=== PATIENT | female | born 1990 | race African-American/Black ===

== ENCOUNTER 2019-11-15 13:06 | Outpatient (CLI) | payer OTHER ==
[2019-11-15 13:42] VITALS: BP 103/54
[2019-11-15 13:51] LABS: BILIRUBIN,URINE NEGATIVE (NEGATIVE); GLUCOSE, URINE (UA) NEGATIVE (NEGATIVE); KETONES,URINE (UA) NEGATIVE (NEGATIVE); LEUKOCYTE ESTERASE, URINE NEGATIVE (NEGATIVE); NITRITE,URINE NEGATIVE (NEGATIVE); OCCULT BLOOD,URINE NEGATIVE (NEGATIVE); PH,URINE 7.5 PH (5.0-7.5); PROTEIN,URINE NEGATIVE (NEGATIVE); UROBILINOGEN,URINE 0.2 (NORMAL) E.U./dL (NORMAL)
[2019-11-15 13:58] LABS: CLARITY,URINE CLEAR (CLEAR)
[2019-11-15 14:29] LABS: RUPTURE OF MEMBRANES PLUS NEGATIVE (NEGATIVE)
--- NOTE | 2019-11-25 13:31 | PROVIDER PROGRESS NOTE ---
- HPI Chief Complaint: Leakage of vaginal fluid (Pt had fluid running down her leg thought it was PROM) Current : Current EDU 02/26/20 Gestation 25 Weeks and 2 Days 2 Para 0 Vital Signs Temperature 36.7 C 11/15/19 13:29 Heart Rate 94 11/15/19 13:29 Respiratory Rate 17 11/15/19 13:29 Blood Pressure 103/54 L 11/15/19 13:29 Temperature 36.7 C 11/15/19 13:29 Heart Rate 94 11/15/19 13:29 Respiratory Rate 17 11/15/19 13:29 Blood Pressure 103/54 L 11/15/19 13:29 O2 Saturation - Procedures OB Procedure Performed: NST Findings: ROM+ negative. reactive NST fro 25 weeks - Plan Plan: Reviewed ROM, FM
== END 2019-11-15 15:00 | disposition home or self-care (01) ==
LOC: WFO 13:06 → FBP 13:09 → WFO 15:00
PROVIDERS: ATTEND Obstetrics & Gynecology
DX: Z34.82 Encounter for supervision of other normal pregnancy, second trimester (principal)
CPT/HCPCS: 81001; 81003; 84112; 87086; 99213

== ENCOUNTER 2019-12-12 14:06 | Outpatient (CLI) | payer OTHER ==
[2019-12-12 14:22] VITALS: BP 123/85
[2019-12-12 15:33] LABS: BILIRUBIN,URINE NEGATIVE (NEGATIVE); GLUCOSE, URINE (UA) NEGATIVE (NEGATIVE); KETONES,URINE (UA) NEGATIVE (NEGATIVE); LEUKOCYTE ESTERASE, URINE TRACE (NEGATIVE); NITRITE,URINE NEGATIVE (NEGATIVE); OCCULT BLOOD,URINE NEGATIVE (NEGATIVE); PH,URINE 7.5 PH (5.0-7.5); PROTEIN,URINE NEGATIVE (NEGATIVE); UROBILINOGEN,URINE 0.2 (NORMAL) E.U./dL (NORMAL)
[2019-12-12 16:20] LABS: BACTERIA,URINE None Seen /HPF (None Seen); CLARITY,URINE CLEAR (CLEAR); RBC,URINE None Seen /HPF (0-5); SQUAMOUS EPITHELIAL CELL,UR MOD Squamous (<= Few)
--- NOTE | 2019-12-12 17:26 | Ultrasound Report ---
PROCEDURE: OB F/U or Repeat INDICATIONS: PTL OUTSIDE/PRIOR DATING DATA: Last menstrual period (LMP): Not available. LMP-based estimated date of delivery (KISHA): Not available. First dating scan (date and location): This study. Estimated date of delivery (KISHA) from first dating scan: 03/04/2020. TECHNIQUE: Real-time scanning was performed of the fetus, with image documentation and biometric measurements. Endovaginal scanning: Not utilized COMPARISON: None. FINDINGS: General: A single living intrauterine gestation is present. Presentation: Vertex Placenta: Placental position is posterior fundal, without previa. Amniotic fluid index: 14.3 cm, normal for gestational age. heart rate: 155 beats per minute. Maternal cervical canal: 5.3 cm long; normal length is 2.5 cm or more. biometrics: Biparietal diameter: 7.1, 28 weeks 5 days Head circumference: 26.2, 28 weeks 3 days Abdominal circumference: 22.9, 27 weeks 2 days Femur length: 5.3, 28 weeks 1 day Estimated gestational age from initial scan: not applicable. Composite gestational age from present scan: 28 weeks 1 day Estimated weight: 1133 g Measurement variability in biometric dating: +/- 10 days from 12-20 weeks gestation, +/- 2 weeks from 20-30 weeks gestation, +/- 3 weeks at 30 weeks gestation or more. Other: Limited visualization of anatomy, brief survey shows normal chest and diaphragm, stomach and abdomen, right and left renal areas, and the urinary bladder.. IMPRESSION: Patient reports anatomy scan previously performed at the [facility]. The current study shows symmetric growth, with estimated current gestational age of 28 weeks 1 d ay and estimated weight of 1133 g with normal amniotic fluid and normal maternal cervical lengt h. Presentation is cephalic, posterior fundal placenta. A normal delivery date projected from the [facility] rent age would be centered on 03/04/2020. Reviewed by: Franklyn Wright MD on 12/12/2019 5:25 PM PDT Approved by: Franklyn Wright MD on 12/12/2019 5:25 PM PDT Station ID: [id number]
[2019-12-12 18:41] LABS: CANDIDA GROUP DNA POSITIVE (NEGATIVE); CANDIDA KRUSEI DNA NEGATIVE (NEGATIVE); TRICHOMONAS VAGINALIS DNA NEGATIVE (NEGATIVE)
--- NOTE | 2019-12-16 19:04 | PROVIDER PROGRESS NOTE ---
- HPI Current : Current EDU 02/26/20 Gestation 29 Weeks and 1 Days 2 Para 0 Vital Signs Temperature 97.9 F 12/12/19 14:21 Heart Rate 106 H 12/12/19 14:21 Respiratory Rate 18 12/12/19 14:21 Blood Pressure 123/85 H 12/12/19 14:21 O2 Saturation 99 12/12/19 14:21 Temperature 97.9 F 12/12/19 14:21 Heart Rate 106 H 12/12/19 14:21 Respiratory Rate 18 12/12/19 14:21 Blood Pressure 123/85 H 12/12/19 14:21 O2 Saturation 99 12/12/19 14:21 - Exam GEN: NAD RESP: nl effort CV: RR AND: gravid, S&NT EXT: WWP NEURO: A&O PSYCH: bright and reactive affect - Procedures OB Procedure Performed: Other (TVCL) Service Date of procedure: 12/12/19 Procedure Details: Patient is a 29 yo at 29+1 wga who presented with left sided abdominal pain. PNC through [facility]. No instigating event. No VB. Endorses FM. No fever or N/V. Denies falls or blos to abdomen. NST: EFM 145 mod nisa 10x10 accels no decels TOCO: quiet A/P: 29 yo at 29+1 wga here with LLQ pain RULE OUT LABOR: -Neg FFN -TVCL 5.2 cm -Vaginititis panel pending -UA wnl -GCCT pending FWB: Cat I/ AGA tracing, adequate growth, ODETTE wnl Reviewed that there are no signs or symptoms of impending labor and CL is very reassuring well being demonstrated on NST and with normal ODETTE and growth on US Reassured patient regarding low risk of labor and reassuring studies Offered assessment in ED for alternative cause of pain, patient declined Discharged to home with routine fu with primary OB
== END 2019-12-12 17:05 | disposition home or self-care (01) ==
LOC: WFO 14:06 → FBP 14:09 → WFO 17:05
PROVIDERS: ATTEND Obstetrics & Gynecology
DX: O26.893 Other specified pregnancy related conditions, third trimester (principal); R10.32 Left lower quadrant pain; Z3A.29 29 weeks gestation of pregnancy
CPT/HCPCS: 76816; 81001; 81003; 81599; 82731; 87081; 87086; 87491; 87591; 87661; 87801; 99215

== ENCOUNTER 2020-01-16 12:30 | Outpatient (CLI) | payer OTHER ==
[2020-01-16 12:50] LABS: RED CELL DISTRIBUTION WIDTH 15.2 % (12.0-15.0)
[2020-01-16 12:55] LABS: HGB - HEMOGLOBIN 10.6 g/dL (12.0-16.0); MEAN CORPUSCULAR HEMOGLOBIN 22.9 pg (27.0-31.0); MEAN CORPUSCULAR HGB CONC 30.7 g/dL (32.0-36.0); MEAN CORPUSCULAR VOLUME 74.7 fL (81.0-99.0); PLT - PLATELET COUNT 195 10^3/uL (130-450); RED BLOOD COUNT 4.62 10^6/uL (4.20-5.40)
== END 2020-01-16 12:31 | disposition home or self-care (01) ==
LOC: LAB 12:30
PROVIDERS: ATTEND Advanced Practice Midwife
DX: O99.019 Anemia complicating pregnancy, unspecified trimester (principal)
CPT/HCPCS: 36415; 85027

== ENCOUNTER 2020-01-29 07:00 | Outpatient (CLI) | payer OTHER | END 2020-01-29 23:59 | disposition home or self-care (01) | LOC: LAB.R 07:00 | PROVIDERS: ATTEND Nurse Practitioner Obstetrics & Gynecology | DX: Z36.85 Encounter for antenatal screening for Streptococcus B (principal) | CPT/HCPCS: 87797 ==

== ENCOUNTER 2020-02-02 04:24 | Outpatient (CLI) | payer OTHER ==
[2020-02-02 04:42] VITALS: BP 117/70
[2020-02-02] MEDS ORDERED: ACETAMINOPHEN 500 MG TABLET PO PRN (05:06)
--- NOTE | 2020-02-02 08:58 | PROVIDER PROGRESS NOTE ---
- HPI Chief Complaint: Labor Check Current : Current EDU 02/26/20 Gestation 36 Weeks and 4 Days 2 Para 0 Vital Signs Temperature 98.3 F 02/02/20 04:40 Heart Rate 90 02/02/20 04:40 Respiratory Rate 16 02/02/20 04:40 Blood Pressure 117/70 02/02/20 04:40 O2 Saturation 100 02/02/20 04:40 Temperature 98.3 F 02/02/20 04:40 Heart Rate 90 02/02/20 04:40 Respiratory Rate 16 02/02/20 04:40 Blood Pressure 117/70 02/02/20 04:40 O2 Saturation 100 02/02/20 04:40 - Exam Closed, thick, high x2 exams - Procedures OB Procedure Performed: NST Service Date of procedure: 02/02/20 Procedure Details: Placed on monitor by RN Findings: Pt c/o 01/10 low back pain but was smiling/laughing at the time. Constant pain starting at shoulder area and radiating downward. No VB, no LOF. Good FM. NST category 1. Rowan irritable. SVE unchanged. Pt offered tylenol for back pain, she declined. Offered hands/knees to get baby off sacrum, she declined. Did improve spontaneously with laying on the right side. A/P: Threatened labor, lumbago Labor precautions, f/u at next routine appointment.
== END 2020-02-02 06:26 | disposition home or self-care (01) ==
LOC: WFO 04:24 → FBP 04:25 → WFO 06:26
PROVIDERS: ATTEND Obstetrics & Gynecology
DX: O60.03 Preterm labor without delivery, third trimester (principal); O99.891 Other specified diseases and conditions complicating pregnancy; M54.5 Low back pain
CPT/HCPCS: 99213

== ENCOUNTER 2020-02-13 14:00 | Outpatient (CLI) | payer OTHER ==
[2020-02-13 14:44] VITALS: BP 120/73
--- NOTE | 2020-02-14 12:55 | PROVIDER PROGRESS NOTE ---
- HPI Chief Complaint: Labor Check Current : Current EDU 02/26/20 Gestation 38 Weeks and 1 Days 2 Para 0 Vital Signs Heart Rate 101 H 02/13/20 14:15 Respiratory Rate 17 02/13/20 14:15 Blood Pressure 120/73 02/13/20 14:15 Temperature Heart Rate 101 H 02/13/20 14:15 Respiratory Rate 17 02/13/20 14:15 Blood Pressure 120/73 02/13/20 14:15 O2 Saturation - Plan Plan: S: 29yo at 38.1wks gestation presents for a term labor check with complaints of contractions. O: Cervix unable to be reached by RN FHT 145, accels, no decels, moderate variability Contractions every 2-intermittent, minutes A: 29yo at 38.1 wks gestation Not in active labor FHTs Cat I P: Discharge to home with education to labor precautions Continue with routine care
== END 2020-02-13 16:00 | disposition home or self-care (01) ==
LOC: WFO 14:00 → FBP 14:04 → WFO 16:00
PROVIDERS: ATTEND Advanced Practice Midwife
DX: Z34.83 Encounter for supervision of other normal pregnancy, third trimester (principal); Z3A.38 38 weeks gestation of pregnancy
CPT/HCPCS: 99213

== ENCOUNTER 2020-03-02 17:36 | Inpatient (IN) | payer OTHER ==
[2020-03-02 19:02] LABS: RUPTURE OF MEMBRANES PLUS NEGATIVE (NEGATIVE)
[2020-03-02] MEDS ORDERED: miSOPROStoL 100 MCG TABLET BC ONE (20:01)
[2020-03-02] MEDS ORDERED: LACTATED RINGERS 500 ML IV ONE (20:22)
[2020-03-02] MEDS: LACTATED RINGERS 1,000 ML IV SCH (21:30)
--- NOTE | 2020-03-02 22:39 | PROVIDER PROGRESS NOTE ---
- HPI Chief Complaint: Leakage of vaginal fluid Current : Current EDU 02/26/20 Gestation 40 Weeks and 5 Days 2 Para 0 Vital Signs Temperature 37.4 C 03/02/20 17:45 Heart Rate 98 03/02/20 17:45 Respiratory Rate 18 03/02/20 17:45 Blood Pressure 127/78 03/02/20 17:45 O2 Saturation 99 03/02/20 17:45 Temperature 37.4 C 03/02/20 17:45 Heart Rate 98 03/02/20 17:45 Respiratory Rate 18 03/02/20 17:45 Blood Pressure 127/78 03/02/20 17:45 O2 Saturation 99 03/02/20 17:45 - Procedures OB Procedure Performed: NST Diagnosis/Indication for NST: Decreased movement Service Date of procedure: 03/02/20 - Plan Plan: S: 29yo @ 40.5wks gestation by LMP c/w 12.0wk U/S presented to [facility] on 03/02/2020 at approximately 1757 with c/o decreased movement since this morning as well as two episodes of leakage of clear vaginal fluid she describes as "silver dollar-sized puddles" at approximately 1615. She reports intermittent contractions mostly at night for the past several nights. She states last night the contractions kept her awake for most of the night due to them being increasingly uncomfortable. She states she feel asleep early this morning and when she woke up the contractions had stopped. She denies continue leakage of fluid. Upon arrival she did note a few movements. She denies vaginal bleeding. O: FHR baseline appears to be 150s however, overall the baseline is indeterminate with moderate variability and occasional late decelerations, + accelerations. Intermittent periods of tachycardia. Difficult to determine FHR Category - appears category II with overall reassuring status secondary to moderate variability. Contractions palpate mild intermittently. Patient reports feeling an occasional contraction but overall denies consistent contractions. SVE 1/50/-3, posterior. Vertex. ROM+ negative A: 29yo @ 40.5wks gestation FHR Category II GBS positive P: Admit for active management secondary to FHR Category II Insert dodge cervical ripening balloon. Continuous monitoring. Place on telemetry monitoring to ensure continuous monitoring as patient has taken herself off the monitor to use the bathroom several times. Consult with investigation division captain physician who is in agreement with above plan.
[2020-03-02] MEDS ORDERED: LIDOCAINE-MPF 1% 30 ML VIAL ID PRN (22:41)
[2020-03-02] MEDS ORDERED: miSOPROStoL 200 MCG TABLET BC PRN (22:41)
[2020-03-02] MEDS ORDERED: SODIUM CHLORIDE FLUSH 0.9% 10 ML SYRINGE IVP PRN (22:41)
[2020-03-02] MEDS ORDERED: METHYLERGONOVINE 0.2 MG/ML VIAL IM PRN (22:41)
[2020-03-02] MEDS ORDERED: TRANEXAMIC ACID 1,000 MG in SODIUM CHLORIDE 0.9% 100ML 100 ML IV PRN (22:41)
[2020-03-02] MEDS ORDERED: OXYTOCIN/SODIUM CHLORIDE 500 ML IV PRN (22:41)
[2020-03-02] MEDS ORDERED: CARBOPROST TROMETHAMINE 250 MCG/ML AMP IM PRN (22:41)
[2020-03-02] MEDS ORDERED: OXYTOCIN 10 UNIT/ML VIAL IM PRN (22:41)
[2020-03-02] MEDS ORDERED: AMPICILLIN 2 GM in SODIUM CHLORIDE 0.9% MINIBAG 100 ML IV ONE (22:47)
--- NOTE | 2020-03-02 22:47 | HISTORY & PHYSICAL EXAMINATION ---
Admit History - Visit Reason Visit Reason: Other - : 2 Parity: 0 Premature: 0 Ectopic: 0 : 1 Care: positive: [facility] Risk/History: positive: None Complications This : positive: None Smoking Status: Never smoker - Mother's Labs Mother's Blood Type: positive: O Mother's RH: positive: Positive GBS: positive: Group B Strep Positive Rubella Status: positive: Immune Meds/Allgy - Allergies Allergies/Adverse Reactions: Allergies Allergy/AdvReac Type Severity Reaction Status Date / Time No Known Drug Allergies Allergy Verified 02/02/20 05:46 Review of Systems - Constitutional Constitutional: denies: Fatigue, Fever, Chills, Malaise - Eyes Eyes: denies: Blurred vision, Spots in vision, Dipolpia - Cardiovascular Cariovascular: denies: Irregular heart rate, Palpitations, Chest pain, Edema - Respiratory Respiratory: denies: Cough, SOB at rest - Gastrointestinal Gastrointestinal: denies: Change in bowel habits - Integumentary Integumentary: denies: Rash, Pruritis - Neurological Neurological: denies: Headache, Dizziness Physical - Abdominal Exam Vital Signs: Temp Pulse Resp BP Pulse Ox 37.4 C 98 18 127/78 99 03/02/20 17:45 03/02/20 17:45 03/02/20 17:45 03/02/20 17:45 03/02/20 17:45 Contraction Frequency (min/apart): occasional Contraction Intensity: positive: Mild Uterine Resting Tone: positive: Soft - Monitoring Heart Rate Baseline: 140 Strip Review: positive: Category II - Presentation Presentation: positive: Vertex - Vaginal Exam Membranes: positive: Membranes intact Dilation (in cm): 1 Effacement (%): 50 Station: positive: -3 Cervical Position: positive: Posterior - Speculum Exam Speculum Exam Performed: positive: No Findings: positive: Other Plan for Labor - Plan For Labor I expect patient to be DC'd or transferred within 96 hours.: Yes Plan for Labor: HPI: This 29yo @ 40.5wks gestation by LMP c/w 12wk U/S presented to [facility] on 03/02/2020 at approximately 1750 with c/o decreased movement and leakage of fluid which had resolved upon arrival. ROM+ was negative. FHR pattern difficult to assess secondary to inability to determine baseline. Moderate variability, + accels, intermittent late decerlations one of which appears to be deep and prolonged to 90bpm. SVE /-3, posterior, vertex. The decision was made to admit the patient for active management secondary to FHR Category II pattern. Margoth has been a patient of [facility] since 32wks gestation at which time she transferred care from [facility]. She has received consistent care through the duration of her which has remained uncomplicated with the exception of testing positive for GBS at 36wks gestation. She is accompanied and supported by her Shade. 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 ODETTE WNL. Cervix long and closed, 3VC. Size c/w dating. Glucola: 105 Influenza: declined TDAP declined GBS at 36.0 wks- POSITIVE IPAP HSV: denies is in self or partner Breast pump Rx provided previously MOD: Anticipate ; FOB Shade; It's a BOYI - Patel; "wait and see" approach to pain management. Want to ensure they are informed about all decisions made/vaccinations given BEFORE they are done for baby. Accepting of Vit K but will likely decline e rythromycin and delay Hep B. pp contraception: rhythm/condoms/withdrawal- tracks cycle. Discussed changes in pp cycle/ Physical Exam: Normocephalic, atraumatic Heart RRR w/o M/G/R Lungs CTAB Abdomen gravid, soft, nontender FHR at present baseline 140s, moderate variability, + accels, no decels Contractions palpate mild-moderate every 3-8 minutes with soft resting tone. SVE 1/50/-3, posterior. Vertex. Intact membranes. Cervical ripening balloon placed with 60cc normal saline in uterine balloon and 60cc normal saline in vaginal balloon. Bilateral LE's no edema Mood is good. Assessment: 29yo @ 40.5wks gestation by LMP c/w 12.0wk U/S FHR Category II-overall reassuring GBS positive Plan: Continuous monitoring. Cervical ripening balloon placed without difficulty and pt tolerated placement well. Telemetry monitors to ensure continuous monitoring. GBS positive - initiate IPAP with SROM, AROM, or labor onset Nitrous oxide PRN. Epidural per maternal request. Anticipate .
[2020-03-02 23:59] LABS: BASOPHILS % (AUTO) 0.4 %; EOSINOPHILS % (AUTO) 0.7 %; HGB - HEMOGLOBIN 10.7 g/dL (12.0-16.0); LYMPHOCYTES % (AUTO) 28.3 %; MEAN CORPUSCULAR HEMOGLOBIN 23.2 pg (27.0-31.0); MEAN CORPUSCULAR HGB CONC 30.9 g/dL (32.0-36.0); MEAN CORPUSCULAR VOLUME 74.9 fL (81.0-99.0); MONOCYTES % (AUTO) 6.8 %; NEUTROPHILS % (AUTO) 63.2 %; PLT - PLATELET COUNT 153 10^3/uL (130-450); RED BLOOD COUNT 4.62 10^6/uL (4.20-5.40); RED CELL DISTRIBUTION WIDTH 15.3 % (12.0-15.0); WHITE BLOOD COUNT 10.7 x10^3/uL (4.8-10.8)
[2020-03-03 00:01] LABS: ABNORMAL LYMPHS % (MANUAL) 0 %
[2020-03-03 00:23] LABS: BAND NEUTROPHILS % (MANUAL) 1 %; DIFFERENTIAL COMMENT MANUAL DIFFERENTIAL; LYMPHOCYTES # (MANUAL) 2.7 10^3/uL (1.5-3.5); LYMPHOCYTES % (MANUAL) 25 %; MONOCYTES # (MANUAL) 0.6 10^3/uL (0.0-1.0); PLATELET ESTIMATE, MANUAL NORMAL (130-450,000) (NORMAL); RBC MORPHOLOGY (MULTIPLE) NORMAL APPEARANCE (NORMAL)
[2020-03-03] MEDS ORDERED: SODIUM CHLORIDE FLUSH 0.9% 10 ML SYRINGE IVP SCH (01:00)
--- NOTE | 2020-03-03 06:42 | PROVIDER PROGRESS NOTE ---
Labor Progress Note - Uterine Monitoring Uterine Monitoring Mode: positive: External toco Contraction Frequency (min/apart): 3-7 Contraction Intensity: positive: Mild Uterine Resting Tone: positive: Soft - Monitoring Monitor Mode: positive: External ultrasound Heart Rate Baseline: 135 Heart Rate Variability: positive: Moderate (6-25 bmp) Accelerations: positive: Present, 15x15 Decelerations: positive: None Strip Review: positive: Category I - Labor Progress Note Labor Progress Note/Additional Text: S: Left side lying in bed feeling much improved with use of nitrous oxide during contractions. She feels like she is coping well overall. She states she was only able to get approximately 1 hour of sleep last night. supportive at the bedside. O: BP 116/69, T36.5 FHR baseline 135, moderate variability, + accels, no decels Contractions palpate mild every 3-7 minutes with soft resting tone SVE deferred at this time. Cervical ripening balloon in place since 2332 (7 hours) A: 29yo @ 40.6wks gestation by LMP c/w 12.0wk U/S FHR Category I at present IOL secondary to initial Category II FHR tracing GBS positive P: Continue active management Leave cervical ripening balloon in place x 12 hours then remove and reassess SVE. Misoprostol vs pitocin with removal of cervical ripening balloon Continuous monitoring Nitrous oxide PRN. Jaccuzzi PRN. Epidural per maternal request. Encouraged ambulation and frequent position changes this morning. Anticipate .
[2020-03-03] MEDS ORDERED: ONDANSETRON 4 MG/2 ML VIAL IVP PRN (12:25)
--- NOTE | 2020-03-03 12:35 | PROVIDER PROGRESS NOTE ---
Labor Progress Note - Uterine Monitoring Uterine Monitoring Mode: positive: External toco Contraction Frequency (min/apart): 3-9 Contraction Intensity: positive: Mild Uterine Resting Tone: positive: Soft - Monitoring Monitor Mode: positive: External ultrasound Heart Rate Baseline: 135 Heart Rate Variability: positive: Moderate (6-25 bmp) Accelerations: positive: Present, 15x15 Decelerations: positive: None Strip Review: positive: Category I - Vaginal Exam Dilation (in cm): 4 Effacement (%): 70 Station: -3 Cervical Position: Posterior - Labor Progress Note Labor Progress Note/Additional Text: S: Breathing through contractions with use of nitrous oxide. She feels this is working well to manage her pain at this time but is worried with initiation of pitocin that she may need more for pain management and is open to an epidural for pain management. She is hoping to remain mobile for as long as possible. Anesthesia provider previously met with her regarding epidural placement and pt states she felt her questions were answered. Her mood is improved however she continues to experience some anxiety around labor process and concern for distress. Feels better after prolong discussion regarding continuous monitoring and voices reassurance. Her is supportive at the bedside. O: FHR baseline 135, moderate variability, + accels, no decels Contractions palpate mild every 3-9 minutes with soft resting tone Escoto cervical ripening balloon removed without difficulty and pt tolerated removal well (60cc uterine removed, 60cc vaginal removed) SVE 3-4/70/-3, posterior, soft. Vertex. Intact membranes A: 29yo @ 40.6wks gestation by LMP c/w 12.0wk U/S FHR Category I at this time - previously Category II Hernandes score - favorable at this time GBS positive P: Initiate antibiotics for GBS prophylaxis now Initiate pitocin for induction of labor with titration per protocol Continuous monitoring Continue nitrous oxide PRN. Anesthesia notified for placement of early epidural placement without medication infusion. Pt then instructed to notify when she desires higher degree of pain management and will then notify anesthesia to initiate epidural anesthesia. Anticipate . Reviewed plan of care with pt and RN at the bedside who are in agreement with above plan and deny further questions or concerns at this time.
[2020-03-03] MEDS ORDERED: OXYTOCIN/SODIUM CHLORIDE 500 ML IV SCH (13:00)
[2020-03-03] MEDS: LACTATED RINGERS 1,000 ML IV SCH ×2 (14:20→18:52)
--- NOTE | 2020-03-03 16:00 | PROVIDER PROGRESS NOTE ---
Labor Progress Note - Uterine Monitoring Uterine Monitoring Mode: positive: External toco Contraction Frequency (min/apart): 2-6 Contraction Intensity: positive: Mild Uterine Resting Tone: positive: Soft - Monitoring Monitor Mode: positive: External ultrasound Heart Rate Baseline: 135 Heart Rate Variability: positive: Moderate (6-25 bmp) Accelerations: positive: Present, 15x15 Decelerations: positive: Late, Intermittent (<50% x20 min) Strip Review: positive: Category I - Labor Progress Note Labor Progress Note/Additional Text: Patient teary and continues to be concerned about intermittent decelerations. I reviewed extensively that the overall status is reassuring. She verbalizes again the desire for delivery to ensure her baby does not experience any distress. Discussed FHR characteristic and what we look for to determine reassurance vs need for surgical delivery. Discussed moderate variability in heart rate. Discussed intermittent vs recurrent decelerations. Reviewed options for continued induction of labor and avoidance of delivery at this time. Discussed AROM, IUPC placement, amnioinfusion, and continuation of pitocin as management options. I recommended proceeding with pitocin IOL at this time however both the patient and her remain hesitant. I feel it is necessary to contact account liaison physician to after school counselor patient regarding options and discuss risk vs benefits of proceeding with a delivery at this time vs continued induction. weight caller physician notified and will present for evaluation, counseling of patient, and development of continued plan of care. Pt and verbalized understanding. All questions answered in depth and they denied further questions or concerns at this time.
[2020-03-03] MEDS: AMPICILLIN 1 GM in SODIUM CHLORIDE 0.9% MINIBAG 100 ML IV SCH ×2 (16:20→22:09)
--- NOTE | 2020-03-03 18:45 | PROVIDER PROGRESS NOTE ---
Labor Progress Note - Uterine Monitoring Uterine Monitoring Mode: positive: External toco Contraction Frequency (min/apart): 2-4 Contraction Intensity: positive: Moderate Uterine Resting Tone: positive: Soft - Monitoring Monitor Mode: positive: External ultrasound Heart Rate Baseline: 140 Heart Rate Variability: positive: Moderate (6-25 bmp) Accelerations: positive: Present, 15x15 Decelerations: positive: None Strip Review: positive: Category I - Labor Progress Note Labor Progress Note/Additional Text: S: Patient just moving from jacuzzi to bed. Feels she is coping well with contractions at this time. Feeling increased confidence in our plan of care after talking with the communication coordinator physician. Her Shade is supportive at the bedside. O: BP 131/90 FHR baseline 140s, moderate variability, + accels, no decels at this time Contractions palpate moderate every 2-4 minutes with soft resting tone A: 29yo @ 40.6wks gestation by LMP C/w 12.0wk U/S IOL secondary to intermittent Category II FHR pattern- overall reassuring GBS positive - s/p 2 doses of IV abx for prophylaxis P: Continue pitocin IOL with titration per protocol Continuous monitoring Consider AROM with next SVE Encouraged ambulation and position changes. Epidural per maternal request. Reviewed plan of care with pt and partner at the bedside who are in agreement with above plan and deny questions or concerns at this time.
--- NOTE | 2020-03-03 19:26 | CONSULTATION NOTE ---
History of Present Illness - History of Present Illness HPI Comment/Other: Requesting service: CNM Requesting provider: Game Producer Evens Reason for consultation: patient inquiring about HPI: Patient had a sensation of loss of fluid at 17:50. Had no movement for 45min around this time but FM felt as normal on arrival to the hospital. No bleeding or contractions. Due to her tracing on admission and being post- dates, she was admitted for labor management. Her ROM plus test indicated non-rupture and Margoth didn't experience further loss of fluid. She was 1/50/- 3/posterior on admission and received cervical ripening with a balloon. The balloon was removed this afternoon after 12h and she was 3-4cm then and pitocin was started. Patient has had a handful of decelerations throughout her hospitalization and this concerns her. She is afraid that the baby will . She does not want to attempt vaginal delivery and then end up with a due to distress. She would like to do a if it is as safe as vaginal delivery. PMH: some anemia prior to PSH: neg Allergies: NKDA Meds: PNV and Fe daily SH: no t/e/d FH: no anesthesia problems OB: with an early SAB. Uncomplicated . Initial U/S: 08/20/2019 @ 12.0wks c/w LMP dating O pos/Rubella immune VZV: immune Genetic testing: Serum integrated screen - negative; CF neg FAS: 10/11/2019 WNL, posterior placenta, no previa. ODETTE WNL. Cervix long and closed, 3VC. Size c/w dating. Glucola: 105 Influenza: declined TDAP declined GBS at 36.0 wks- POSITIVE HSV: denies is in self or partner Breast pump Rx provided previously MOD: Anticipate ; FOB Shade; It's a BOYI - Patel; "wait and see" approach to pain management. Want to ensure they are informed about all decisions made/vaccinations given BEFORE they are done for baby. Accepting of Vit K but will likely decline erythromycin and delay Hep B. pp contraception: rhythm/condoms/withdrawl- tracks cycle. Discussed changes in pp cycle/ O: AVSS Alert, comfortable, good eye contact, NAD Abd soft, nt/nd Fundus nontender Moustapha 8# EFW SVE 4/75/-3/soft/posterior/vertex Pelvis is adequate Hct 34, plts 153 tracing: category 1 unless otherwise noted--with moderate LTV and accelerations present. -Tracing on admission 03/02 difficult to interpret due to lack of clear baseline which could be 150-160 with accels vs. 175 with decels. Moderate LTV throughout. Lowest rate is about 145. -Probable variable with late return from 20:26 to 20:30 03/02 (baseline still unclear but the shape appears to be c/w this) -Deceleration at 21:17 03/02 caught at 80BPM and lasting for 2.5min longer associated with patient coming back to bed from the bathroom. Prior to restroom had a normal baseline of 130. -Category 2 tracing from 14:03 to 14:35 03/03: baseline 145, moderate LTV, 2 ac cels present, 3 late decels present--resolved with IVF bolus Webber: current contractions 4 in 10min A/P: 29yo at 40w6d by LMP c/w 12w US, undergoing IOL due to post-dates and indeterminant NST on admission. She was told that IOL was recommended due to her tracing--and then she has had a few decelerations since that time which required management with position changes and fluid boluses. This has made her very nervous about the status of her well-being and she is afraid that the baby will . We discussed that the vast majority of her tracing has been Category 1/good. She has never had anything but moderate LTV which is reassuring. Currently wellbeing is normal/good based on the available data. Reviewed that she has had some decelerations which are likely due to placental problems--and that these have improved after efforts to improve placental function--position changes and IVF boluses. Reviewed that she has no contraindications to vaginal delivery--healthy mom, normal anatomy scan, vertex with adequate pelvis and normal EFW. Discussed that unfortunately adverse events can happen but that babies generally do not due to declerations. Decelerations can usually be managed with things including terbutaline but sometimes not and an emergency could be indicated PRN refractory deceleration. Discussed risk of vs. vaginal delivery. C-sections are generally safer for babies and vaginal deliveries are generally safer for moms. Both with similar risk of bleeding and infection. Trauma is possible with both types of delivery but in different locations. The important difference is the risk to future pregnancies due to scar on the uterus. Margoth and her partner have been hoping for a large family--4 kids or more. discussed increasing risk to and to mother with more c-sections including abnormal placentation that can lead to severe morbidity/mortality. TOLAC is an option and that does confer additional risk due to potential for scar disruption. Currently is not required but it would be reasonable to do one if she really wishes. Questions answered and then patient and partner discussed things privately. They had no questions afterward and did decide to continue attempted vaginal delivery now in order to try to avoid complications with future pregnancies + there is no current indication that is immediately needed. she will do open-hip exercises to try to facilitate a functional descent. She was offered AROM and declines for now. Will manage pitocin to achieve an adequate labor pattern--currently contractions are frequent enough but they are not painful and they palpate mild. GBS +, is on ampicillin prophylaxis O+, RI, declined flu vax and tdap. Will re-offer to pt . This note was done at 18:00 but not signed. at 20:00 pt had 4 late decels associated with her laying on her back for AROM. AROM for meconium stained fluid. SVE unchanged. Had accelerations after sitting up post AROM. Continue to closely observe. Meds/Allgy - Allergies Allergies/Adverse Reactions: Allergies Allergy/AdvReac Type Severity Reaction Status Date / Time No Known Drug Allergies Allergy Verified 02/02/20 05:46 Conclusion/Plan - Lab Results Fish Bones: 03/02/20 23:45
--- NOTE | 2020-03-03 20:18 | PROVIDER PROGRESS NOTE ---
Labor Progress Note - Uterine Monitoring Uterine Monitoring Mode: positive: External toco Contraction Frequency (min/apart): 2-4 Contraction Intensity: positive: Moderate Uterine Resting Tone: positive: Soft - Monitoring Monitor Mode: positive: External ultrasound Heart Rate Baseline: 145 Heart Rate Variability: positive: Moderate (6-25 bmp) Accelerations: positive: Present, 15x15 Decelerations: positive: Late, Intermittent (<50% x20 min) Strip Review: positive: Category II - Vaginal Exam Dilation (in cm): 4 Effacement (%): 75 Station: -1 Cervical Position: Posterior - Labor Progress Note Labor Progress Note/Additional Text: S: Feeling more uncomfortable with contractions following AROM. She is breathing with the nitrous oxide which she feels gives her some relief. Shade supportive at the bedside. O: FHR baseline 145, moderate variability, + accels, intermittent late decelerations with moderate variability maintained throughout. FHR responds to position changes and IV fluid bolus. Contractions palpate moderate every 2-4 minutes with soft resting tone. SVE unchanged (75/-3, posterior) AROM moderate amount of light meconium stained amniotic fluid BP 136/88 A: 29yo @ 40.6wks gestation by LMP c/w 12.0wk U/S FHR Category II - overall reassuring P: Continuous monitoring Continue pitocin IOL Continue IPAP for GBS prophylaxis Repeat SVE x [address] IUPC if unchanged.
[2020-03-03] MEDS ORDERED: ROPIVACAINE 0.2% 200 MG/100 ML BAG EP ONE (21:48)
--- NOTE | 2020-03-03 21:50 | PROVIDER PROGRESS NOTE ---
Labor Progress Note - Uterine Monitoring Uterine Monitoring Mode: positive: External toco Contraction Frequency (min/apart): 2-4 Contraction Intensity: positive: Moderate Uterine Resting Tone: positive: Soft - Monitoring Monitor Mode: positive: External ultrasound Heart Rate Baseline: 140 Heart Rate Variability: positive: Moderate (6-25 bmp) Accelerations: positive: Present, 15x15 Decelerations: positive: Late, Intermittent (<50% x20 min) Strip Review: positive: Category II - Vaginal Exam Dilation (in cm): 5 Effacement (%): 80 Station: -3 Cervical Position: Posterior - Labor Progress Note Labor Progress Note/Additional Text: S: Moaning and crying through contractions and requests epidural for pain management at this time. Shade supportive at the bedside. O: FHR baseline 140s, moderate variability, + accels, intermittent late decelerations - overall reassuring Contractions palpate moderate every 2-4 minutes with soft resting tone SVE 5/80/-3, posterior. Vertex. Pitocin at 6mU/mL A: 29yo @ 40.6wks gestation IOL - early labor FHR Category II - overall reassuring GBS positive P: Continuous monitoring Continue pitocin IOL with titration per protocol Anesthesia present for placement of epidural per maternal request.
[2020-03-03] MEDS ORDERED: NALBUPHINE 10 MG/ML AMP IVP PRN (22:06)
[2020-03-03] MEDS ORDERED: ePHEDrine 50 MG/ML VIAL IVP PRN (22:06)
[2020-03-03] MEDS ORDERED: ROPIVACAINE 0.2% 200 MG/100 ML BAG EP PRN (22:06)
[2020-03-03] MEDS ORDERED: NALOXONE 0.4 MG/ML VIAL IVP PRN (22:06)
--- NOTE | 2020-03-03 22:06 | ANESTHESIA ---
Pre-Anesthesia VS, & Labs - Diagnosis active labor - Procedure vaginal delivery Vital Signs: Temp Pulse Resp BP Pulse Ox 36.7 C 98 18 127/78 99 03/03/20 02:38 03/02/20 17:45 03/02/20 17:45 03/02/20 17:45 03/02/20 17:45 Height: 5 ft 7 in Weight (kg): 80.286 kg Body Mass Index: 27.7 BMI Classification: Overweight - NPO Other (N/A labor) - Is Patient ?: Yes - Lab Results Current Lab Results: Laboratory Tests 03/02/20 23:45: WBC 10.7, RBC 4.62, Hgb 10.7 L, Hct 34.6 L, MCV 74.9 L, MCH 23.2 L, MCHC 30.9 L, RDW 15.3 H, Plt Count 153, Neut # (Auto) Not Reportable, Lymph # (Auto) Not Reportable, [place] # (Auto) Not Reportable, Eos # (Auto) Not Reportable, Baso # (Auto) Not Reportable, Absolute Nucleated RBC Not Reportable, Total Counted 100, Band Neuts % (Manual) 1, Abnorm Lymph % (Manual) 0, Nucleated RBC % Not Reportable, Neutrophils # (Manual) 7.4 H, Lymphocytes # (Manual) 2.7, Monocytes # (Manual) 0.6, Eosinophils # (Manual) 0.0, Basophils # (Manual) 0.0, Differential Comment MANUAL DIFFERENTIAL, Platelet Estimate NORMAL (130- 450,000), RBC Morph Micro Appear NORMAL APPEARANCE 03/02/20 23:45: Blood Type O POSITIVE, Antibody Screen NEGATIVE Fish Bones: 03/02/20 23:45 Home Medications and Allergies Active Medications Carboprost Tromethamine (Carboprost Tromethamine 250 Mcg/Ml Amp) 250 mcg IM Q15M PRN PRN Reason: Step 4: Hemorrhage protocol Stop: 03/07/20 22:42 Lactated Ringer's (Lr) 1,000 mls @ 125 mls/hr IV .Q8H SHANIA Last Infusion: 03/03/20 19:06 Dose: 125 mls/hr Documented by: Oxytocin/Sodium Chloride (Pitocin/Sodium Chloride) 500 mls @ 999 mls/hr IV PRN PRN; Protocol PRN Reason: POST- HEMORR PREVENTION Stop: 03/07/20 22:42 Tranexamic Acid 1,000 mg/ (Sodium Chloride) 110 mls @ 660 mls/hr IV .ONCE PRN PRN Reason: EBL >1200mL and within 3hr Stop: 03/07/20 22:42 Ampicillin Sodium 1 gm/ Sodium (Chloride) 100 mls @ 200 mls/hr IV Q4H [facility] Last Infusion: 03/03/20 16:57 Dose: Infused Documented by: Oxytocin/Sodium Chloride (Pitocin/Sodium Chloride) 500 mls @ 1 mls/hr IV TITR [facility]; Protocol Last Admin: 03/03/20 13:47 Dose: 1 milliunit/min, 1 mls/hr Documented by: Lidocaine HCl (Lidocaine-Mpf 1% 30 Ml Vial) 30 ml ID .ONCE PRN PRN Reason: PERINEAL REPAIR Stop: 03/07/20 22:42 Methylergonovine Maleate (Methylergonovine 0.2 Mg/Ml Vial) 0.2 mg IM .ONCE PRN PRN Reason: Step 2: Hemorrhage protocol Stop: 03/07/20 22:42 Misoprostol (Misoprostol 200 Mcg Tablet) 800 mcg BC .ONCE PRN PRN Reason: Step 3: Hemorrhage protocol Stop: 03/07/20 22:42 Ondansetron HCl (Ondansetron 4 Mg/2 Ml Vial) 4 mg IVP Q6HR PRN PRN Reason: Nausea / Vomiting Oxytocin (Oxytocin 10 Unit/Ml Vial) 10 unit IM .ONCE PRN PRN Reason: Step one: If no IV access Stop: 03/07/20 22:42 Sodium Chloride (Sodium Chloride Flush 0.9% 10 Ml Syringe) 10 ml IVP 0100,0900,1700 [facility] Last Admin: 03/03/20 06:31 Dose: 10 ml Documented by: Sodium Chloride (Sodium Chloride Flush 0.9% 10 Ml Syringe) 10 ml IVP PRN PRN PRN Reason: NEEDED PER PROVIDER ORDERS Last Admin: 03/03/20 06:31 Dose: 10 ml Documented by: Allergies/Adverse Reactions: Allergies Allergy/AdvReac Type Severity Reaction Status Date / Time No Known Drug Allergies Allergy Verified 02/02/20 05:46 Anes History & Medical History - Anesthetic History Family history of Anesthesia Complications: Denies Family history of Malignant Hyperthermia: Denies - Medical History Cardiovascular: reports: None Pulmonary: reports: None Gastrointestinal: reports: None Urinary: reports: None Neuro: reports: None Musculoskeletal: reports: None Endocrine/Autoimmune: reports: None Blood Disorders: reports: None Skin: reports: None Smoking Status: Never smoker Psychosocial: reports: No issues indicated History of Cancer?: No - Obstetrical History : 2 Parity: 0 Events: positive: None Complications: positive: None Exam General: Alert, Oriented x3, Cooperative, No acute distress Dental: WNL Mouth Openin Fingerbreadth Neck Mobility: Normal Mallampati classification: II Mental/Cognitive Status: Alert/Oriented X3, Normal for patient Plan Anesthesia Type: Epidural Consent for Procedure(s) Verified and Reviewed: Yes Code Status: Attempt Resuscitation ASA classification: 2-Mild systemic disease Is this case an emergency?: No
[2020-03-03] MEDS ORDERED: TERBUTALINE 1 MG/ML VIAL SUBQ ONE (22:38)
--- NOTE | 2020-03-03 23:13 | PROVIDER PROGRESS NOTE ---
Labor Progress Note - Uterine Monitoring Uterine Monitoring Mode: positive: IUPC Contraction Frequency (min/apart): 2-4 Contraction Intensity: positive: Moderate to strong Uterine Resting Tone: positive: Soft - Monitoring Monitor Mode: positive: External ultrasound Heart Rate Baseline: 150 Heart Rate Variability: positive: Moderate (6-25 bmp) Accelerations: positive: Present, 15x15 Decelerations: positive: Late, Intermittent (<50% x20 min) Strip Review: positive: Category II - Vaginal Exam Dilation (in cm): 5 Effacement (%): 90 Station: -3 Cervical Position: Posterior - Labor Progress Note Labor Progress Note/Additional Text: S: Patient feeling significant improvement in pain with epidural placement. She reports she is very tired. Following FHR deceleration she verbalizes concern for well being but voices reassurance following discussion with providers. Shade supportive at the bedside. Both patient and her verbalized feeling comfortable with plan to proceeding forward with induction of labor and working to achieve a vaginal delivery.Pt denies light headedness or dizziness at that time. O: FHR baseline 150s at present. Late deceleration shortly after epidural placement with onset at approximately 2222. Patient was rotate in bed to right side, then left side, then right side. Patient then assisted to hands and knees position. Pitocin shut off. Terbutaline 0.25mcg administered in patient's right thigh. O2 via facemask placed. FSE placed. IUPC placed BP 111/50. HR 130s. T 36.5 SVE 5/90/-3, posterior. Vertex. A: 29yo @ 40.6wks gestation IOL FHR Category II GBS positive P: Continuous monitoring Pitocin shut off at 2230 -leave off x 1 hr and then resume IOL if appropriate Dr. Norris, emergency spill response technician physician present at the bedside and aware of patient clinical status. Continue IPAP for GBS prophylaxis.
[2020-03-04] MEDS ORDERED: ceFAZolin 2 GM in SODIUM CHLORIDE 0.9% 100ML 100 ML IV ONE (01:50)
[2020-03-04] MEDS: LACTATED RINGERS 1,000 ML IV SCH (01:50)
[2020-03-04] MEDS ORDERED: CITRIC ACID/SODIUM CITRATE 15 ML UDC PO ONE (01:51)
--- NOTE | 2020-03-04 01:55 | PROVIDER PROGRESS NOTE ---
Subjective - Subjective Subjective: Pt with a decel with MVU at 180 that resolved with position change and O2. Pitocin was able to be left on as decel was short. Shortly after that had a 4min decel with diana to 90s resolved with pit off and position change. At this point I recommend as when we approach adequate MVUs her fetus repeatedly becomes intolerant of contractions. SVE has not changed--5/100/-3. Persistently high station is also uncommon for primip at 5cm. Patient is on- board with . Discussed alternative of further attempts for vaginal delivery. reviewed risks including bleeding, infection, trauma to local organs, anesthesia complications, and problems with future pregnancies due to scar on the uterus. Pt without questions. Consent signed. Tracing is currently normal so will proceed as an unscheduled but not-STAT surgery. Objective - Vital Signs/Intake & Output Intake & Output: Intake & Output 03/01/20 03/02/20 03/03/20 03/04/20 23:59 23:59 23:59 23:59 Intake Total 3933.1 766.9 Balance 3933.1 766.9 - Lab Results Fish Bones: 03/02/20 23:45 Other Labs: Lab Results x24hrs 03/02/20 Range/Units 23:45 Blood Type O POSITIVE Antibody Screen NEGATIVE
[2020-03-04] MEDS ORDERED: FAMOTIDINE 20 MG/2 ML VIAL IVP SCH (02:00)
[2020-03-04] MEDS ORDERED: METOCLOPRAMIDE 10 MG/2 ML VIAL IVP SCH (02:00)
[2020-03-04] MEDS ORDERED: KETOROLAC 30 MG/ML VIAL IVP ONE (02:08)
[2020-03-04] MEDS ORDERED: HYDROmorphone 1 MG/ML CARPUJECT IVP ONE (02:08)
[2020-03-04] MEDS ORDERED: fentaNYL 100 MCG/2 ML VIAL IVP ONE (02:08)
[2020-03-04] MEDS ORDERED: SUCCINYLCHOLINE 200 MG/10 ML VIAL IVP ONE (02:08)
[2020-03-04] MEDS ORDERED: DEXAMETHASONE 4 MG/ML VIAL IVP ONE (02:08)
[2020-03-04] MEDS ORDERED: ACETAMINOPHEN 1,000 MG/100 ML 100 ML IV ONE (02:08)
[2020-03-04] MEDS ORDERED: PROPOFOL 200 MG/20 ML VIAL IVP ONE (02:08)
[2020-03-04] MEDS ORDERED: ONDANSETRON 4 MG/2 ML VIAL IVP ONE (02:08)
[2020-03-04] MEDS ORDERED: FAMOTIDINE 20 MG/2 ML VIAL ONE (02:13)
[2020-03-04] MEDS ORDERED: CARBOPROST TROMETHAMINE 250 MCG/ML AMP IM ONE (02:26)
[2020-03-04] MEDS ORDERED: METHYLERGONOVINE 0.2 MG/ML VIAL ONE (02:26)
[2020-03-04] MEDS ORDERED: miSOPROStoL 200 MCG TABLET ONE (02:26)
[2020-03-04] MEDS ORDERED: NALOXONE 0.4 MG/ML VIAL IVP PRN (02:57)
[2020-03-04] MEDS ORDERED: HYDROmorphone 0.5 MG/0.5 ML SYRINGE IVP PRN (02:57)
[2020-03-04] MEDS ORDERED: ONDANSETRON 4 MG/2 ML VIAL IVP PRN (02:57)
[2020-03-04] MEDS ORDERED: fentaNYL 100 MCG/2 ML VIAL IVP PRN (02:57)
[2020-03-04] MEDS ORDERED: ATROPINE ABBOJECT 1 MG/10 ML SYRINGE IVP PRN (02:57)
[2020-03-04] MEDS ORDERED: MORPHINE 2 MG/ML CARPUJECT IVP PRN (02:57)
[2020-03-04] MEDS: KETOROLAC 30 MG/ML VIAL IVP SCH ×4 (03:00→23:09)
[2020-03-04] MEDS ORDERED: LACTATED RINGERS 1,000 ML IV SCH (03:00)
[2020-03-04] MEDS ORDERED: LACTATED RINGERS 1,000 ML IV ONE (03:32)
--- NOTE | 2020-03-04 03:49 | OPERATIVE REPORT ---
Operative Report - General Admit Date: 03/02/20 Procedure Date: 03/04/20 Procedure Performed: Preop: intolerance of labor Postop: same Procedure: primary LTCS Surg: Myrna Assist: none EBL 400cc IVF 1000cc UOP 200cc Complications: none Dispo: PACU Specimens: placenta, cord blood, cord gas Findings: liveborn male, 8, milky fluid, normal maternal anatomy
[2020-03-04] MEDS ORDERED: WITCH HAZEL/GLYCERIN 1 PAD TOP PRN (03:51)
[2020-03-04] MEDS ORDERED: HYDROCORTISONE 1% CREAM 28 GM TUBE PR PRN (03:51)
[2020-03-04] MEDS ORDERED: diphenhydrAMINE 25 MG CAPSULE PO PRN (03:51)
[2020-03-04] MEDS ORDERED: ONDANSETRON ODT 4 MG TABLET TL PRN (03:51)
[2020-03-04] MEDS ORDERED: SIMETHICONE CHEW 80 MG TABLET PO PRN (03:51)
--- NOTE | 2020-03-04 03:51 | ANESTHESIA POST OP EVALUATION ---
Anesthesia Post Eval - Post Anesthesia Eval Vitals: Last Vital Signs Temp 36.6 C 03/04/20 03:45 Pulse 128 H 03/04/20 03:45 Resp 27 H 03/04/20 03:45 BP 141/76 H 03/04/20 03:45 Pulse Ox 100 03/04/20 03:45 CV Function Including HR & BP: positive: Stable Pain Control: positive: Satisfactory Nausea & Vomiting: positive: Negative Mental Status: positive: Baseline Respiratory Status: Airway Patent Hydration Status: Satisfactory Anesthesia Complications: positive: None
[2020-03-04] MEDS ORDERED: OXYTOCIN/SODIUM CHLORIDE 500 ML IV PRN (03:55)
[2020-03-04] MEDS ORDERED: HYDROmorphone 0.5 MG/0.5 ML SYRINGE ONE ×2 (04:06→04:18)
--- NOTE | 2020-03-04 05:49 | OPERATIVE REPORT ---
DATE OF SERVICE: 03/04/2020 Physician: Carlotta Norris MD PREOPERATIVE DIAGNOSES 1. Intrauterine at 41 weeks 0 days. 2. intolerance of labor. POSTOPERATIVE DIAGNOSES 1. Intrauterine at 41 weeks 0 days. 2. intolerance of labor. PROCEDURE PERFORMED: Primary low transverse section. SURGEON: Carlotta Norris MD HOTEL CUSTODIAN: None. ANESTHESIA: Epidural, converted to general prior to the start of surgery. ESTIMATED BLOOD LOSS: 400 mL INTRAVENOUS FLUIDS: 1 liter. URINE OUTPUT: 200 mL, clear. COUNTS: Correct x2. COMPLICATIONS: None apparent. DISPOSITION: Stable to the recovery room. PROPHYLAXIS: SCDs to bilateral lower extremities, 2 grams of Ancef prior to skin incision. SPECIMENS: Cord gases, cord blood, and placenta were all sent. FINDINGS 1. Milky amniotic fluid without odor and without maternal fever. 2. Liveborn male, Apgars 8 at one minute and 9 at five minutes. Venous cord gas pH 7.2 with a base excess of -5. 3. Normal-appearing uterus, ovaries, and fallopian tubes. COUNSELING: The patient had been having intermittent decelerations throughout her hospitalization an d we had discussed the possibility of for quite some time. She got close to an adequate la bor pattern twice; and on both of those situations, she developed prolonged decelerations that requir ed her Pitocin to be turned off. After the second time, we discussed that the baby was not toleratin g adequate contractions and therefore it would be unlikely that she would be able to deliver vaginall y, safely. Initially, the was called as an unscheduled, nonemergent section. How ever, when the team was on their way, the baby did develop persistent tachycardia with a heart rate o f 170s to 180s. At that time, the procedure was expedited. DESCRIPTION OF PROCEDURE: The patient was brought to the operating room, where she was placed in a l eft tilt. Her Escoto catheter had already been placed following her epidural. SCDs were applied. Fe cornel heart rate tracing was performed while preparations were made for surgery. During that time, fet al tachycardia did persist. The patient was prepped with Betadine in order to facilitate a quicker d elivery. She was prepped and draped in the usual sterile fashion. Her skin test revealed that she w as still having sensation after her epidural bolus. We gave it another minute and still she had the same degree of sensation. The decision was made to undergo general anesthesia due to the persistent and worsening category 2 tracing. After induction with general anesthesia, a scalpel was used to make a Pfannenstiel skin incision 3 cm superior to the umbilicus. The fascia was incised with the scalpel. The fascia was extended latera lly, bluntly. The rectus would not easily divide off of the fascia and so Kochers were placed on the inferior margin of the fascial incision and the fascia was sharply dissected off of the underlying r ectus. The Kochers were replaced superiorly and the same was performed. The peritoneum was bluntly entered and a bladder retractor was placed. A scalpel was used to make a transverse incision in the lower uterine segment. The uterine cavity was entered with a finger. The membranes were ruptured an d milky fluid came out. There was no meconium staining. No purulence was noted. There was no foul odor and the patient was not febrile. Therefore, I do not feel like her cloudy fluid was due to chor ioamnionitis. The surgeon's hand was placed in the uterine cavity and the head was elevated. The head was delivered. There was no nuchal cord. The shoulders and body were easily delivered. Th e baby was initially with decent tone and a cry. We left the umbilical cord intact for 20 seconds. At that time, he stopped crying and lost a bit of tone and so the umbilical cord was clamped x2 and c ut and the baby was handed to the poke in in waiting. The placenta was delivered with external uterine massage. Following the evaluation of the baby, resp iratory therapy obtained cord gases, but the arterial gas clotted. Blood was also obtained for cord blood typing and the placenta was sent to pathology. The uterus was externalized and the uterine cav ity was curetted with a dry laparotomy sponge with no return of membranes. The uterine incision was closed with a running layer of 0 Vicryl. A second imbricating layer of 0 Vicryl was performed. Ther e was some small oozers around a few of the stitches, so these were oversewn with [id number] sut ures of 2-0 Vicryl and excellent hemostasis resulted. There were no bleeding issues at the lateral a spects of the incision. The uterus was replaced into the abdominal cavity. Both gutters were irriga prateek. The uterus, ovaries, and fallopian tubes appeared to be normal and the patient was free of any adhesive disease. The uterus fascia and rectus were inspected and no bleeding was identified. The p eritoneum was closed with interrupted [id number] sutures of 2-0 Vicryl. The pyramidalis and rec tus muscles were reapproximated by plicating the aponeurosis of the midline. The fascia was closed w ith a running layer of 0 Vicryl. The subcutaneous tissues were copiously irrigated and then reapprox imated with a running suture of 2-0 Vicryl. A running subcuticular suture of 4-0 Monocryl was then p erformed. Dermabond was applied. The patient did have some mild bleeding around her suture points a nd so the decision was made to place a Prevena wound VAC. Good suction was obtained. Fundal massage yielded a normal amount of blood and clot. The patient was awakened and then taken to the recovery room. TD: 03/04/2020 04:13
[2020-03-04] MEDS: DOCUSATE SODIUM 100 MG CAPSULE PO SCH (09:12)
[2020-03-04] MEDS: oxyCODONE 5 MG TABLET PO PRN ×2 (12:17→20:28)
[2020-03-04 14:02] LABS: BASOPHILS % (AUTO) 0.3 %; HGB - HEMOGLOBIN 10.8 g/dL (12.0-16.0); LYMPHOCYTES % (AUTO) 8.6 %; MEAN CORPUSCULAR HEMOGLOBIN 23.8 pg (27.0-31.0); MEAN CORPUSCULAR HGB CONC 32.2 g/dL (32.0-36.0); MEAN CORPUSCULAR VOLUME 73.8 fL (81.0-99.0); MONOCYTES % (AUTO) 5.1 %; NEUTROPHILS % (AUTO) 84.8 %; PLT - PLATELET COUNT 159 10^3/uL (130-450); RED BLOOD COUNT 4.54 10^6/uL (4.20-5.40); RED CELL DISTRIBUTION WIDTH 14.8 % (12.0-15.0); WHITE BLOOD COUNT 24.9 x10^3/uL (4.8-10.8)
[2020-03-04 14:24] LABS: ABNORMAL LYMPHS % (MANUAL) 0 %
[2020-03-04 14:31] LABS: BAND NEUTROPHILS % (MANUAL) 2 %; LYMPHOCYTES % (MANUAL) 12 %; MONOCYTES # (MANUAL) 0.7 10^3/uL (0.0-1.0); PLATELET ESTIMATE, MANUAL NORMAL (130-450,000) (NORMAL)
[2020-03-04 14:33] LABS: PLATELET MORPHOLOGY 2+ GIANT P (NORMAL)
[2020-03-04 14:34] LABS: DIFFERENTIAL COMMENT MANUAL DIFFERENTIAL; RBC MORPHOLOGY (MULTIPLE) 1+ MICROCYTOSIS (NORMAL)
--- NOTE | 2020-03-04 16:16 | PROVIDER PROGRESS NOTE ---
Subjective - Subjective Subjective: S: eat, breastfeed well. No pain problems or heavy bleeding. Mood is good. O: aVSS except for HR 100-110s. Alert, smiling, NAD Abd soft, nt/nd Fundus firm, NT, 1cm below U Vac in place No LE edema. Hct 33, was 34.6 on admit WBC 24.9 A/P: 29yo P1 POD #0 s/p emergent primary LTCS for NRFS, doing well overall. --Tachycardic currently, HR was 90s on admit and then 70s at rest. Was 100-110 throughout her labor prior to terbutaline. No anemia, no fevers, no tenderness to suggest endomyometritis. But with elevated WBC will watch closely for any developing infection. --OK for OOB, saline lock, and dodge remove. --Pt strongly desires discharge tomorrow. Will eval then. Objective - Vital Signs/Intake & Output Vital Signs: Vital Signs x48h Temp Pulse Resp BP Pulse Ox 03/04/20 11:30 98.2 F 105 H 16 130/67 98 Intake & Output: Intake & Output 03/01/20 03/02/20 03/03/20 03/04/20 23:59 23:59 23:59 23:59 Intake Total 3933.1 2516.9 Output Total 1830 Balance 3933.1 686.9 - Lab Results Fish Bones: 03/04/20 13:53 Other Labs: Lab Results x24hrs 03/04/20 03/04/20 Range/Units 13:53 13:53 WBC 24.9 H (4.8-10.8) x10^3/uL RBC 4.54 (4.20-5.40) 10^6/uL Hgb 10.8 L (12.0-16.0) g/dL Hct 33.5 L (37.0-47.0) % MCV 73.8 L (81.0-99.0) fL MCH 23.8 L (27.0-31.0) pg MCHC 32.2 (32.0-36.0) g/dL RDW 14.8 (12.0-15.0) % Plt Count 159 (130-450) 10^3/uL Neut # (Auto) Not Reportable Lymph # (Auto) Not Reportable [place] # (Auto) Not Reportable Eos # (Auto) Not Reportable Baso # (Auto) Not Reportable Absolute Nucleated RBC Not Reportable Total Counted 100 Band Neuts % (Manual) 2 (0 - 10) % Abnorm Lymph % (Manual) 0 % Nucleated RBC % Not Reportable Neutrophils # (Manual) 21.2 H (1.5-6.6) 10^3/uL Lymphocytes # (Manual) 3.0 (1.5-3.5) 10^3/uL Monocytes # (Manual) 0.7 (0.0-1.0) 10^3/uL Eosinophils # (Manual) 0.0 (0-0.7) 10^3/uL Basophils # (Manual) 0.0 (0-0.1) 10^3/uL Differential Comment MANUAL DIFFERENTIAL Manual Slide Review Indicated WBC Morphology NORMAL APPEARANCE (NORMAL) Platelet Estimate NORMAL (130-450,000) (NORMAL) Platelet Morphology 2+ GIANT P (NORMAL) RBC Morph Micro Appear 1+ MICROCYTOSIS (NORMAL) Blood Type Recheck O POSITIVE
[2020-03-04] MEDS: ACETAMINOPHEN 500 MG TABLET PO SCH ×2 (16:43→23:08)
[2020-03-04] MEDS: SODIUM CHLORIDE FLUSH 0.9% 10 ML SYRINGE IVP PRN ×2 (16:44→23:11)
[2020-03-04] MEDS: SODIUM CHLORIDE FLUSH 0.9% 10 ML SYRINGE IVP SCH ×2 (16:44→23:11)
[2020-03-05] MEDS: oxyCODONE 5 MG TABLET PO PRN ×3 (03:15→16:04)
[2020-03-05] MEDS: ACETAMINOPHEN 500 MG TABLET PO SCH ×3 (04:58→18:23)
[2020-03-05] MEDS: IBUPROFEN 600 MG TABLET PO SCH ×3 (04:59→18:23)
[2020-03-05 10:40] LABS: BASOPHILS # (AUTO) 0.1 10^3/uL (0.0-0.1); BASOPHILS % (AUTO) 0.4 %; EOSINOPHILS # (AUTO) 0.1 10^3/uL (0.0-0.7); EOSINOPHILS % (AUTO) 0.5 %; HGB - HEMOGLOBIN 10.7 g/dL (12.0-16.0); LYMPHOCYTES # (AUTO) 3.5 10^3/uL (1.5-3.5); LYMPHOCYTES % (AUTO) 18.5 %; MEAN CORPUSCULAR HEMOGLOBIN 23.7 pg (27.0-31.0); MEAN CORPUSCULAR HGB CONC 31.5 g/dL (32.0-36.0); MEAN CORPUSCULAR VOLUME 75.2 fL (81.0-99.0); MONOCYTES # (AUTO) 1.2 10^3/uL (0.0-1.0); MONOCYTES % (AUTO) 6.4 %; NEUTROPHILS % (AUTO) 73.5 %; PLT - PLATELET COUNT 174 10^3/uL (130-450); RED BLOOD COUNT 4.52 10^6/uL (4.20-5.40); RED CELL DISTRIBUTION WIDTH 15.3 % (12.0-15.0)
[2020-03-05 11:02] LABS: PLATELET MORPHOLOGY RARE GIANT PLATELETS (NORMAL)
[2020-03-05] MEDS: DOCUSATE SODIUM 100 MG CAPSULE PO SCH ×2 (11:41→21:25)
[2020-03-05] MEDS ORDERED: AMPICILLIN 2 GM in SODIUM CHLORIDE 0.9% MINIBAG 100 ML IV ONE (12:17)
--- NOTE | 2020-03-05 12:42 | PROVIDER PROGRESS NOTE ---
Subjective - Subjective Subjective: S: really wanting to go home. Eat, ambulate, urinate, breastfeed well. Bleeding is scant. Pain is not increasing and overall is well-controlled. Mood is OK. O: AVSS. HR has improved, pt is afebrile. Alert, affect flat, NAD Abd soft, nt/nd except for mild fundal tenderness. No rebound Incison covered by vac Pads without strong odor or pus. WBC 24 --> 19 with left-shift A/P: 29yo P1 POD #1 s/p primary for intolerance of labor. Mild endomyometritis is likely with her fundal tenderness. Her WBC is improving but still quite high, her HR has normalized, and she is afebrile (was 99 a few hours postop) so is trending in the right direction. Doesn't formally meet criteria as she has tenderness but not fever and/or purulent lochia. Given the persistence of the issue beyond 24h, I am opting to give one round of triple antibiotics followed by augmentin. Anticipate that the pt will be OK to go home in am. She is very disappointed but is accepting of the current plan. I anticipate that the patient could demand discharge at some point. Otherwise normal recovery. Objective - Vital Signs/Intake & Output Vital Signs: Vital Signs x48h Temp Pulse Resp BP Pulse Ox 03/05/20 08:00 97.9 F 85 16 120/81 H 97 Intake & Output: Intake & Output 03/02/20 03/03/20 03/04/20 03/05/20 23:59 23:59 23:59 23:59 Intake Total 4033.1 3471.067 Output Total 2430 Balance 4033.1 1041.067 - Lab Results Fish Bones: 03/05/20 10:15 Other Labs: Lab Results x24hrs 03/05/20 03/04/20 03/04/20 Range/Units 10:15 13:53 13:53 WBC 19.0 H 24.9 H (4.8-10.8) x10^3/uL RBC 4.52 4.54 (4.20-5.40) 10^6/uL Hgb 10.7 L 10.8 L (12.0-16.0) g/dL Hct 34.0 L 33.5 L (37.0-47.0) % MCV 75.2 L 73.8 L (81.0-99.0) fL MCH 23.7 L 23.8 L (27.0-31.0) pg MCHC 31.5 L 32.2 (32.0-36.0) g/dL RDW 15.3 H 14.8 (12.0-15.0) % Plt Count 174 159 (130-450) 10^3/uL Neut # (Auto) 14.0 H Not Reportable Lymph # (Auto) 3.5 Not Reportable [place] # (Auto) 1.2 H Not Reportable Eos # (Auto) 0.1 Not Reportable Baso # (Auto) 0.1 Not Reportable Absolute Nucleated RBC 0.00 Not Reportable Total Counted 100 Band Neuts % (Manual) 2 (0 - 10) % Abnorm Lymph % (Manual) 0 % Nucleated RBC % 0.0 Not Reportable Neutrophils # (Manual) 21.2 H (1.5-6.6) 10^3/uL Lymphocytes # (Manual) 3.0 (1.5-3.5) 10^3/uL Monocytes # (Manual) 0.7 (0.0-1.0) 10^3/uL Eosinophils # (Manual) 0.0 (0-0.7) 10^3/uL Basophils # (Manual) 0.0 (0-0.1) 10^3/uL Differential Comment MANUAL DIFFERENTIAL Manual Slide Review Indicated Indicated WBC Morphology NORMAL APPEARANCE (NORMAL) Platelet Estimate NORMAL (130-450,000) (NORMAL) Platelet Morphology RARE GIANT PLATELETS 2+ GIANT P (NORMAL) RBC Morph Micro Appear 1+ MICROCYTOSIS (NORMAL) Blood Type Recheck O POSITIVE
[2020-03-05] MEDS ORDERED: GENTAMICIN PER PHARMACY IV SCH (13:00)
[2020-03-05] MEDS ORDERED: CLINDAMYCIN 600 MG/50 ML 50 ML IV SCH (13:00)
[2020-03-05] MEDS ORDERED: SODIUM CHLORIDE 0.9% IV SCH ×2 (13:00→15:00)
[2020-03-05] MEDS ORDERED: GENTAMICIN IV SCH (15:00)
[2020-03-05] MEDS: AMOX/CLAV 875 MG/125 MG TABLET PO SCH (21:25)
[2020-03-06] MEDS: ACETAMINOPHEN 500 MG TABLET PO SCH ×2 (00:03→06:39)
[2020-03-06] MEDS: IBUPROFEN 600 MG TABLET PO SCH ×2 (00:04→06:39)
[2020-03-06 07:06] LABS: BASOPHILS # (AUTO) 0.1 10^3/uL (0.0-0.1); BASOPHILS % (AUTO) 0.4 %; EOSINOPHILS # (AUTO) 0.2 10^3/uL (0.0-0.7); HGB - HEMOGLOBIN 10.5 g/dL (12.0-16.0); LYMPHOCYTES # (AUTO) 3.4 10^3/uL (1.5-3.5); LYMPHOCYTES % (AUTO) 20.8 %; MEAN CORPUSCULAR HGB CONC 31.4 g/dL (32.0-36.0); MEAN CORPUSCULAR VOLUME 76.3 fL (81.0-99.0); MONOCYTES # (AUTO) 1.1 10^3/uL (0.0-1.0); MONOCYTES % (AUTO) 6.8 %; NEUTROPHILS # (AUTO) 11.4 10^3/uL (1.5-6.6); NEUTROPHILS % (AUTO) 70.2 %; PLT - PLATELET COUNT 191 10^3/uL (130-450); RED BLOOD COUNT 4.38 10^6/uL (4.20-5.40); RED CELL DISTRIBUTION WIDTH 15.1 % (12.0-15.0); WHITE BLOOD COUNT 16.3 x10^3/uL (4.8-10.8)
--- NOTE | 2020-03-06 08:29 | Discharge Plan ---
Discharge Plan Problem Reviewed?: Yes Disposition: Home, Self Care Condition: Good Prescriptions: oxyCODONE [Roxicodone] 5 - 10 mg PO Q4H PRN #20 tablet PRN Reason: Severe Pain Diet: Regular Activity Restrictions: Additional Comments (No lifting more than baby) Shower Restrictions: No Driving Restrictions: Yes (Not while taking oxycodone) No Smoking: If you smoke, Please STOP! Call for help. Follow-up with: Carlotta Norris MD [Provider Admit Priv/Credential] - (Around Mon of next week)
[2020-03-06] MEDS: AMOX/CLAV 875 MG/125 MG TABLET PO SCH (09:11)
[2020-03-06] MEDS: DOCUSATE SODIUM 100 MG CAPSULE PO SCH (09:11)
[2020-03-06 09:29] VITALS: BP 130/79
[2020-03-06] MEDS ORDERED: TETANUS/DIPHTHERIA/PERTUSSIS 0.5 ML SYRINGE IM ONE ×2 (09:45→13:00)
--- NOTE | 2020-03-07 09:35 | DISCHARGE SUMMARY ---
Physician: Carlotta Norris MD DATE OF ADMISSION: 03/02/2020 DATE OF DISCHARGE: 03/06/2020 ADMISSION DIAGNOSES 1. Intrauterine at 40 weeks 5 days. 2. Loss of fluid. 3. Indeterminate heart rate tracing. DISCHARGE DIAGNOSES 1. intolerance of labor. 2. Possible subacute endomyometritis. OPERATIONS AND PROCEDURES: Primary low transverse section for intolerance of labor, 1 05/05/2019. Estimated blood loss was 400 mL. There were no complications. HOSPITAL COURSE: The patient presented with a brief period of decreased movement and loss of f luid that she was worried was her bag of fox. She was found not to be ruptured, but her hea rt rate tracing was indeterminate, and she was post dates, and so she was kept for induction of labor . Induction was initiated with cervical balloon followed by Pitocin. She was group B strep positive and received ampicillin. Pain control was with nitrous and then epidural. Once she became adequate with her contraction pattern, she developed deceleration. The Pitocin was turned off and terb utaline was administered. After this time, the patient persisted in being tachycardic, but there was no tachycardia seen. After resolution of the deceleration, the Pitocin was restarted and the baby was tolerating labor well until the contractions became adequate again, and the fetus had furthe r decelerations. At that time, it was determined that further attempts at vaginal delivery would be futile and primary was recommended. Shortly after this, the fetus developed tachycardia up to the 180s. Variability was maintained and t here were no decelerations during that time. During the period of tachycardia, there was not a ny terbutaline on board. The patient was taken to the operating room for section where her tachycardia persisted. Her epidural was not setting up quickly and the decision was made to co nvert to general because of the persistent category 2 tracing. The was otherwise uneventfu l and the baby was born with 8 and 9 Apgars. There was some milky amniotic fluid seen at the uterine incision, but the patient was afebrile and there was no foul odor. Postoperatively, her heart rate normalized after about 12 hours. She was not anemic. She was strong ly requesting discharge home, but had mild fundal tenderness and her white count was 24. Because of this, she was counseled that discharge was not advised. She did not meet formal criteria for endomyo metritis; but with rest of her clinical picture, including a long period of maternal tachycardia, a p eriod of tachycardia, and the milky amniotic fluid at the time of uterine incision, the decisio n was made to treat her with one dose of triple antibiotics. She got her IV ampicillin, gentamicin a nd clindamycin and immediately felt better than she had in the past. She then got two doses of Augme ntin prior to discharge. She was never febrile and her uterine tenderness resolved. Otherwise by day 2, she was strongly requesting discharge home. She was eating, ambulatin g, urinating, and without difficulties. Her mood was good and her bleeding was scant. She was afebrile with normal vital signs. Alert and smiling, in no apparent distress. Abdomen was s oft, nontender, nondistended. Fundus firm, nontender, and at the umbilicus. The incision was covere d with a wound VAC without surrounding erythema. There was 1+ lower extremity edema. hem atocrit was 33. The patient declined a flu shot, but was accepting of a whooping cough shot. DISCHARGE DISPOSITION: Home. CONDITION: Good. Followup in 1 week at [facility] for an incision check. MEDICATIONS 1. Oxycodone #20, no refills. 2. Ibuprofen. 3. Colace. TD: 03/07/2020 08:39
== END 2020-03-06 11:25 | disposition home or self-care (01) | DRG 787 ==
LOC: WFO 17:36 → FBP 17:55 → WFO 22:40 → FBP 22:41 → OBS 03-04 11:57
PROVIDERS: ADMIT Nurse Practitioner Obstetrics & Gynecology; ATTEND Obstetrics & Gynecology
PROC: 0U7C7ZZ Dilation of Cervix, Via Natural or Artificial Opening (ICD-10-PCS; 2020-03-02)
PROC: 10907ZC Drainage of Amniotic Fluid, Therapeutic from Products of Conception, Via Natural or Artificial Opening (ICD-10-PCS; 2020-03-03)
PROC: 10H07YZ Insertion of Other Device into Products of Conception, Via Natural or Artificial Opening (ICD-10-PCS; 2020-03-03)
PROC: 10D00Z1 Extraction of Products of Conception, Low, Open Approach (ICD-10-PCS; principal; 2020-03-04 02:27)
DX: O76 Abnormality in fetal heart rate and rhythm complicating labor and delivery (principal); N71.0 Acute inflammatory disease of uterus; Z37.0 Single live birth; O48.0 Post-term pregnancy; O77.0 Labor and delivery complicated by meconium in amniotic fluid; O99.824 Streptococcus B carrier state complicating childbirth; O75.89 Other specified complications of labor and delivery; R00.0 Tachycardia, unspecified; Z20.828 Contact with and (suspected) exposure to other viral communicable diseases; Z3A.40 40 weeks gestation of pregnancy
CPT/HCPCS: 36415; 84112; 85025; 86850; 86900; 86901; 87635; 90715; 99214; A9270; J0131; J0330; J1170; J7120; 82803

== ENCOUNTER 2020-03-12 12:36 | Outpatient (CLI) | payer OTHER ==
[2020-03-12 13:20] VITALS: BP 116/63
== END 2020-03-12 13:15 | disposition home or self-care (01) ==
LOC: WFO 12:36 → FBP 12:38 → WFO 13:15
PROVIDERS: ATTEND Obstetrics & Gynecology
DX: Z53.9 Procedure and treatment not carried out, unspecified reason (principal)

== ENCOUNTER 2020-03-30 13:30 | Outpatient (CLI) | payer OTHER ==
[2020-03-30 19:48] LABS: CANDIDA GROUP DNA NEGATIVE (NEGATIVE); CANDIDA KRUSEI DNA NEGATIVE (NEGATIVE); TRICHOMONAS VAGINALIS DNA NEGATIVE (NEGATIVE)
== END 2020-03-30 23:59 | disposition home or self-care (01) ==
LOC: LAB.R 13:30
PROVIDERS: ATTEND Advanced Practice Midwife
DX: N76.0 Acute vaginitis (principal)
CPT/HCPCS: 87661; 87801

== ENCOUNTER 2020-04-11 14:26 | Emergency (ER) | payer OTHER ==
[2020-04-11 14:33] VITALS: BP 118/98
[2020-04-11 14:54] LABS: HCG UR QUAL NEGATIVE
[2020-04-11 14:57] LABS: BILIRUBIN,URINE NEGATIVE (NEGATIVE); CLARITY,URINE HAZY (CLEAR); GLUCOSE, URINE (UA) NEGATIVE (NEGATIVE); KETONES,URINE (UA) NEGATIVE (NEGATIVE); LEUKOCYTE ESTERASE, URINE LARGE (NEGATIVE); NITRITE,URINE POSITIVE (NEGATIVE); OCCULT BLOOD,URINE MODERATE (NEGATIVE); PH,URINE 6.5 PH (5.0-7.5); PROTEIN,URINE 30 mg/dL (NEGATIVE); UROBILINOGEN,URINE 0.2 (NORMAL) E.U./dL (NORMAL)
--- NOTE | 2020-04-11 15:13 | ED Physician Documentation ---
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 She denies any fever nausea or flank pain. She has not had these symptoms previously. She recovered well from her section and has no complaints regarding that. Review of Systems Constitutional: denies: Fever, Chills Eyes: denies: Decreased vision Ears: denies: Ear pain Nose: denies: Congestion Throat: denies: Sore throat Cardiac: denies: Chest pain / pressure Respiratory: denies: Dyspnea, Cough GI: denies: Abdominal Pain, Nausea, Vomiting : reports: Dysuria, Frequency Skin: denies: Rash Musculoskeletal: denies: Neck pain, Back pain, Extremity pain PD PAST MEDICAL HISTORY - Past Medical History Past Medical History: No Cardiovascular: None Respiratory: None Neuro: None Endocrine/Autoimmune: None GI: None : None Musculoskeletal: None Derm: None - Past Surgical 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 - Present Medications Home Medications: Ambulatory Orders Medication Instructions Recorded Confirmed Nitrofurantoin Monohyd/M-Cryst 100 mg PO BID #10 capsule 04/11/20 [Macrobid 100 mg Capsule] - Allergies Allergies/Adverse Reactions: Allergies Allergy/AdvReac Type Severity Reaction Status Date / Time No Known Drug Allergies Allergy Verified 04/11/20 14:29 - Social History Does the pt smoke?: No Smoking Status: Never smoker Does the pt drink ETOH?: No Does the pt have substance abuse?: No - Immunizations Immunizations are current?: Yes - POLST Patient has POLST: No PD ED PE NORMAL - Vitals Vital signs reviewed: Yes (Hypertensive) - General General: Alert and oriented X 3, No acute distress, Well developed/nourished - HEENT HEENT: Atraumatic, PERRL, EOMI - Respiratory Respiratory: No respiratory distress - Back Back: No CVA TTP, No spinal TTP - Derm Derm: Normal color, Warm and dry, No rash - Extremities Extremities: No deformity, No edema - Neuro Neuro: Alert and oriented X 3, 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, No motor deficit, No sensory deficit, Normal speech Eye Opening: Spontaneous Motor: Obeys Commands Verbal: Oriented GCS Score: 15 - Psych Psych: Normal mood, Normal affect Results - Vitals Vitals: Vital Signs - 24 hr 04/11/20 14:31 Temperature 37.0 C Heart Rate 88 Respiratory 18 Rate Blood Pressure 118/98 H O2 Saturation 100 Oxygen O2 Source Room air - Labs Labs: Laboratory Tests 04/11/20 14:35 Urine Color YELLOW Urine Clarity HAZY Urine pH 6.5 Ur Specific [place] 1.020 Urine Protein 30 H Urine Glucose (UA) NEGATIVE Urine Ketones NEGATIVE Urine Occult Blood MODERATE H Urine Nitrite POSITIVE H Urine Bilirubin NEGATIVE Urine Urobilinogen 0.2 (NORMAL) Ur Leukocyte Esterase LARGE H Urine RBC 11-25 H Urine WBC >25 H Ur Squamous Epith Cells NONE SEEN Urine Bacteria Many H Ur Microscopic Review INDICATED Urine Culture Comments INDICATED Urine HCG, Qual NEGATIVE PD MEDICAL DECISION MAKING - ED course Complexity details: reviewed results, re-evaluated patient, considered differential, d/w patient ED course: 29-year-old female with acute urinary tract infection and no evidence of Pylo we will start her on Macrobid Departure - Departure Disposition: 01 Home, Self Care Clinical Impression: Urinary tract infection Qualifiers: Urinary tract infection type: acute cystitis Hematuria presence: with hematuria Qualified Code(s): N30.01 - Acute cystitis with hematuria Instructions: ED UTI Cystitis Female Follow-Up: IDRIS Ewing [Provider Group] Prescriptions: Nitrofurantoin Monohyd/M-Cryst [Macrobid 100 mg Capsule] 100 mg PO BID #10 capsule Discharge Date/Time: 04/11/20 15:15
[2020-04-11 15:27] LABS: BACTERIA,URINE Many /HPF (None Seen); SQUAMOUS EPITHELIAL CELL,UR NONE SEEN (<= Few)
== END 2020-04-11 15:15 | disposition home or self-care (01) ==
LOC: ED 14:26
DX: O86.22 Infection of bladder following delivery (principal)
CPT/HCPCS: 81001; 81003; 81025; 87077; 87086; 87181; 99283

== ENCOUNTER 2020-04-12 08:38 | Emergency (ER) | payer OTHER ==
[2020-04-12 08:46] VITALS: BP 116/67
--- NOTE | 2020-04-12 09:10 | ED Physician Documentation ---
PD HPI BACK PAIN - Stated complaint Stated Complaint: BACK PX - Chief complaint Chief Complaint: UTI - History obtained from History obtained from: Patient - History of Present Illness Timing - onset: Last night Timing - duration: Hours Timing - details: Gradual onset, Now resolved Location: Upper, Mid Quality: Spasm, Sharp Associated symptoms: No: Fever, Weakness, Numbness, Incontinent of urine, Unable to urinate, Hematuria, Incontinent of stool Improves with: Meds Worsened by: Movement Contributing factors: Other (has 5 week old baby with colic) Similar symptoms before: Has not had sx before Recently seen: Emergency Dept - Additional information Additional information: 29-year-old female seen in the emerge department yesterday for urinary tract symptoms has taken 2 doses of Macrobid and feels her symptoms of urination are improved. Last night she developed pain in her upper back and across the bottom part of her chest and she is taken some ibuprofen and pain is now completely resolved. Her insisted she come to the emergency department after she called the nurse hotline. She is 5 weeks had a section and epidural and was well until yesterday when she developed symptoms of urinary tract infection. She does not have any nausea or vomiting she did not have flank pain yesterday and her pain is now resolved. She continues to have no nausea and is afebrile Review of Systems Constitutional: denies: Fever, Chills, Myalgias, Fatigue Eyes: denies: Decreased vision Ears: denies: Ear pain Nose: denies: Congestion Throat: denies: Sore throat Cardiac: denies: Chest pain / pressure Respiratory: denies: Dyspnea, Cough GI: denies: Abdominal Pain, Nausea, Vomiting, Constipation, Diarrhea : denies: Dysuria Skin: denies: Rash Musculoskeletal: reports: Back pain (resolved). 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 - Present Medications Home Medications: Ambulatory Orders Medication Instructions Recorded Confirmed Nitrofurantoin Monohyd/M-Cryst 100 mg PO BID #10 capsule 04/11/20 04/12/20 [Macrobid 100 mg Capsule] - Allergies Allergies/Adverse Reactions: Allergies Allergy/AdvReac Type Severity Reaction Status Date / Time No Known Drug Allergies Allergy Verified 04/12/20 08:46 - Social History Does the pt smoke?: No Smoking Status: Never smoker Does the pt drink ETOH?: No Does the pt have substance abuse?: No - Immunizations Immunizations are current?: Yes - POLST Patient has POLST: No PD ED PE NORMAL - General General: Alert and oriented X 3, No acute distress, Well developed/nourished - HEENT HEENT: Atraumatic, PERRL, EOMI - Neck Neck: Supple, no meningeal sign, No bony TTP - Cardiac Cardiac: RRR, No murmur - Respiratory Respiratory: No respiratory distress, Clear bilaterally - Abdomen Abdomen: Normal bowel sounds, Soft, Non tender, Non distended, No organomegaly - Back Back: No CVA TTP, No spinal TTP - Derm Derm: Normal color, Warm and dry, No rash - Extremities Extremities: No deformity, No edema - Neuro Neuro: Alert and oriented X 3, field installer 2-12 intact, No motor deficit, Normal speech Eye Opening: Spontaneous Motor: Obeys Commands Verbal: Oriented GCS Score: 15 - Psych Psych: Normal mood, Normal affect Results - Vitals Vitals: Vital Signs - 24 hr 04/12/20 08:42 Temperature 36.0 C L Heart Rate 74 Respiratory 16 Rate Blood Pressure 116/67 O2 Saturation 99 Oxygen O2 Source Room air Procedures - IVC sono (time) 0900 Bedside IVC sono: IVC measures (cm) (1.65), Euvolemia PD MEDICAL DECISION MAKING - ED course Complexity details: reviewed results, re-evaluated patient, considered differential, d/w patient ED course: 29-year-old female treated yesterday for urinary tract infection has improvement in her symptoms I do not believe she has pyelonephritis. I was able to examine the patient she does not have CVA tenderness and she does not have tenderness to sonographic palpation of either kidney. Her pain is now resolved and her back and seems very likely a musculoskeletal issue in a young mother who is holding a 5-week-old baby with colic. She has been able to treat this with ibuprofen with satisfactory results. I have encouraged her to hydrate and take rests with baby holding, do stretches and use the ibuprofen as needed. Departure - Departure Disposition: 01 Home, Self Care Clinical Impression: Spasm of back muscles Condition: Stable Instructions: ED Spasm Back No Trauma Follow-Up: IDRIS Ewing [Provider Group]
== END 2020-04-12 09:18 | disposition home or self-care (01) ==
LOC: ED 08:38
DX: O90.89 Other complications of the puerperium, not elsewhere classified (principal); M62.830 Muscle spasm of back
CPT/HCPCS: 99281; 99284

== ENCOUNTER 2020-11-25 08:00 | Outpatient (CLI) | payer OTHER ==
[2020-11-25 21:20] LABS: BACTERIAL VAGINOSIS DNA NEGATIVE (NEGATIVE); CANDIDA GLABRATA DNA NEGATIVE (NEGATIVE); CANDIDA GROUP DNA POSITIVE (NEGATIVE); CANDIDA KRUSEI DNA NEGATIVE (NEGATIVE); TRICHOMONAS VAGINALIS DNA NEGATIVE (NEGATIVE)
[2020-11-25 22:59] LABS: CHLAMYDIA TRACHOMATIS DNA NEGATIVE (NEGATIVE); NEISSERIA GONORRHOEAE DNA NEGATIVE (NEGATIVE); TRICHOMONAS VAGINALIS DNA NEGATIVE (NEGATIVE)
== END 2020-11-25 23:59 | disposition home or self-care (01) ==
LOC: LAB.N 08:00
PROVIDERS: ATTEND Physician Assistant Medical
DX: N76.0 Acute vaginitis (principal)
CPT/HCPCS: 87086; 87491; 87591; 87661; 87801

== ENCOUNTER 2021-09-27 09:46 | Emergency (ER) | payer OTHER ==
[2021-09-27 10:07] LABS: BASOPHILS # (AUTO) 0.1 10^3/uL (0.0-0.1); BASOPHILS % (AUTO) 0.6 %; EOSINOPHILS # (AUTO) 0.2 10^3/uL (0.0-0.7); EOSINOPHILS % (AUTO) 1.8 %; HCT - HEMATOCRIT 35.9 % (37.0-47.0); HGB - HEMOGLOBIN 11.3 g/dL (12.0-16.0); LYMPHOCYTES # (AUTO) 1.8 10^3/uL (1.5-3.5); LYMPHOCYTES % (AUTO) 20.5 %; MEAN CORPUSCULAR HEMOGLOBIN 23.8 pg (27.0-31.0); MEAN CORPUSCULAR HGB CONC 31.5 g/dL (32.0-36.0); MEAN CORPUSCULAR VOLUME 75.6 fL (81.0-99.0); MEAN PLATELET VOLUME 10.3 fL (7.9-10.8); MONOCYTES # (AUTO) 0.5 10^3/uL (0.0-1.0); MONOCYTES % (AUTO) 6.1 %; NEUTROPHILS # (AUTO) 6.3 10^3/uL (1.5-6.6); NEUTROPHILS % (AUTO) 70.8 %; PLT - PLATELET COUNT 342 10^3/uL (130-450); RED BLOOD COUNT 4.75 10^6/uL (4.20-5.40); RED CELL DISTRIBUTION WIDTH 14.9 % (12.0-15.0); WHITE BLOOD COUNT 8.9 x10^3/uL (4.8-10.8)
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
[2021-09-27 10:21] LABS: BILIRUBIN,URINE NEGATIVE (NEGATIVE); CLARITY,URINE CLEAR (CLEAR); GLUCOSE, URINE (UA) NEGATIVE (NEGATIVE); KETONES,URINE (UA) NEGATIVE (NEGATIVE); LEUKOCYTE ESTERASE, URINE NEGATIVE (NEGATIVE); NITRITE,URINE NEGATIVE (NEGATIVE); OCCULT BLOOD,URINE TRACE-INTA (NEGATIVE); PROTEIN,URINE NEGATIVE (NEGATIVE); UROBILINOGEN,URINE 0.2 (NORMAL) E.U./dL (NORMAL)
[2021-09-27 10:29] LABS: ALBUMIN 4.4 g/dL (3.2-5.5); ALBUMIN/GLOBULIN RATIO 1.3 (1.0-2.2); BILIRUBIN,TOTAL 0.2 mg/dL (0.2-1.0); CALCIUM 9.3 mg/dL (8.5-10.3); CREATININE 0.7 mg/dL (0.4-1.0); POTASSIUM 3.6 mmol/L (3.5-5.0); TOTAL PROTEIN 7.7 g/dL (6.7-8.2)
[2021-09-27 13:23] VITALS: BP 139/67
--- NOTE | 2021-09-27 14:00 | Ultrasound Report ---
PROCEDURE: OB First Trimester w/TV INDICATIONS: +preg, vag bleed, cramping OUTSIDE/PRIOR DATING DATA: Last menstrual period (LMP): 07/22/21. LMP-based estimated date of delivery (KISHA): 04/28/22. First dating scan (date and location): 09/27/21. Estimated date of delivery (KISHA) from first dating scan: not applicable TECHNIQUE: Real-time scanning was performed of the fetus and maternal pelvic organs, with image documentation. Endovaginal scanning was also performed to better visualize the fetus and maternal ovaries. COMPARISON: FINDINGS: Intrauterine gestational sac is present measuring 8 mm corresponding to 5 weeks 4 days. It is irregu lar in appearance. No crown rump length is present. No heart tones. Faint, possible yolk sac is pre sent. Maternal organs: Ovaries are unremarkable. IMPRESSION: Irregular gestational sac without visualized crown rump length or heart tones. Given irregular gesta tional sac shape, this could represent a blighted ovum. Recommend correlation with BHCG levels and s hort interval imaging followup to evaluate for progression or blighted ovum. Reviewed by: Hamida London MD on 09/27/2021 1:58 PM PDT Approved by: Hamida London MD on 09/27/2021 1:58 PM PDT Station ID: [id number]
== END 2021-09-27 13:40 | disposition home or self-care (01) ==
LOC: ED 09:46
DX: O03.9 Complete or unspecified spontaneous abortion without complication (principal); Z3A.01 Less than 8 weeks gestation of pregnancy
CPT/HCPCS: 36415; 80053; 81001; 81003; 83690; 84702; 85025; 87086; 99282; 99284

== ENCOUNTER 2021-09-29 12:47 | Outpatient (CLI) | payer OTHER | END 2021-09-29 12:48 | disposition home or self-care (01) | LOC: LAB 12:47 | PROVIDERS: ATTEND Nurse Practitioner Obstetrics & Gynecology | DX: O20.0 Threatened abortion (principal) | CPT/HCPCS: 36415; 84702 ==

== ENCOUNTER 2021-10-12 10:23 | Outpatient (CLI) | payer OTHER | END 2021-10-12 23:59 | disposition home or self-care (01) | LOC: LAB.N 10:23 | PROVIDERS: ATTEND Nurse Practitioner Obstetrics & Gynecology | DX: O20.0 Threatened abortion (principal) | CPT/HCPCS: 36415; 84702 ==

== ENCOUNTER 2021-12-29 15:17 | Outpatient (CLI) | payer OTHER ==
[2021-12-31 19:07] LABS: AFP MOM 0.97 (.); AFP VALUE 48.9 ng/mL (.); DIA MOM 0.74 (.); DIA VALUE 116.33 pg/mL (.); DSR (BY AGE) 1 IN 716 (.); DSR (SECOND TRIMESTER) 1 IN 10000 (.); GESTAT. AGE METHOD EDD (.); HCG MOM 0.46 (.); HCG VALUE 14189 mIU/mL (.); INSULIN DEP DIABETES No (.); MATERNAL AGE AT EDD 29.8 yr (.); OPEN SPINA BIFIDA RISK 1 IN 10000 (.); RACE Black (.); RESULTS Report (.); TEST RESULTS *Screen Negative* (.); TRISOMY 18 RISK Not increased (.); UE3 MOM 1.44 (.); UE3 VALUE 2.16 ng/mL (.); WEIGHT 150 lbs (.)
== END 2021-12-29 15:18 | disposition home or self-care (01) ==
LOC: LAB 15:17
PROVIDERS: ATTEND Nurse Practitioner Obstetrics & Gynecology
DX: Z13.79 Encounter for other screening for genetic and chromosomal anomalies (principal)
CPT/HCPCS: 81511

== ENCOUNTER 2022-01-12 16:03 | Outpatient (CLI) | payer OTHER ==
--- NOTE | 2022-01-13 14:21 | Ultrasound Report ---
PROCEDURE: OB Detailed Eval INDICATIONS: SUPERVISION OF OUTSIDE/PRIOR DATING DATA: Last menstrual period (LMP): 07/22/2021. LMP-based estimated date of delivery (KISHA): 04/28/2022. First dating scan (date and location): 10/14/2021. Estimated date of delivery (KISHA) from first dating scan: 05/26/2022. TECHNIQUE: Real-time scanning was performed of the fetus, with image documentation and biometric measurements. Endovaginal scanning: Not performed today COMPARISON: 10/14/2021 FINDINGS: General: A single living intrauterine gestation is present. Presentation: Vertex Placenta: Placental position is anterior, without previa. Amniotic fluid index: 14.3 cm, heart rate: 157 bpm Maternal cervical canal: 4.5 cm long; normal length is 2.5 cm or more. biometrics: Biparietal diameter: 4.76 cm Head circumference: 18.17 cm Abdominal circumference: 16.1 cm Femur length: 3.35 cm Estimated gestational age from initial scan: 20 weeks and 6 days Composite gestational age from present scan: 20 weeks and 4 days Estimated weight and percentile: EFW is 379 g, at the 42nd percentile. Anatomic survey: Neuro: Ventricles are normal at less than 10 mm. Cisterna magna is normal at 3-11 mm. Cerebellum i s normal in size and morphology. Nuchal skin fold: Normal at less than 6 mm between 14 and 20 weeks gestational age. Face: Nose and lips, facial profile are normal. Spine: No evidence for spina bifida. Heart: 4-chambered heart is present, with normal ventricular outflow tracts. Diaphragm: Diaphragm is intact. Stomach: Left-sided stomach is present. Kidneys: No hydronephrosis. Normal is less than 5 mm in 2nd trimester, less than 7 mm in 3rd trimester. Cord: 3 vessel cord has orthotopic insertion. Bladder: Normal in size. Extremities: All 4 extremities are visualized. IMPRESSION: Living intrauterine gestation at 20 weeks and 6 days by initial ultrasound. Sonographic biometry toda y is concordant. Normal routine anatomic survey. Reviewed by: Nikunj Ro MD on 01/13/2022 2:19 PM PDT Approved by: Nikunj Ro MD on 01/13/2022 2:19 PM PDT Station ID: [id number]
== END 2022-01-12 16:04 | disposition home or self-care (01) ==
LOC: DI 16:03
PROVIDERS: ATTEND Nurse Practitioner Obstetrics & Gynecology
DX: Z34.02 Encounter for supervision of normal first pregnancy, second trimester (principal); Z36.89 Encounter for other specified antenatal screening

== ENCOUNTER 2022-04-15 16:51 | Outpatient (CLI) | payer OTHER ==
[2022-04-15 20:55] LABS: HCT - HEMATOCRIT 33.6 % (37.0-47.0); HGB - HEMOGLOBIN 10.4 g/dL (12.0-16.0); MEAN CORPUSCULAR VOLUME 74.3 fL (81.0-99.0); PLT - PLATELET COUNT 188 10^3/uL (130-450); RED BLOOD COUNT 4.52 10^6/uL (4.20-5.40); RED CELL DISTRIBUTION WIDTH 14.4 % (12.0-15.0); WHITE BLOOD COUNT 10.8 x10^3/uL (4.8-10.8)
== END 2022-04-15 16:52 | disposition home or self-care (01) ==
LOC: LAB.N 16:51
PROVIDERS: ATTEND Nurse Practitioner Obstetrics & Gynecology
DX: O99.013 Anemia complicating pregnancy, third trimester (principal)
CPT/HCPCS: 36415; 85027

== ENCOUNTER 2022-04-28 08:00 | Outpatient (CLI) | payer OTHER | END 2022-04-28 23:59 | disposition home or self-care (01) | LOC: LAB.WC 08:00 | PROVIDERS: ATTEND Obstetrics & Gynecology | DX: Z34.83 Encounter for supervision of other normal pregnancy, third trimester (principal) | CPT/HCPCS: 87797 ==

== ENCOUNTER 2022-05-20 05:21 | Inpatient (IN) | payer OTHER ==
--- OUTSIDE RECORDS SUMMARY | 2022-05-20 05:26 | EXTERNAL MEDICAL SUMMARY RPT | Continuity of Care Document ---
:1990 Author Organization [facility] [facility] Address [address] [place] [address] Phone Care Team Providers Name Role Phone Unavailable Unavailable Unavailable Allergies No information. Encounters No information. Functional Status No information. Immunizations No information. Medications No information. Problems No information. Procedures No information. Results/Labs test date author facility value unit interpret ation Result panel 1 (unknown) (no date) (unknown) All (no value) (units unknown ) (unknown) Result panel 2 (unknown) (no date) (unknown) All (no value) (units unknown ) (unknown) Result panel 3 (unknown) (no date) (unknown) All (no value) (units unknown ) (unknown) Result panel 4 (unknown) (no date) (unknown) All (no value) (units unknown ) (unknown) Result panel 5 (unknown) (no date) (unknown) All (no value) (units unknown ) (unknown) Result panel 6 (unknown) (no date) (unknown) All (no value) (units unknown ) (unknown) Result panel 7 (unknown) (no date) (unknown) All (no value) (units unknown ) (unknown) Result panel 8 (unknown) (no date) (unknown) All (no value) (units unknown ) (unknown) Result panel 9 (unknown) (no date) (unknown) All (no value) (units unknown ) (unknown) Result panel 10 (unknown) (no date) (unknown) All (no value) (units unknown ) (unknown) Result panel 11 (unknown) (no date) (unknown) All (no value) (units unknown ) (unknown) Result panel 12 (unknown) (no date) (unknown) All (no value) (units unknown ) (unknown) Result panel 13 (unknown) (no date) (unknown) All (no value) (units unknown ) (unknown) Result panel 14 (unknown) (no date) (unknown) All (no value) (units unknown ) (unknown) Result panel 15 (unknown) (no date) (unknown) All (no value) (units unknown ) (unknown) Result panel 16 (unknown) (no date) (unknown) All (no value) (units unknown ) (unknown) Result panel 17 (unknown) (no date) (unknown) All (no value) (units unknown ) (unknown) Result panel 18 (unknown) (no date) (unknown) All (no value) (units unknown ) (unknown) Result panel 19 (unknown) (no date) (unknown) All (no value) (units unknown ) (unknown) Result panel 20 (unknown) (no date) (unknown) All (no value) (units unknown ) (unknown) Result panel 21 (unknown) (no date) (unknown) All (no value) (units unknown ) (unknown) Result panel 22 (unknown) (no date) (unknown) All (no value) (units unknown ) (unknown) Result panel 23 (unknown) (no date) (unknown) All (no value) (units unknown ) (unknown) Result panel 24 (unknown) (no date) (unknown) All (no value) (units unknown ) (unknown) Result panel 25 (unknown) (no date) (unknown) All (no value) (units unknown ) (unknown) Result panel 26 (unknown) (no date) (unknown) All (no value) (units unknown ) (unknown) Result panel 27 (unknown) (no date) (unknown) All (no value) (units unknown ) (unknown) Result panel 28 (unknown) (no date) (unknown) All (no value) (units unknown ) (unknown) Result panel 29 (unknown) (no date) (unknown) All (no value) (units unknown ) (unknown) Result panel 30 (unknown) (no date) (unknown) All (no value) (units unknown ) (unknown) Result panel 31 (unknown) (no date) (unknown) All (no value) (units unknown ) (unknown) Result panel 32 (unknown) (no date) (unknown) All (no value) (units unknown ) (unknown) Result panel 33 (unknown) (no date) (unknown) All (no value) (units unknown ) (unknown) Result panel 34 (unknown) (no date) (unknown) All (no value) (units unknown ) (unknown) Result panel 35 (unknown) (no date) (unknown) All (no value) (units unknown ) (unknown) Result panel 36 (unknown) (no date) (unknown) All (no value) (units unknown ) (unknown) Result panel 37 (unknown) (no date) (unknown) All (no value) (units unknown ) (unknown) Result panel 38 (unknown) (no date) (unknown) All (no value) (units unknown ) (unknown) Result panel 39 (unknown) (no date) (unknown) All (no value) (units unknown ) (unknown) Result panel 40 (unknown) (no date) (unknown) All (no value) (units unknown ) (unknown) Result panel 41 (unknown) (no date) (unknown) All (no value) (units unknown ) (unknown) Result panel 42 (unknown) (no date) (unknown) All (no value) (units unknown ) (unknown) Result panel 43 (unknown) (no date) (unknown) All (no value) (units unknown ) (unknown) Result panel 44 (unknown) (no date) (unknown) All (no value) (units unknown ) (unknown) Result panel 45 (unknown) (no date) (unknown) All (no value) (units unknown ) (unknown) Result panel 46 (unknown) (no date) (unknown) All (no value) (units unknown ) (unknown) Result panel 47 (unknown) (no date) (unknown) All (no value) (units unknown ) (unknown) Result panel 48 (unknown) (no date) (unknown) All (no value) (units unknown ) (unknown) Result panel 49 (unknown) (no date) (unknown) All (no value) (units unknown ) (unknown) Result panel 50 (unknown) (no date) (unknown) All (no value) (units unknown ) (unknown) Result panel 51 (unknown) (no date) (unknown) All (no value) (units unknown ) (unknown) Result panel 52 (unknown) (no date) (unknown) All (no value) (units unknown ) (unknown) Result panel 53 (unknown) (no date) (unknown) All (no value) (units unknown ) (unknown) Result panel 54 (unknown) (no date) (unknown) All (no value) (units unknown ) (unknown) Social History No information. Vital Signs No information.
[2022-05-20] MEDS ORDERED: LACTATED RINGERS 1,000 ML IV SCH ×3 (06:00→08:00)
[2022-05-20] MEDS ORDERED: ACETAMINOPHEN 1,000 MG/100 ML 1,000 MG/100 ML BAG IV ONE (06:01)
[2022-05-20] MEDS ORDERED: CELECOXIB 100 MG CAPSULE PO SCH (06:30)
[2022-05-20] MEDS ORDERED: CEFAZOLIN 2G/50ML 0.9% NS 2 GM/50 ML BAG IV ONE ×2 (06:30→07:36)
[2022-05-20] MEDS ORDERED: GABAPENTIN 100 MG CAPSULE PO SCH (06:30)
[2022-05-20] MEDS ORDERED: METHYLERGONOVINE 0.2 MG/ML VIAL ONE (07:15)
[2022-05-20] MEDS ORDERED: CARBOPROST TROMETHAMINE 250 MCG/ML AMP IM ONE (07:15)
[2022-05-20] MEDS ORDERED: miSOPROStoL 200 MCG TABLET ONE (07:15)
[2022-05-20] MEDS ORDERED: OXYTOCIN 10 UNIT/ML VIAL ONE (07:17)
[2022-05-20] MEDS ORDERED: PHENYLEPHRINE 10 MG/ML VIAL ONE (07:18)
[2022-05-20] MEDS ORDERED: fentaNYL 100 MCG/2 ML VIAL ONE (07:20)
[2022-05-20] MEDS ORDERED: MORPHINE PF 5 MG/10 ML VIAL ONE (07:20)
--- NOTE | 2022-05-20 07:24 | HISTORY & PHYSICAL EXAMINATION ---
Admit History - : 2 Parity: 1 Risk/History: positive: Previous Smoking Status: Never smoker - Mother's Labs Mother's Blood Type: positive: O Mother's RH: positive: Positive GBS: positive: Group B Strep Positive Rubella Status: positive: Immune - Other Maternal History Other Maternal History: HPI: 31-year-old -0-0-1 at 39 weeks 1 day gestation here for scheduled repeat section. She has good movement. Denies loss of fluid. No PATE/BV or RUQP. No vaginal bleeding. Denies nausea and vomiting. Denies urinary urgency or dysuria. All other symptoms reviewed and were negative except per HPI. Course Repeat section scheduled 05/20/22 LMP:07/22/2021 KISHA by LMP:04/28/2021 Initial U/S:10/14/2021 @ 8w0d not c/w LMP dating FINAL KISHA:05/26/2022 Previous Low-Transverse Section: Plan on repeat low-transverse section at 39 weeks. Pre- Weight:145 BMI: O pos/Rubella immune VZV:non immune Genetic testing:QUAD- Negative 12/29/21 FAS:01/12/22- WNL 3VC, anterior placenta no previa, EFW 379g 42%ile, ODETTE 14.3cm Glucola 79 GBS Collected 05/02/22 HSV: Denies in self or partner Breast pump Rx MOD: Repeat CS pp contraception: Unsure pap:normal 08/20/2019 Initial GC/CT:negative PMH Anemia PSH Previous low-transverse section OB History -0-0-1 1. 03/04/2020, 41 weeks, male, section, intolerance of labor SH Denies tobacco, alcohol, drugs Family History Father: Hypertension Paternal grandfather: Diabetes Allergies Iodine Medications vitamins Physical exam: General: Alert, oriented, no acute distress Head: Normal cephalic atraumatic Eyes: PERRLA, extraocular motions intact. Respiratory: Normal rate of respiration. No accessory muscle use, normal respiratory effort. Cardiovascular: Regular rate and rhythm Abdomen: Gravid, nontender, nondistended Extremities: Normal range of motion Neuro: Oriented x3. Normal movements Psych: Appropriate mood and affect. Normal judgment and insight FHT: 125 bpm baseline, moderate variability, accelerations present, no decelerations. Reactive NST Aten: Quiescent Plan 31-year-old -0-0-1 at 39 weeks 1 day gestation here for repeat section. 1. Repeat section -Plan for 2 g cefazolin. US medications. 2. 39 weeks gestation 3. GBS positive 4. Previous low-transverse section x1 Meds/Allgy - Allergies Allergies/Adverse Reactions: Allergies Allergy/AdvReac Type Severity Reaction Status Date / Time No Known Drug Allergies Allergy Verified 05/19/22 12:08 Physical - Abdominal Exam Vital Signs: Temp Pulse Resp BP Pulse Ox O2 Flow Rate 98.1 F 102 H 14 117/81 H 100 05/20/22 06:23 05/20/22 06:23 05/20/22 06:23 05/20/22 06:23 05/20/22 05:50 Plan for Labor - Plan For Labor I expect patient to be DC'd or transferred within 96 hours.: Yes
[2022-05-20 07:30] LABS: BASOPHILS # (AUTO) 0.1 10^3/uL (0.0-0.1); BASOPHILS % (AUTO) 0.5 %; EOSINOPHILS # (AUTO) 0.1 10^3/uL (0.0-0.7); EOSINOPHILS % (AUTO) 1.3 %; HCT - HEMATOCRIT 33.1 % (37.0-47.0); HGB - HEMOGLOBIN 10.5 g/dL (12.0-16.0); LYMPHOCYTES % (AUTO) 27.2 %; MEAN CORPUSCULAR HEMOGLOBIN 23.9 pg (27.0-31.0); MEAN CORPUSCULAR HGB CONC 31.7 g/dL (32.0-36.0); MEAN CORPUSCULAR VOLUME 75.4 fL (81.0-99.0); MONOCYTES # (AUTO) 0.7 10^3/uL (0.0-1.0); NEUTROPHILS # (AUTO) 7.1 10^3/uL (1.5-6.6); NEUTROPHILS % (AUTO) 64.4 %; PLT - PLATELET COUNT 172 10^3/uL (130-450); RED BLOOD COUNT 4.39 10^6/uL (4.20-5.40); RED CELL DISTRIBUTION WIDTH 14.9 % (12.0-15.0)
[2022-05-20] MEDS ORDERED: fentaNYL 100 MCG/2 ML VIAL IVP PRN (07:57)
[2022-05-20] MEDS ORDERED: MORPHINE 2 MG/ML CARPUJECT IVP PRN (07:57)
[2022-05-20] MEDS ORDERED: NALOXONE 0.4 MG/ML VIAL IVP PRN ×3 (07:57→16:17)
[2022-05-20] MEDS ORDERED: ATROPINE ABBOJECT 1 MG/10 ML SYRINGE IVP PRN (07:57)
[2022-05-20] MEDS ORDERED: HYDROmorphone 0.5 MG/0.5 ML SYRINGE IVP PRN (07:57)
[2022-05-20] MEDS ORDERED: ONDANSETRON 4 MG/2 ML VIAL IVP PRN ×3 (07:57→16:17)
--- NOTE | 2022-05-20 07:57 | ANESTHESIA ---
Pre-Anesthesia VS, & Labs - Diagnosis previous c/s - Procedure repeat c/s Vital Signs: Temp Pulse Resp BP Pulse Ox O2 Flow Rate 36.7 C 102 H 14 117/81 H 100 05/20/22 06:23 05/20/22 06:23 05/20/22 06:23 05/20/22 06:23 05/20/22 05:50 Height: 5 ft 5 in Weight (kg): 72.575 kg Body Mass Index: 26.6 BMI Classification: Overweight - NPO >8 hours - Is Patient ?: Yes - Lab Results Current Lab Results: Laboratory Tests 05/20/22 06:25: WBC 11.0 H, RBC 4.39, Hgb 10.5 L, Hct 33.1 L, MCV 75.4 L, MCH 23.9 L, MCHC 31.7 L, RDW 14.9, Plt Count 172, Neut # (Auto) 7.1 H, Lymph # (Auto) 3.0, Gila # (Auto) 0.7, Eos # (Auto) 0.1, Baso # (Auto) 0.1, Absolute Nucleated RBC 0.00, Nucleated RBC % 0.0 05/20/22 06:25: Blood Type O POSITIVE Lab results reviewed: Yes Fish Bones: 05/20/22 06:25 Home Medications and Allergies Active Medications Celecoxib (Celecoxib 100 Mg Capsule) 400 mg PO ONCE SHANIA Stop: 05/21/22 06:29 Last Admin: 05/20/22 07:22 Dose: 400 mg Gabapentin (Gabapentin 100 Mg Capsule) 800 mg PO ONCE SHANIA Stop: 05/21/22 06:29 Last Admin: 05/20/22 07:22 Dose: 800 mg Lactated Ringer's (Lr) 1,000 mls @ 100 mls/hr IV .Q10H [facility] Allergies/Adverse Reactions: Allergies Allergy/AdvReac Type Severity Reaction Status Date / Time No Known Drug Allergies Allergy Verified 05/19/22 12:08 Anes History & Medical History - Anesthetic History Anesthesia Complications: reports: No previous complications - Medical History Cardiovascular: reports: None Pulmonary: reports: None Gastrointestinal: reports: None Urinary: reports: None Neuro: reports: None Musculoskeletal: reports: None Endocrine/Autoimmune: reports: None Blood Disorders: reports: None Skin: reports: None Smoking Status: Never smoker Psychosocial: reports: No issues indicated History of Cancer?: No - Surgical History Gynecologic: reports: section - Obstetrical History : 2 Parity: 1 Events: reports: Previous Exam General: Alert, Oriented x3, Cooperative, No acute distress Dental: WNL Mouth Openin Fingerbreadth Neck Mobility: Normal Mallampati classification: II Thyromental Distance: 4-6 cm Mental/Cognitive Status: Alert/Oriented X3, Normal for patient Plan Anesthesia Type: Spinal Consent for Procedure(s) Verified and Reviewed: Yes Code Status: Attempt Resuscitation ASA classification: 2-Mild systemic disease Is this case an emergency?: No
[2022-05-20] MEDS: LACTATED RINGERS 1,000 ML IV SCH ×2 (08:00→14:02)
[2022-05-20] MEDS ORDERED: MORPHINE PF 5 MG/10 ML VIAL IT ONE (08:18)
[2022-05-20] MEDS ORDERED: fentaNYL 100 MCG/2 ML VIAL IT ONE (08:18)
[2022-05-20] MEDS ORDERED: DEXAMETHASONE 4 MG/ML VIAL ONE ×2 (08:31→11:12)
[2022-05-20] MEDS ORDERED: OXYTOCIN/SODIUM CHLORIDE 500 ML IV PRN (09:32)
[2022-05-20] MEDS ORDERED: oxyCODONE 5 MG TABLET PO PRN (09:32)
[2022-05-20] MEDS ORDERED: ONDANSETRON ODT 4 MG TABLET TL PRN (09:32)
[2022-05-20] MEDS ORDERED: SODIUM CHLORIDE FLUSH 0.9% 10 ML SYRINGE IVP PRN (09:32)
--- NOTE | 2022-05-20 09:36 | OPERATIVE REPORT ---
Operative Report - General Admit Date: 05/20/22 Procedure Date: 05/20/22 Planned Procedure: Repeat low transverse section Pre-Op Diagnosis: Previous low transverse section, 39 weeks gestation Procedure Performed: Repeat low transverse section Post Op Diagnosis: Previous low transverse section - Other Other Information/Narrative: section was recommended. Risks, benefits and alternatives were discussed including but not limited to infection, bleeding that may require blood products or hysterectomy for life saving measures, injury to surrounding organs including but not limited to bowel, bladder, ureters, tubes and ovaries and/or the baby. Should injury occur it could require longer/additional surgery to repair. The patient stated understanding and desired to proceed. All questions were answered posed by patient. Prior to being taken to the OR, 2 grams of cefazolin IV was administered. The patient was taken to the operating room where regional anesthesia was found to be adequate. She was then prepared and draped in the usual sterile fashion in the dorsal supine position with a leftward tilt displacing the uterus. Escoto was draining to gravity. SCDs were on bilateral lower extremities. A pfannenstiel skin incision was then made with the scalpel and carried through to the underlying layer of fascia. The fascia was incised in the midline and the incision extended laterally with the Khan scissors. The superior aspect of the facial incision was then grasped with the Gerhard clamps, elevated and the underlying rectus muscles dissected off sharply. There was thick scar tissue attaching the fascia to the muscle which took some time to dissected. Attention was then turned to the inferior aspect of this incision which in a similar fashion was grasped, elevated with the Gerhard clamps and the rectus muscle dissected off sharply. The rectus muscles were in the midline. The peritoneum identified, grasped with the pick-ups and entered sharply with the Metzenbaum scissors. The peritoneal incision was then extended superiorly and inferiorly with good visualization of the bladder. The bladder blade was inserted. The vesicouterine peritoneum was identified, grasped with the pick- ups, and entered sharply with Metzenbaum scissors. This incision was then extended laterally and the bladder flap created digitally. The bladder blade was reinserted. The lower uterine segment was identified and incised in a transverse fashion with the scalpel. The uterine incision was then extended bluntly laterally. Artificial rupture of membranes demonstrated clear fluid. The bladder blade was removed. The fetus was in a cephalic presentation. The infants head delivered atraumatically. The anterior shoulders were delivered followed by the posterior shoulders then the remainder of the body. The infants mouth and nose were bulb suctioned. The umbilical cord was clamped times two and cut. The was handed to the pediatric team. The placenta was removed with gentle traction. Oxytocin were added to IVF and allowed to run freely. The uterus was exteriorized and cleared of all clots and debris. The uterine incision was inspected and found to be without any extensions and was repaired with 0 Vicryl in a running, locked fashion. A second imbricating layer was performed. The lower uterine segment was thin on the inferior portion of the hysterotomy. While time to suture it several small areas tore through and required an additional [id number] stitch. Upon inspection, the repaired hysterotomy was found to be hemostatic. The uterus was firm and returned to the abdomen. The gutters were cleared of all clots and debris. The muscles were reapproximated with 2-0 Vicryl. The fascia was reapproximated with 0 Vicryl in a running fashion. The skin was closed in a subcuticular fashion with 4-0 Monocryl. The patient tolerated the procedure well. Sponge, lap and needle counts were correct times three. The patient was taken to the recovery room in stable condition. I appreciate the assistance of KAYLEIGH Roblero during this procedure, and the assistance in retraction, visualization, dissection, and overall assistance during the case were instrumental to the patient's wellbeing.
[2022-05-20] MEDS ORDERED: NALBUPHINE 10 MG/ML AMP IVP PRN (09:49)
[2022-05-20] MEDS ORDERED: KETOROLAC 30 MG/ML VIAL IVP SCH (10:00)
[2022-05-20] MEDS ORDERED: LACTATED RINGERS 400 ML IV ONE (10:00)
[2022-05-20] MEDS: ACETAMINOPHEN 500 MG TABLET PO SCH ×2 (10:01→18:04)
[2022-05-20] MEDS ORDERED: LACTATED RINGERS 1,000 ML IV ONE (10:15)
[2022-05-20] MEDS ORDERED: ONDANSETRON 4 MG/2 ML VIAL ONE ×2 (11:12→12:05)
[2022-05-20] MEDS ORDERED: METOCLOPRAMIDE 10 MG/2 ML VIAL IVP SCH (11:31)
[2022-05-20] MEDS ORDERED: METOCLOPRAMIDE 10 MG/2 ML VIAL IVP ONE (11:36)
[2022-05-20] MEDS ORDERED: METOCLOPRAMIDE 10 MG/2 ML VIAL IVP PRN ×2 (11:36→16:17)
[2022-05-20] MEDS ORDERED: HYDROmorphone 1 MG/ML CARPUJECT ONE (11:55)
--- NOTE | 2022-05-20 12:52 | ANESTHESIA POST OP EVALUATION ---
Anesthesia Post Eval - Post Anesthesia Eval Vitals: Last Vital Signs Temp 36.4 C L 05/20/22 10:20 Pulse 80 05/20/22 10:20 Resp 18 05/20/22 10:20 BP 92/49 L 05/20/22 10:20 Pulse Ox 97 05/20/22 10:20 O2 Flow Rate CV Function Including HR & BP: Stable Pain Control: Satisfactory Nausea & Vomiting: Negative Mental Status: Baseline Respiratory Status: Airway Patent Hydration Status: Satisfactory Anesthesia Complications: None
[2022-05-20] MEDS ORDERED: SCOPOLAMINE PATCH TOP SCH (13:00)
[2022-05-20] MEDS: KETOROLAC 30 MG/ML VIAL IVP SCH ×2 (16:02→22:05)
[2022-05-20] MEDS ORDERED: diphenhydrAMINE INJ 50 MG/ML VIAL IVP PRN (16:17)
[2022-05-20] MEDS ORDERED: ePHEDrine 50 MG/ML VIAL IVP PRN (16:17)
[2022-05-20] MEDS: SIMETHICONE CHEW 80 MG TABLET PO PRN (17:30)
[2022-05-20] MEDS: DOCUSATE SODIUM 100 MG CAPSULE PO SCH (21:03)
[2022-05-21] MEDS: SODIUM CHLORIDE FLUSH 0.9% 10 ML SYRINGE IVP SCH ×2 (00:02→08:18)
[2022-05-21] MEDS: NALBUPHINE 10 MG/ML AMP IVP PRN ×2 (00:03→05:35)
[2022-05-21] MEDS: KETOROLAC 30 MG/ML VIAL IVP SCH (05:03)
[2022-05-21 06:36] LABS: BASOPHILS % (AUTO) 0.2 %; EOSINOPHILS # (AUTO) 0.1 10^3/uL (0.0-0.7); EOSINOPHILS % (AUTO) 0.5 %; HCT - HEMATOCRIT 33.4 % (37.0-47.0); HGB - HEMOGLOBIN 10.3 g/dL (12.0-16.0); LYMPHOCYTES % (AUTO) 15.6 %; MEAN CORPUSCULAR HEMOGLOBIN 23.1 pg (27.0-31.0); MEAN CORPUSCULAR HGB CONC 30.8 g/dL (32.0-36.0); MEAN CORPUSCULAR VOLUME 74.9 fL (81.0-99.0); NEUTROPHILS # (AUTO) 15.2 10^3/uL (1.5-6.6); NEUTROPHILS % (AUTO) 78.1 %; PLT - PLATELET COUNT 193 10^3/uL (130-450); RED BLOOD COUNT 4.46 10^6/uL (4.20-5.40); RED CELL DISTRIBUTION WIDTH 14.8 % (12.0-15.0); WHITE BLOOD COUNT 19.5 x10^3/uL (4.8-10.8)
[2022-05-21 06:38] LABS: MEAN PLATELET VOLUME 12.9 fL (7.9-10.8)
[2022-05-21] MEDS: ACETAMINOPHEN 500 MG TABLET PO SCH (08:55)
[2022-05-21] MEDS: SIMETHICONE CHEW 80 MG TABLET PO PRN (08:56)
[2022-05-21] MEDS: DOCUSATE SODIUM 100 MG CAPSULE PO SCH (08:56)
--- NOTE | 2022-05-21 12:00 | Discharge Plan ---
Discharge Plan Problem Reviewed?: Yes Disposition: Home, Self Care Condition: Good Diet: Regular Activity Restrictions: Additional Comments Shower Restrictions: No Driving Restrictions: Yes (Take it easy for 2 weeks until pain is better controlled. No driving while) Instruction Topics: C Section Dc No Smoking: If you smoke, Please STOP! Call for help. Follow-up with: Cleve Alvarez MD [Provider Admit Priv/Credential] -
--- NOTE | 2022-05-21 12:04 | DISCHARGE SUMMARY ---
Discharge Summary Admit Date: 05/20/22 Discharge Date: 05/21/22 Discharging Provider: Cleve Alvarez MD Code Status: Attempt Resuscitation Condition at Discharge: Good Discharge Disposition: 01 Home, Self Care - DIAGNOSES Admission Diagnoses: 39 Weeks gestation Previous low transverse section Discharge Diagnoses with Status of Each Condition: 39 weeks gestation: Delivered Previous low-transverse section - HPI History of Present Illness: Subjective Patient reports she is doing well. Lochia appropriate. Denies heavy bleeding. Ambulating. Pelvic and abdominal pain well-controlled. Tolerating oral intake. Diet: Regular. Voiding without difficulty. Passing flatus. Denies BM. Patient is bonding with baby in room Breast feeding going well. Denies feeling lightheaded, dizzy or excessively fatigued. Objective General: Alert, oriented, no apparent distress. Cardiovascular: Regular rate. Regular rhythm. Lungs: No increased work of breathing. Abdomen: Uterus firm. Below umbilicus. No guarding or rebound. Extremities: No pain on palpation. No cords palpated. Distal pulses intact. Incision: Clean, dry, and intact. Bandage removed today. - HOSPITAL COURSE Hospital Course: Patient presented at 39 weeks gestation for a scheduled repeat low-transverse section. Surgery was uncomplicated. She had an uneventful course and desired to go home on day 1. She was counseled on depression, pain control, activity limitations. She has a follow-up with her director intelligence analysis programs in several days and with me next week. - ALLERGIES Allergies/Adverse Reactions: Allergies Allergy/AdvReac Type Severity Reaction Status Date / Time No Known Drug Allergies Allergy Verified 05/19/22 12:08 - MEDICATIONS Home Medications: Ambulatory Orders Medication Instructions Recorded Confirmed Acetaminophen [Acetaminophen Extra 1,000 mg PO Q8H PRN #60 tablet 05/21/22 Strength] Docusate Sodium 100Mg Capsule 100 - 200 mg PO BID PRN #60 cap 05/21/22 [Colace 100Mg Capsule] Ibuprofen [Motrin] 600 mg PO Q6H PRN #30 tab 05/21/22 oxyCODONE [Roxicodone] 2.5 - 5 mg PO Q4H PRN #24 tablet 05/21/22 - LABS Result Diagrams: 05/21/22 06:29 - FOLLOW UP Follow Up: With KAYLEIGH Roblero on Monday and with Cleve Alvarez MD in two weeks. - TIME SPENT Time Spent in Discharge (Minutes): 20
[2022-05-21] MEDS ORDERED: IBUPROFEN 600 MG TABLET PO ONE (12:05)
[2022-05-21 12:07] VITALS: BP 101/48
--- NOTE | 2022-05-21 15:13 | Labor Flowsheet ---
Labor Flowsheet Datetime Report Generated by CPN: 05/21/2022 15:13 Datetime: 05/20/2022 14:19 VAGINAL EXAM Membranes Ruptured Date/Time: 05/20/2022 08:47 Membranes Rupture Method: Spontaneous Amniotic Fluid Color: Clear Amniotic Fluid Amount: Moderate Amniotic Fluid Odor: Normal
[2022-05-21] MEDS ORDERED: IBUPROFEN 600 MG TABLET PO SCH (16:00)
== END 2022-05-21 15:00 | disposition home or self-care (01) | DRG 788 ==
LOC: FBP 05:21
PROVIDERS: ADMIT Obstetrics & Gynecology; ATTEND Obstetrics & Gynecology
PROC: 10D00Z1 Extraction of Products of Conception, Low, Open Approach (ICD-10-PCS; principal; 2022-05-20 07:30)
DX: O34.211 Maternal care for low transverse scar from previous cesarean delivery (principal); N85.8 Other specified noninflammatory disorders of uterus; Z3A.39 39 weeks gestation of pregnancy; Z37.0 Single live birth; O99.824 Streptococcus B carrier state complicating childbirth
CPT/HCPCS: 36415; 85025; 86850; 86900; 86901; A9270; J0131; J0690; J1200; J2274; J2300; J2765; J3490; J7120

== ENCOUNTER 2023-01-02 15:18 | Outpatient (CLI) | payer OTHER ==
[2023-01-02 15:31] LABS: BASOPHILS % (AUTO) 0.4 %; EOSINOPHILS # (AUTO) 0.2 10^3/uL (0.0-0.7); EOSINOPHILS % (AUTO) 1.3 %; HCT - HEMATOCRIT 34.5 % (37.0-47.0); HGB - HEMOGLOBIN 10.8 g/dL (12.0-16.0); LYMPHOCYTES # (AUTO) 2.7 10^3/uL (1.5-3.5); MEAN CORPUSCULAR HEMOGLOBIN 23.5 pg (27.0-31.0); MEAN CORPUSCULAR HGB CONC 31.3 g/dL (32.0-36.0); MEAN PLATELET VOLUME 11.9 fL (7.9-10.8); MONOCYTES # (AUTO) 0.6 10^3/uL (0.0-1.0); MONOCYTES % (AUTO) 5.4 %; NEUTROPHILS # (AUTO) 7.7 10^3/uL (1.5-6.6); NEUTROPHILS % (AUTO) 68.5 %; PLT - PLATELET COUNT 328 10^3/uL (130-450); RED CELL DISTRIBUTION WIDTH 14.5 % (12.0-15.0); WHITE BLOOD COUNT 11.2 x10^3/uL (4.8-10.8)
[2023-01-03 04:08] LABS: HBsAG SCREEN Negative (Negative); HCV AB Non Reactive (Non Reactive); HIV SCREEN 4TH GENERATION Non Reactive (Non Reactive)
[2023-01-03 07:10] LABS: RPR Non Reactive (Non Reactive)
[2023-01-03 08:10] LABS: VARICELLA-ZOSTER AB IGG <135 index (Immune >165)
== END 2023-01-02 15:19 | disposition home or self-care (01) ==
LOC: LAB 15:18
PROVIDERS: ATTEND Nurse Practitioner
DX: Z34.90 Encounter for supervision of normal pregnancy, unspecified, unspecified trimester (principal)
CPT/HCPCS: 36415; 85025; 86592; 86762; 86787; 86803; 86850; 86900; 86901; 87340; 87389

== ENCOUNTER 2023-01-09 16:48 | Outpatient (CLI) | payer OTHER ==
--- NOTE | 2023-01-10 10:43 | Ultrasound Report ---
PROCEDURE: OB 14+ Weeks INDICATIONS: POSITIVE TEST OUTSIDE/PRIOR DATING DATA: Last menstrual period (LMP): Unknown. First dating scan (date and location): 01/09/2023. Estimated date of delivery (KISHA) from first dating scan: 07/02/2023. TECHNIQUE: Real-time scanning was performed of the fetus, with image documentation and biometric measurements. Endovaginal scanning: Not performed. COMPARISON: None from this . FINDINGS: General: A single intrauterine gestation is present. Presentation: Variable Placenta: Placental position is posterior, without previa. Amniotic fluid index: Subjectively normal heart rate: Not documented. Maternal cervical canal: Closed. biometrics: Biparietal diameter: 9.4 cm 15 weeks 2 days Head circumference: 2.9 cm 15 weeks 1 day Abdominal circumference: 11.0 cm 15 weeks 2 days Femur length: 9.0 cm 15 weeks 2 days Composite gestational age from present scan: 15 weeks 1 day Estimated weight and percentile: 111 g, percentile not calculated Measurement variability for biometric dating: +/- 10 days from 12-20 weeks gestation, +/- 2 weeks fro m 20-30 weeks gestation, +/- 3 weeks for 30 weeks gestation or later. IMPRESSION: 1. Single intrauterine with gestational age of 15 weeks 1 day by biometry correspondi ng to an ultrasound KISHA of 07/02/2023. 2. heart rate was not documented during the exam. Per mattress specialist notes, movements were o bserved during the exam. Short interval repeat exam could be performed if clinically indicated. Other urbina, routine second trimester anatomy survey is recommended. Reviewed by: Luis Ramirez MD on 01/10/2023 10:42 AM PDT Approved by: Luis Ramirez MD on 01/10/2023 10:42 AM PDT Station ID: [id number]
== END 2023-01-09 16:49 | disposition home or self-care (01) ==
LOC: DI 16:48
PROVIDERS: ATTEND Nurse Practitioner
DX: Z34.92 Encounter for supervision of normal pregnancy, unspecified, second trimester (principal)

== ENCOUNTER 2023-01-12 08:00 | Outpatient (CLI) | payer OTHER ==
[2023-01-12 21:06] LABS: CHLAMYDIA TRACHOMATIS DNA NEGATIVE (NEGATIVE); NEISSERIA GONORRHOEAE DNA NEGATIVE (NEGATIVE)
[2023-01-12 21:09] LABS: TRICHOMONAS VAGINALIS DNA NEGATIVE (NEGATIVE)
== END 2023-01-12 23:59 | disposition home or self-care (01) ==
LOC: LAB 08:00
PROVIDERS: ATTEND Obstetrics & Gynecology
DX: Z11.3 Encounter for screening for infections with a predominantly sexual mode of transmission (principal)
CPT/HCPCS: 87491; 87591; 87661

== ENCOUNTER 2023-01-27 10:56 | Emergency (ER) | payer OTHER ==
[2023-01-27] MEDS ORDERED: SODIUM CHLORIDE 0.9% 1,000 ML IV STA (11:01)
[2023-01-27] MEDS ORDERED: METOCLOPRAMIDE 10 MG/2 ML VIAL IVP STA ×2 (11:01→13:37)
[2023-01-27] MEDS ORDERED: diphenhydrAMINE INJ 50 MG/ML VIAL IVP STA ×2 (11:01→13:37)
--- NOTE | 2023-01-27 11:13 | ED Physician Documentation ---
PD HPI SYNCOPE - Stated complaint Stated Complaint: SYNCOPE/MIGRAINE - History obtained from History obtained from: Patient - Additional information Additional information: with history of 2 C-sections, the first related to failure to progress and decelerations, the second was scheduled due to the first . She 17 weeks along and developed a sudden onset headache That has been going on for 3 days associated with syncope This morning and did hit her head. Headache is on both sides and radiates towards the eyes. She has no history of migrainesBut did have headaches with prior pregnancies, but nothing consistent with ecl ampsia/preeclampsia.. No nausea currently. She has not felt the baby move in about 2 days which is concerning her and has chronic pelvic pain but no active cramping or bleeding. 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 - Present Medications Home Medications: Ambulatory Orders Medication Instructions Recorded Confirmed Acetaminophen [Acetaminophen Extra 1,000 mg PO Q8H PRN #60 tablet 05/21/22 Strength] Docusate Sodium 100Mg Capsule 100 - 200 mg PO BID PRN #60 cap 05/21/22 [Colace 100Mg Capsule] Ibuprofen [Motrin] 600 mg PO Q6H PRN #30 tab 05/21/22 oxyCODONE [Roxicodone] 2.5 - 5 mg PO Q4H PRN #24 tablet 05/21/22 - Allergies Allergies/Adverse Reactions: Allergies Allergy/AdvReac Type Severity Reaction Status Date / Time iodine Allergy Unknown Verified 01/27/23 11:09 - Social History Does the pt smoke?: No Smoking Status: Never smoker Does the pt drink ETOH?: No Does the pt have substance abuse?: No - Immunizations Immunizations are current?: Yes - POLST Patient has POLST: No PD ED PE NORMAL - Vitals Vital signs reviewed: Yes - General General: Alert and oriented X 3, No acute distress - HEENT HEENT: PERRL, EOMI - Abdomen Abdomen: Normal bowel sounds, Soft, Non tender - Female Female : Other (Bedside ultrasound demonstrating single live intrauterine pr egnancy with heart rate of 160 and positive motion.) - Neuro Neuro: Alert and oriented X 3 (Diagnoses without), slitter operator 2-12 intact, No motor deficit, No sensory deficit, Normal speech Eye Opening: Spontaneous (and can we will just) Motor: Obeys Commands Verbal: Oriented GCS Score: 15 Results - Vitals Vitals: Vital Signs - 24 hr 01/27/23 01/27/23 01/27/23 11:03 12:02 13:03 Temperature 37 C Heart Rate 94 93 86 Respiratory 18 14 14 Rate Blood Pressure 119/73 98/60 101/51 L O2 Saturation 100 100 100 01/27/23 13:45 Temperature Heart Rate 98 Respiratory 14 Rate Blood Pressure 91/60 O2 Saturation 100 Oxygen O2 Source Room air - EKG (time done) 1129 EKG releavant findings:: EKG personally interpreted by author of this note. Relevant findings are: Rate: Rate (enter#) (91) Rhythm: NSR [place]: Normal Intervals: Normal HI QRS: Normal Ischemia: Normal ST segments - Labs Labs: Laboratory Tests 01/27/23 01/27/23 11:10 11:10 WBC 9.6 RBC 4.11 L Hgb 9.8 L Hct 30.1 L MCV 73.2 L MCH 23.8 L MCHC 32.6 RDW 14.4 Plt Count 284 MPV 11.2 H Neut # (Auto) 7.5 H Lymph # (Auto) 1.6 [place] # (Auto) 0.5 Eos # (Auto) 0.0 Baso # (Auto) 0.0 Absolute Nucleated RBC 0.00 Nucleated RBC % 0.0 Sodium 137 Potassium 3.8 Chloride 107 Carbon Dioxide 24 Anion Gap 6.0 BUN 8 Creatinine 0.6 Estimated GFR (MDRD) 142 Glucose 90 Calcium 8.8 Total Bilirubin 0.3 AST 9 L ALT 6 L Alkaline Phosphatase 52 Total Protein 7.0 Albumin 3.8 Globulin 3.2 Albumin/Globulin Ratio 1.2 - Rads (name of study) CT Head Relevant Findings:: Final report received, EMP independent interpretation of test PD Medical Decision Making - ED course Complexity details: reviewed results (CBC showing stable anemia, CMP normal.) ED course: 32-year-old with severe headache in . Also concern for not feeling motion but reassuring bedside ultrasound. Headache was associated with syncope, and given that I think the benefits of CT scanning outweigh the risks to mom and fetus but this was discussed with mom and she was agreeable, Especially given the concern for SAH. She did have headaches with prior though. Headache treated with IV fluids, Benadryl and Reglan IV. She did get relief with this, but required re-dosing later in the stay. CT not showing any acute emergent findings but discussed the bilateral basal ganglia calcifications with her and need for follow-up. We will send an email to her PCP as patient may benefit from MRI and neurology consultation not emergently. Departure - Departure Disposition: 01 Home, Self Care Clinical Impression: 17 weeks gestation of Syncope Qualifiers: Syncope type: unspecified Qualified Code(s): R55 - Syncope and collapse Headache Qualifiers: Headache type: unspecified Headache chronicity pattern: acute headache Intractability: not intractable Qualified Code(s): R51.9 - Headache, unspecified Condition: Good Record reviewed to determine appropriate education?: Yes Instructions: ED Dizziness Syncope Fainting W Pre Follow-Up: Eliecer Galvez MD [Primary Care Provider] - Comments: Your CAT scan did not show any concerning findings as far as something that would require further work-up today, but she did have "mild calcification of the bilateral basal ganglia" and I will email Dr. Galvez as you may benefit from an MRI and neurology consultation in the outpatient setting. Tylenol as needed for the headaches. Return for new or worsening symptoms. Forms: PCP List Discharge Date/Time: 01/27/23 13:46
[2023-01-27 11:17] VITALS: O2SAT 100
[2023-01-27 11:18] LABS: BASOPHILS % (AUTO) 0.2 %; EOSINOPHILS % (AUTO) 0.1 %; HCT - HEMATOCRIT 30.1 % (37.0-47.0); HGB - HEMOGLOBIN 9.8 g/dL (12.0-16.0); LYMPHOCYTES # (AUTO) 1.6 10^3/uL (1.5-3.5); LYMPHOCYTES % (AUTO) 16.1 %; MEAN CORPUSCULAR HEMOGLOBIN 23.8 pg (27.0-31.0); MEAN CORPUSCULAR HGB CONC 32.6 g/dL (32.0-36.0); MEAN CORPUSCULAR VOLUME 73.2 fL (81.0-99.0); MEAN PLATELET VOLUME 11.2 fL (7.9-10.8); MONOCYTES # (AUTO) 0.5 10^3/uL (0.0-1.0); MONOCYTES % (AUTO) 5.3 %; NEUTROPHILS # (AUTO) 7.5 10^3/uL (1.5-6.6); NEUTROPHILS % (AUTO) 77.7 %; PLT - PLATELET COUNT 284 10^3/uL (130-450); RED BLOOD COUNT 4.11 10^6/uL (4.20-5.40); RED CELL DISTRIBUTION WIDTH 14.4 % (12.0-15.0); WHITE BLOOD COUNT 9.6 x10^3/uL (4.8-10.8)
[2023-01-27 11:32] LABS: ALBUMIN 3.8 g/dL (3.2-5.5); ALBUMIN/GLOBULIN RATIO 1.2 (1.0-2.2); BILIRUBIN,TOTAL 0.3 mg/dL (0.2-1.0); CALCIUM 8.8 mg/dL (8.5-10.3); CREATININE 0.6 mg/dL (0.6-1.3); POTASSIUM 3.8 mmol/L (3.5-4.5)
--- NOTE | 2023-01-27 13:22 | CT Report ---
PROCEDURE: HEAD WO INDICATIONS: whol TECHNIQUE: Noncontrast 4.5 mm thick angled axial sections acquired from the foramen magnum to the vertex. For r adiation dose reduction, the following was used: automated exposure control, adjustment of mA and/or kV according to patient size. COMPARISON: None. FINDINGS: Image quality: Excellent. CSF spaces: Basal cisterns are patent. No extra-axial fluid collections. Ventricles are normal in size and shape. 4 Brain: No midline shift. No intracranial masses or hemorrhage. Campbell-white matter interface is norm al. Mild calcification of the bilateral basal ganglia (series 2, image 21) (series 5, image 24). Skull and face: Calvarium and visualized facial bones are intact, without suspicious lesions. Sinuses: Visualized sinuses and mastoids are clear. IMPRESSION: 1.No acute intracranial pathology. Mild calcification of the bilateral basal ganglia. Findings are nonspecific and differential includes metabolic, toxic, infectious and inherited etiologies. Recommend Neurology consultation. Reviewed by: Rashmi Paiz MD on 01/27/2023 1:21 PM PDT Approved by: Rashmi Paiz MD on 01/27/2023 1:21 PM PDT Station ID: [id number]
[2023-01-27 13:46] VITALS: BP 91/60
== END 2023-01-27 13:46 | disposition home or self-care (01) ==
LOC: EDUNIT# → ED 10:56 → SUPCPDRO 10:56 → ED 13:46
DX: O26.892 Other specified pregnancy related conditions, second trimester (principal); Z3A.17 17 weeks gestation of pregnancy; R51.9 Headache, unspecified; R55 Syncope and collapse; O34.219 Maternal care for unspecified type scar from previous cesarean delivery
CPT/HCPCS: 36415; 70450; 80053; 85025; 93005; 96374; 96375; 99284; J1200; J2765

== ENCOUNTER 2023-02-06 15:55 | Outpatient (CLI) | payer OTHER ==
[2023-02-10 19:07] LABS: AFP VALUE 53.7 ng/mL (.); DIA VALUE 107.65 pg/mL (.); GEST. AGE ON COLLECTION DATE 19.1 WEEKS (.); GESTAT. AGE METHOD EDD (.); HCG VALUE 25512 mIU/mL (.); INSULIN DEP DIABETES No (.); MATERNAL AGE AT EDD 30.9 yr (.); MULTIPLE GESTATION No (.); RACE Black (.); UE3 VALUE 1.45 ng/mL (.)
[2023-02-15 07:10] LABS: DIA MOM 0.69 (.); DSR (BY AGE) 1 IN 622 (.); DSR (SECOND TRIMESTER) 1 IN 5493 (.); HCG MOM 0.83 (.); OPEN SPINA BIFIDA RISK 1 IN 10000 (.); TEST RESULTS *Screen Negative* (.); TRISOMY 18 RISK Not increased (.); UE3 MOM 0.82 (.); WEIGHT 161 lbs (.)
== END 2023-02-06 15:56 | disposition home or self-care (01) ==
LOC: LAB.N 15:55
PROVIDERS: ATTEND Obstetrics & Gynecology
DX: Z34.90 Encounter for supervision of normal pregnancy, unspecified, unspecified trimester (principal)
CPT/HCPCS: 36415; 81511; 81599; 83020

== ENCOUNTER 2023-02-24 16:16 | Outpatient (CLI) | payer OTHER ==
--- NOTE | 2023-02-26 23:27 | Ultrasound Report ---
PROCEDURE: OB Detailed Eval INDICATIONS: SUPERVISION OF OUTSIDE/PRIOR DATING DATA: Last menstrual period (LMP): Unknown. LMP-based estimated date of delivery (KISHA): Unknown. First dating scan (date and location): 01/09/2023. Estimated date of delivery (KISHA) from first dating scan: 07/02/2023. The below data below was generated using the ultrasound KISHA of 07/02/2023 TECHNIQUE: Real-time scanning was performed of the fetus, with image documentation and biometric measurements. Endovaginal scanning: Not performed. COMPARISON: OB ultrasound 01/09/2023. FINDINGS: General: A single living intrauterine gestation is present. Presentation: Vertex Placenta: Placental position is posterior, without previa. Amniotic fluid index: 14.6 cm, within normal limits for gestational age. Largest pocket 3.9 cm. heart rate: 158 beats per minute. Maternal cervical canal: 5.2 cm long; normal length is 2.5 cm or more. biometrics: Biparietal diameter: 5.18 cm, 21 weeks 5 days. 48th percentile. Head circumference: 19.64 cm, 21 weeks 2 days. 23rd percentile. Abdominal circumference: 17.71 cm, 21 weeks 4 days. 71st percentile. Femur length: 3.49 cm, 21 weeks 0 days. 18th percentile. Estimated gestational age from initial scan: 21 weeks 5 days Composite gestational age from present scan: 21 weeks 4 days Estimated weight and percentile: 454 g, 50th percentile Measurement variability in biometric dating: +/- 10 days from 12-20 weeks gestation, +/- 2 weeks from 20-30 weeks gestation, +/- 3 weeks at 30 weeks gestation or later. Anatomic survey: Neuro: Ventricles are normal at less than 10 mm. Cisterna magna is normal at 3-11 mm. Cerebellum i s normal in size and morphology. Nuchal skin fold: Normal at less than 6 mm between 14 and 20 weeks gestational age. Face: Nose and lips, facial profile are normal. Spine: No evidence for spina bifida. Heart: 4-chambered heart is present, with normal ventricular outflow tracts. Diaphragm: Diaphragm is intact. Stomach: Left-sided stomach is present. Kidneys: No hydronephrosis. Normal is less than 5 mm in 2nd trimester, less than 7 mm in 3rd trimester. Cord: 3 vessel cord has orthotopic insertion. Bladder: Normal in size. Extremities: All 4 extremities are visualized. Maternal ovaries are within normal limits. Small anechoic right ovarian cyst measuring 1.6 cm. IMPRESSION: 1. Sheikh living intrauterine at 20 weeks 4 days based on today's ultrasound. Fetus is i n the 50th percentile for weight. 2. Normal placenta and amniotic fluid. 3. Normal and complete anatomic survey. Reviewed by: Kieran Castrejon MD on 02/26/2023 11:25 PM PST Approved by: Kieran Castrejon MD on 02/26/2023 11:25 PM PST Station ID: [id number]
== END 2023-02-24 16:17 | disposition home or self-care (01) ==
LOC: DI 16:16
PROVIDERS: ATTEND Obstetrics & Gynecology
DX: Z34.92 Encounter for supervision of normal pregnancy, unspecified, second trimester (principal)

== ENCOUNTER 2023-03-09 08:00 | Outpatient (CLI) | payer OTHER ==
[2023-03-09 17:34] LABS: BILIRUBIN,URINE NEGATIVE (NEGATIVE); GLUCOSE, URINE (UA) NEGATIVE (NEGATIVE); KETONES,URINE (UA) NEGATIVE (NEGATIVE); LEUKOCYTE ESTERASE, URINE NEGATIVE (NEGATIVE); NITRITE,URINE NEGATIVE (NEGATIVE); OCCULT BLOOD,URINE NEGATIVE (NEGATIVE); PH,URINE 7.5 PH (5.0-7.5); PROTEIN,URINE NEGATIVE (NEGATIVE); UROBILINOGEN,URINE 0.2 (NORMAL) E.U./dL (NORMAL)
[2023-03-09 17:42] LABS: CLARITY,URINE CLEAR (CLEAR)
[2023-03-09 18:27] LABS: BACTERIA,URINE None Seen /HPF (None Seen); RBC,URINE 0-5 /HPF (0-5); SQUAMOUS EPITHELIAL CELL,UR RARE Squamous (<= Few); WBC,URINE 0-3 /HPF (0-5)
== END 2023-03-09 23:59 | disposition home or self-care (01) ==
LOC: LAB.WC 08:00
PROVIDERS: ATTEND Obstetrics & Gynecology
DX: M54.9 Dorsalgia, unspecified (principal)
CPT/HCPCS: 81001; 87086

== ENCOUNTER 2023-04-04 09:22 | Outpatient (CLI) | payer OTHER ==
[2023-04-04 10:31] LABS: HCT - HEMATOCRIT 32.2 % (37.0-47.0); HGB - HEMOGLOBIN 10.1 g/dL (12.0-16.0); MEAN CORPUSCULAR HEMOGLOBIN 23.5 pg (27.0-31.0); MEAN CORPUSCULAR HGB CONC 31.4 g/dL (32.0-36.0); MEAN CORPUSCULAR VOLUME 74.9 fL (81.0-99.0); RED BLOOD COUNT 4.3 10^6/uL (4.20-5.40); RED CELL DISTRIBUTION WIDTH 14.5 % (12.0-15.0)
== END 2023-04-04 09:23 | disposition home or self-care (01) ==
LOC: LAB 09:22
PROVIDERS: ATTEND Obstetrics & Gynecology
DX: Z34.90 Encounter for supervision of normal pregnancy, unspecified, unspecified trimester (principal)
CPT/HCPCS: 36415; 82950; 85027

== ENCOUNTER 2023-05-09 15:42 | Outpatient (CLI) | payer OTHER ==
[2023-05-09 17:31] LABS: BASOPHILS % (AUTO) 0.2 %; EOSINOPHILS % (AUTO) 0.4 %; HCT - HEMATOCRIT 32.6 % (37.0-47.0); HGB - HEMOGLOBIN 10.2 g/dL (12.0-16.0); LYMPHOCYTES # (AUTO) 2.1 10^3/uL (1.5-3.5); LYMPHOCYTES % (AUTO) 21.8 %; MEAN CORPUSCULAR HEMOGLOBIN 23.6 pg (27.0-31.0); MEAN CORPUSCULAR HGB CONC 31.3 g/dL (32.0-36.0); MEAN CORPUSCULAR VOLUME 75.3 fL (81.0-99.0); MEAN PLATELET VOLUME 12.8 fL (7.9-10.8); MONOCYTES # (AUTO) 0.7 10^3/uL (0.0-1.0); MONOCYTES % (AUTO) 6.8 %; NEUTROPHILS # (AUTO) 6.8 10^3/uL (1.5-6.6); NEUTROPHILS % (AUTO) 70.4 %; PLT - PLATELET COUNT 227 10^3/uL (130-450); RED BLOOD COUNT 4.33 10^6/uL (4.20-5.40); RED CELL DISTRIBUTION WIDTH 14.6 % (12.0-15.0); WHITE BLOOD COUNT 9.6 x10^3/uL (4.8-10.8)
== END 2023-05-09 15:43 | disposition home or self-care (01) ==
LOC: LAB.N 15:42
PROVIDERS: ATTEND Nurse Practitioner
DX: O99.013 Anemia complicating pregnancy, third trimester (principal)
CPT/HCPCS: 36415; 82728; 85025

== ENCOUNTER 2023-05-12 19:24 | Outpatient (CLI) | payer OTHER ==
--- NOTE | 2023-05-15 11:04 | Ultrasound Report ---
PROCEDURE: OB Follow up INDICATIONS: UTERINE SIZE DATE DISCREPENCY OUTSIDE/PRIOR DATING DATA: Last menstrual period (LMP): Unknown. LMP-based estimated date of delivery (KISHA): Not applicable. First dating scan (date and location): 01/[place]. Estimated date of delivery (KISHA) from first dating scan: 07/02/2023. The below data below was generated using the clinical KISHA of 07/02/2023 TECHNIQUE: Real-time scanning was performed of the fetus, with image documentation and biometric measurements. Endovaginal scanning: Not performed. COMPARISON: OB ultrasound on February 24, 2023 FINDINGS: Technically challenging exam secondary to head positioning. General: A single living intrauterine gestation is present. Presentation: Vertex Placenta: Placental position is posterior, without previa. Amniotic fluid index: 13.8 cm, within normal limits for gestational age. heart rate: 169 beats per minute. Maternal cervical canal: 4.36 cm long; normal length is 2.5 cm or more. biometrics: Biparietal diameter: 7.7 cm, 31 weeks and 0 days, 5.1% Head circumference: 29.2 cm, 32 weeks and 2 days, 7.9% Abdominal circumference: 28.7 cm, 32 weeks and 5 days, 50% Femur length: 5 25 cm, 30 weeks and 4 days, 2.8% Estimated gestational age from initial scan: 32 weeks and 5 days Composite gestational age from present scan: 32 weeks and 5 days Estimated weight and percentile: 1853.7, 17.6% Measurement variability in biometric dating: +/- 10 days from 12-20 weeks gestation, +/- 2 weeks from 20-30 weeks gestation, +/- 3 weeks at 30 weeks gestation or more. Other: Not applicable. IMPRESSION: Technically challenging exam secondary to head positioning. 1.Single living intrauterine gestation in vertex presentation. 2.Interval growth is at the lower limits of normal. Reviewed by: Rashmi Paiz MD on 05/15/2023 11:03 AM PST Approved by: Rashmi Paiz MD on 05/15/2023 11:03 AM PST Station ID: [id number]
== END 2023-05-12 19:25 | disposition home or self-care (01) ==
LOC: DI 19:24
PROVIDERS: ATTEND Obstetrics & Gynecology
DX: O26.843 Uterine size-date discrepancy, third trimester (principal); Z3A.32 32 weeks gestation of pregnancy

== ENCOUNTER 2023-05-23 17:10 | Outpatient (CLI) | payer OTHER ==
[2023-05-23 17:47] VITALS: BP 111/63
--- NOTE | 2023-05-23 18:48 | PROCEDURE REPORT ---
- HPI Current EDU 07/02/23 Gestation 34 Weeks and 2 Days 4 Para 2 Vital Signs Temperature 99.1 F 05/23/23 17:23 Heart Rate 94 05/23/23 17:23 Respiratory Rate 18 05/23/23 17:23 Blood Pressure 111/63 05/23/23 17:23 Temperature 99.1 F 05/23/23 17:23 Heart Rate 94 05/23/23 17:23 Respiratory Rate 18 05/23/23 17:23 Blood Pressure 111/63 05/23/23 17:23 O2 Saturation If not protocol: Oxygen Flow, liters/minute - NST Procedure NST Procedure Start Date 05/23/23 Start Time 17:19 Stop Time 17:50 Vibroacoustic Stimulation Used No Patient States Movement Yes - Results and Plan Plan: Patient is a 32-year-old -0-1-2 at 34 weeks 2 days gestation here for NST. NST Performed 05/23/2023 NST Read 05/23/2023 FHT: 150 bpm baseline, moderate variability, accelerations present, no decelerations. Reactive NST [place]: Quiescent Diagnosis 34 weeks gestation IUGR Continue with scheduled NST.
== END 2023-05-23 18:00 | disposition home or self-care (01) ==
LOC: WFO 17:10 → FBP 17:12 → WFO 18:00
PROVIDERS: ATTEND Obstetrics & Gynecology
DX: O36.5930 Maternal care for other known or suspected poor fetal growth, third trimester, not applicable or unspecified (principal); Z3A.34 34 weeks gestation of pregnancy
CPT/HCPCS: 59025

== ENCOUNTER 2023-05-26 17:57 | Outpatient (CLI) | payer OTHER ==
[2023-05-26 18:31] VITALS: BP 119/62
--- NOTE | 2023-05-27 22:10 | PROCEDURE REPORT ---
- HPI Current EDU 07/02/23 Gestation 34 Weeks and 5 Days 4 Para 2 Vital Signs Temperature 97.9 F 05/26/23 18:13 Heart Rate 87 05/26/23 18:13 Respiratory Rate 17 05/26/23 18:13 Blood Pressure 119/62 05/26/23 18:13 Temperature 97.9 F 05/26/23 18:13 Heart Rate 87 05/26/23 18:13 Respiratory Rate 17 05/26/23 18:13 Blood Pressure 119/62 05/26/23 18:13 O2 Saturation If not protocol: Oxygen Flow, liters/minute - NST Procedure NST Procedure Start Date 05/26/23 Start Time 18:03 Stop Time 18:52 Vibroacoustic Stimulation Used No Patient States Movement Yes - Results and Plan Plan: Patient is a 32-year-old -0-1-2 at 34 weeks 5 days gestation here for NST. NST Performed 05/26/2023 NST Read 05/26/2023 FHT: 145 bpm baseline, moderate variability, accelerations present, no decelerations. Nonreactive NST [place]: Irregular Diagnosis 34 weeks gestation Nonreactive NST IUGR BPP 8/8. Continue with scheduled OB care
== END 2023-05-26 19:40 | disposition home or self-care (01) ==
LOC: WFO 17:57 → FBP 18:00 → WFO 19:40
PROVIDERS: ATTEND Obstetrics & Gynecology
DX: O36.5930 Maternal care for other known or suspected poor fetal growth, third trimester, not applicable or unspecified (principal); Z3A.34 34 weeks gestation of pregnancy
CPT/HCPCS: 59025

== ENCOUNTER 2023-05-26 19:02 | Outpatient (CLI) | payer OTHER ==
--- NOTE | 2023-05-28 15:51 | Ultrasound Report ---
PROCEDURE: OB Biophysical Profile INDICATIONS: IUGR OUTSIDE/PRIOR DATING DATA: Last menstrual period (LMP): Unknown. LMP-based estimated date of delivery (KISHA): Unknown. First dating scan (date and location): 01/09/2023. Estimated date of delivery (KISHA) from first dating scan: 01/09/2023. The below data below was generated using the clinical KISHA of 07/02/2023 TECHNIQUE: Real-time scanning was performed of the fetus, with image documentation and biometric celeste surements. Biophysical profile was also obtained. Endovaginal scanning: Not performed COMPARISON: 05/12/2023, 02/24/2023 FINDINGS: General: A single living intrauterine gestation is present. Presentation: Vertex Placenta: Placental position is stable, without previa. Amniotic fluid index: 19.3 cm, normal for gestational age. heart rate: 166 beats per minute. Maternal cervical canal: Not identified Biophysical profile: Tone: 2 points. Movement: 2 points. Respiration: 2 points. Largest pocket of fluid: 2 points. Umbilical artery Doppler: Normal IMPRESSION: Single intrauterine gestation in vertex position. Normal biophysical profile. Normal umbilical artery cord ratios. Reviewed by: Daiana Browne MD on 05/28/2023 3:50 PM PST Approved by: Daiana Browne MD on 05/28/2023 3:50 PM PST Station ID: [id number]
== END 2023-05-26 19:03 | disposition home or self-care (01) ==
LOC: DI 19:02
PROVIDERS: ATTEND Obstetrics & Gynecology
DX: O36.5990 Maternal care for other known or suspected poor fetal growth, unspecified trimester, not applicable or unspecified (principal); Z3A.00 Weeks of gestation of pregnancy not specified

== ENCOUNTER 2023-05-29 18:42 | Outpatient (CLI) | payer OTHER ==
--- NOTE | 2023-05-30 21:08 | Ultrasound Report ---
PROCEDURE: OB Biophysical Profile INDICATIONS: IUGR OUTSIDE/PRIOR DATING DATA: Last menstrual period (LMP): Unknown. LMP-based estimated date of delivery (KISHA): Unknown. First dating scan (date and location): 01/09/2023. Estimated date of delivery (KISHA) from first dating scan: 07/02/2023. The below data below was generated using the study generated KISHA of 07/02/2023 TECHNIQUE: Real-time scanning was performed of the fetus, with image documentation. Biophysical prof ile was also obtained. Endovaginal scanning: Not performed COMPARISON: 05/26/2023, 05/12/2023, 02/24/2023 FINDINGS: General: A single living intrauterine gestation is present. Presentation: Vertex Placenta: Placental position is posterior, without previa. Amniotic fluid index: 12.4 cm, normal for gestational age. heart rate: 145 beats per minute. Maternal cervical canal: Not evaluated. Estimated gestational age from initial scan: 35 weeks, 1 day. Biophysical profile: Tone: 2 points. Movement: 2 points. Respiration: 2 points. Largest pocket of fluid: 2 points. Umbilical artery Doppler: Within normal limits. IMPRESSION: 1. Single live intrauterine gestation with fetus in vertex presentation. heart rate is 145 bpm. Normal amount of amniotic fluid. 2. biophysical profile score is 8 out of 8. Reviewed by: Yon Elliott MD on 05/30/2023 9:07 PM PST Approved by: Yon Elliott MD on 05/30/2023 9:07 PM PST Station ID: [id number]
--- NOTE | 2023-05-31 14:08 | Ultrasound Report ---
PROCEDURE: Doppler Complete INDICATIONS: BPP WITH CORD DOPPLERS- IUGR TECHNIQUE: Doppler examination of the umbilical cord was performed with image documentation. COMPARISON: 05/26/2023. FINDINGS: Umbilical artery S/D ratio: At placenta, 2.19 At mid portion, 2.97 At abdomen, 3.08 IMPRESSION: Normal umbilical artery S/D ratio. Reviewed by: Yon Cook MD on 05/31/2023 2:06 PM PST Approved by: Yon Cook MD on 05/31/2023 2:06 PM PST Station ID: [id number]
== END 2023-05-29 18:43 | disposition home or self-care (01) ==
LOC: DI 18:42
PROVIDERS: ATTEND Obstetrics & Gynecology
DX: O36.5930 Maternal care for other known or suspected poor fetal growth, third trimester, not applicable or unspecified (principal); Z3A.35 35 weeks gestation of pregnancy
CPT/HCPCS: 93975

== ENCOUNTER 2023-06-01 13:56 | Outpatient (CLI) | payer OTHER ==
[2023-06-01 14:37] VITALS: BP 110/69; O2SAT 97
--- NOTE | 2023-06-01 14:41 | PROCEDURE REPORT ---
- HPI Diagnosis/Indication for NST: Intrauterine growth restriction Vital Signs Temperature 98.1 F 06/01/23 14:24 Heart Rate 98 06/01/23 14:24 Respiratory Rate 16 06/01/23 14:24 Blood Pressure 110/69 06/01/23 14:24 O2 Saturation 97 06/01/23 14:24 Temperature 98.1 F 06/01/23 14:24 Heart Rate 98 06/01/23 14:24 Respiratory Rate 16 06/01/23 14:24 Blood Pressure 110/69 06/01/23 14:24 O2 Saturation 97 06/01/23 14:24 If not protocol: Oxygen Flow, liters/minute - NST Procedure NST Procedure Start Time 17:19 Stop Time 17:50 - Results and Plan Plan: Patient is a 32-year-old -0-1-2 at 35 weeks 4 days gestation here for NST. NST Performed 06/01/2023 NST Read 06/01/2023 FHT: 140 bpm baseline, moderate variability, accelerations present, no decelerations. Reactive NST Diagnosis 35 weeks gestation IUGR Continue with scheduled OB care
== END 2023-06-01 15:00 | disposition home or self-care (01) ==
LOC: WFO 13:56 → FBP 13:59 → WFO 15:00
PROVIDERS: ATTEND Obstetrics & Gynecology
DX: O36.5930 Maternal care for other known or suspected poor fetal growth, third trimester, not applicable or unspecified (principal); O99.013 Anemia complicating pregnancy, third trimester; Z3A.35 35 weeks gestation of pregnancy
CPT/HCPCS: 36415; 59025; 82728; 85025

== ENCOUNTER 2023-06-01 15:07 | Outpatient (CLI) | payer OTHER ==
[2023-06-01 15:22] LABS: BASOPHILS % (AUTO) 0.2 %; EOSINOPHILS % (AUTO) 0.4 %; HCT - HEMATOCRIT 32.5 % (37.0-47.0); HGB - HEMOGLOBIN 10.1 g/dL (12.0-16.0); MEAN CORPUSCULAR HEMOGLOBIN 23.4 pg (27.0-31.0); MEAN CORPUSCULAR HGB CONC 31.1 g/dL (32.0-36.0); MEAN CORPUSCULAR VOLUME 75.2 fL (81.0-99.0); MEAN PLATELET VOLUME 12.7 fL (7.9-10.8); MONOCYTES # (AUTO) 0.6 10^3/uL (0.0-1.0); MONOCYTES % (AUTO) 6.6 %; NEUTROPHILS # (AUTO) 5.9 10^3/uL (1.5-6.6); NEUTROPHILS % (AUTO) 69.2 %; PLT - PLATELET COUNT 180 10^3/uL (130-450); RED BLOOD COUNT 4.32 10^6/uL (4.20-5.40); RED CELL DISTRIBUTION WIDTH 14.6 % (12.0-15.0); WHITE BLOOD COUNT 8.5 x10^3/uL (4.8-10.8)
== END 2023-06-01 15:08 | disposition home or self-care (01) ==
LOC: LAB 15:07
PROVIDERS: ATTEND Nurse Practitioner
DX: O99.013 Anemia complicating pregnancy, third trimester (principal)
CPT/HCPCS: 36415; 82728; 85025

== ENCOUNTER 2023-06-07 17:14 | Observation (INO) | payer OTHER ==
[2023-06-07] MEDS ORDERED: TERBUTALINE 1 MG/ML VIAL SUBQ PRN (18:31)
[2023-06-07] MEDS ORDERED: OXYTOCIN/SODIUM CHLORIDE 500 ML IV SCH (19:00)
[2023-06-07] MEDS: LACTATED RINGERS 500 ML IV ONE (19:15)
[2023-06-07] MEDS ORDERED: ACETAMINOPHEN 325 MG TABLET PO PRN (19:45)
[2023-06-07] MEDS ORDERED: ZOLPIDEM 5 MG TABLET PO PRN (19:45)
[2023-06-07] MEDS ORDERED: ONDANSETRON 4 MG/2 ML VIAL IVP PRN (19:46)
--- NOTE | 2023-06-07 19:55 | HISTORY & PHYSICAL EXAMINATION ---
Admit History - Visit Reason Visit Reason: Other (decel on NST. admit for obs. here for scheduled NST and decel, ? late. no other concerns today.) - Care: positive: [facility] Smoking Status: Never smoker - Other Maternal History Other Maternal History: HPI: 32y/o G-4:P-2 KISHA 07/02/2023 Allergies: Allergies Reviewed: Done IODINE (IODINE) (Moderate) Medications: Meds Reviewed: Done 28-800 mg-mcg tablet ([id number] fumarate-fa) Take 1 tablet by mouth once a day * Electric Breast Pump Use 1 device as directed as directed USE TO EXPRESS MILK ACCORDING TO BABY'S NEEDS Z39.1 KISHA 07/02/2023 Iron (ferrous sulfate) 325 mg (65 mg iron) tablet (ferrous sulfate) 1 tablet by mouth twice a day Problems: Maternal care for other known or suspected poor growth, third trimester, fetus 1 ([id number]-R39.5931) IUGR (ICD-764.90) (LEP71-M76.00) Maternal care for low transverse scar from previous delivery (ICD10- O34.211) Anemia in , third trimester (ICD-648.23) (UXI90-M84.013) Vaccine declined by patient (SAY20-J85.21) Back pain (ICD-724.5) (DEY30-B79.9) Calcification of basal ganglia (ICD-333.0) (LXU92-M46.8) Varicella non-immune (ICD-V49.89) (NMA77-V85.9) Diastasis recti (ICD-728.84) (VYO90-J32.08) Anxiety associated with depression (ICD-300.4) (ZOE62-D82.8) Past Medical History: Anemia Past Surgical History: Primary low-transverse for failure to progress and non-reassuring surveillance Vital Signs: Patient Profile: 32 Years Old Female Height: 65 inches Weight: 169 pounds BMI: 28.22 BP sittin / 68 Cuff size: regular Pt. in pain? no Vitals Entered By: Mery Hummel (June 01, 2023 1:42 PM) Flowsheet View for Follow-up Visit Estimated weeks of gestation: 35 4/7 Weight: 169 Blood pressure: 108 / 68 Fundal height: 35.5 FHR: 137 Vaginal bleeding: no Vaginal discharge: no activity: yes Taking vits? Y Smoking: n/a Next visit: 2 wk Comment: Doing well. Has been uncomfortable but no pain. Has an NST following appointment today. Baby active. Heartburn. Will hold on GBS until next week. REVIEW allergy to IODINE. Feeling more tired. Given previous anemia dx and labs, will order repeat CBC and ferritin. ~KJB LMP: unknown KISHA by LMP: 01/09/2023/15+1 Final KISHA: 07/02/2023 PROBLEMS: 1. close interval - baby 5 1/2 months old at time of conception 2. h/o 2 prior C/S - NRFHT / scheduled RCS for repeat C/S, discussed RBA 3. Anemia Continue iron supplementation. Normal hemoglobin electrophoresis. 4.CALCIFICATIONS OF BASAL GANGLIA - went to ED with severe PATE - did cat scan, found calcifications, referral sent to neuro 02/09. 5. Asymmetrical growth Refer to MFM. Diagnosed 05/12. -EFW 1853 g, 17th percentile. BPD, HC, FL all below 10th percentile. AC 50th percentile. 6. Desires post placental IUD with Kyleena. Moving in September mom in [place] planning to come for . Pre- Weight:161.2 BMI: 26.92 Blood type: O + Antibody: Negative CBC: PLT: 328 HCT: 34.5 HGB: 10.8 RUB: 50 VZV: <135 NON immune-counseled HBsAg: Negative HepC: NR RPR/AB-EIA: NR HIV: NR PAP: Last pap: 08/20/19 DO GC/CT: neg HSV: denies Genetic testin02/06/23 Quad screen- Negative Covid: declined Flu: declined RSV : Declines FAS: 02/24 Placenta: Posterior Cord: 3VC ODETTE: 14.6cm EFW: 454g 71st %tile 50gm OGCT: 88 TDAP: declined Breast Pump: 04/06 3rd trimesterH/H 10.1/32.2 PH 250 GBS: Delivery plan: RCS Contraception: Desires Kyleena post placental placement. Identifies as Female P: 2 T: 2 A: 1 SAB: 1 L: 2 Cesareans: 2 LMP: 08/26/2022 EDC: 07/02/2023 EDC by Ultrasound: 02/29/2020 Height: 65 (05/18/2023 1:36:40 PM) Weight: 169 Gonnorhea: negative (08/20/2019 2:55:51 PM) Chlamydia: NEGATIVE (01/12/2023 11:21:00 AM) Group B: POSITIVE (04/28/2022 9:45:00 AM) US: 20W 2D (10/11/2019 3:02:57 PM) Blood Type: O+ (01/02/2023 3:18:14 PM) RH Type: + (01/02/2023 3:18:14 PM) Last Antibody Screen: negative (01/02/2023 3:18:14 PM) Control Plan(per PISQ): Abstinence Gonnorrhea: negative (08/20/2019 2:55:51 PM) Chlamydia: NEGATIVE (01/12/2023 11:21:00 AM) HIV: negative (08/20/2019 2:55:52 PM) RPR: Non Reactive (01/02/2023 3:25:00 PM) Last Pap: Normal, Satisfactory (08/20/2019 2:39:23 PM) - HPI Diagnosis/Indication for NST: Intrauterine growth restriction Current 4 Para 2 Vital Signs Temperature 98.6 F 06/07/23 18:26 Heart Rate 90 06/07/23 18:26 Respiratory Rate 16 06/07/23 18:26 Blood Pressure 120/79 06/07/23 18:26 Temperature 98.6 F 06/07/23 18:26 Heart Rate 90 06/07/23 18:26 Respiratory Rate 16 06/07/23 18:26 Blood Pressure 120/79 06/07/23 18:26 O2 Saturation If not protocol: Oxygen Flow, liters/minute - NST Procedure NST Procedure Start Date 06/07/23 Start Time 17:24 Stop Time 18:14 Vibroacoustic Stimulation Used No - Results and Plan Findings/Impression: already described. baseline 135 to 140. moderate variability. acels but then also 2 decels at 1734 and about 1745. 2nd maybe a late was doen to 90 for 1 minute. reactive NST but decels. Meds/Allgy - Home Medications Home Medications: Ambulatory Orders Medication Instructions Recorded Confirmed Acetaminophen [Acetaminophen Extra 1,000 mg PO Q8H PRN #60 tablet 05/21/22 Strength] Docusate Sodium 100Mg Capsule 100 - 200 mg PO BID PRN #60 cap 05/21/22 [Colace 100Mg Capsule] Ibuprofen [Motrin] 600 mg PO Q6H PRN #30 tab 05/21/22 oxyCODONE [Roxicodone] 2.5 - 5 mg PO Q4H PRN #24 tablet 05/21/22 - Allergies Allergies/Adverse Reactions: Allergies Allergy/AdvReac Type Severity Reaction Status Date / Time iodine Allergy Unknown Verified 01/27/23 11:09 Review of Systems - Constitutional Constitutional: reports: Fatigue. denies: Fever - Respiratory Respiratory: denies: Cough - Other Findings Other Findings: baby moving well. no headache Physical - Abdominal Exam Vital Signs: Temp Pulse Resp BP Pulse Ox O2 Flow Rate 98.6 F 90 16 120/79 06/07/23 18:26 06/07/23 18:26 06/07/23 18:26 06/07/23 18:26 Contraction Frequency (min/apart): few and irregular. Contraction Intensity: positive: Mild Uterine Resting Tone: positive: Soft - Monitoring Heart Rate Baseline: baseline 135. + acels. moderate variability. o Strip Review: positive: Category I (one decel to 90s lasting 60 seconds. RN in room. seemed to really be baby. maybe after contraction, hard to tell. prior to that a very quick variable.) - Vaginal Exam Membranes: positive: Membranes intact Plan for Labor - Plan For Labor I expect patient to be DC'd or transferred within 96 hours.: Yes Plan for Labor: admit for observation. Initially planned to do contraction stress test but staffing not ok for this will just observe heart overnight and hydrate her with IV fluids. Ultrasound and maybe [employer] in am with better staffing, OR team present. I do not feel comfortable sending her home with that decel.
[2023-06-07 20:54] LABS: BASOPHILS % (AUTO) 0.2 %; EOSINOPHILS # (AUTO) 0.1 10^3/uL (0.0-0.7); EOSINOPHILS % (AUTO) 0.7 %; HCT - HEMATOCRIT 33.7 % (37.0-47.0); HGB - HEMOGLOBIN 10.3 g/dL (12.0-16.0); LYMPHOCYTES # (AUTO) 2.6 10^3/uL (1.5-3.5); LYMPHOCYTES % (AUTO) 30.1 %; MEAN CORPUSCULAR HGB CONC 30.6 g/dL (32.0-36.0); MEAN CORPUSCULAR VOLUME 75.4 fL (81.0-99.0); MONOCYTES # (AUTO) 0.6 10^3/uL (0.0-1.0); NEUTROPHILS # (AUTO) 5.2 10^3/uL (1.5-6.6); NEUTROPHILS % (AUTO) 61.6 %; PLT - PLATELET COUNT 173 10^3/uL (130-450); RED BLOOD COUNT 4.47 10^6/uL (4.20-5.40); RED CELL DISTRIBUTION WIDTH 14.6 % (12.0-15.0); WHITE BLOOD COUNT 8.5 x10^3/uL (4.8-10.8)
--- NOTE | 2023-06-07 21:36 | Ultrasound Report ---
PROCEDURE: OB Follow up INDICATIONS: check growth, fluid, umbilical cord dopplers OUTSIDE/PRIOR DATING DATA: Last menstrual period (LMP): Unknown. LMP-based estimated date of delivery (KISHA): Unknown. First dating scan (date and location): 01/09/2023. Estimated date of delivery (KISHA) from first dating scan: 07/02/2023. The below data below was generated using the working KISHA of 07/02/2023 TECHNIQUE: Real-time scanning was performed of the fetus, with image documentation and biometric measurements. Endovaginal scanning: Not performed. COMPARISON: 05/26/2023, 05/29/2023. FINDINGS: General: A single living intrauterine gestation is present. Presentation: Vertex Placenta: Placental position is posterior, without previa. Amniotic fluid index: 13.3 cm, within normal limits for gestational age. heart rate: 147 beats per minute. Maternal cervical canal: Not investigated. biometrics: Biparietal diameter: 8.5 cm, 34 weeks, 2 days, 8.6% Head circumference: 32.00 cm, 36 weeks, 0 day, 15.1%. Abdominal circumference: 32.47 cm, 36 weeks, 3 days, 60.7% Femur length: 6.73 cm, 34 weeks, 4 days, 8.8% Estimated gestational age from initial scan: 36 weeks, 3 days Composite gestational age from present scan: 35 weeks, 2 days Estimated weight and percentile: 2735.3 g, 32.2% Measurement variability in biometric dating: +/- 10 days from 12-20 weeks gestation, +/- 2 weeks from 20-30 weeks gestation, +/- 3 weeks at 30 weeks gestation or more. Other: Not applicable. IMPRESSION: 1. Single live intrauterine gestation with fetus in vertex presentation. heart rate is 147 bpm. 2. ODETTE equals 13.3 cm and is within normal limits. Estimated weight is at 32.2% Reviewed by: Yon Elliott MD on 06/07/2023 9:35 PM PST Approved by: Yon Elliott MD on 06/07/2023 9:35 PM PST Station ID: [id number]
--- NOTE | 2023-06-07 21:37 | Ultrasound Report ---
PROCEDURE: Doppler Complete INDICATIONS: IUGR, EFW WITH UMB CORD DOPPLERS TECHNIQUE: Duplex exam of the umbilical artery was performed with image documentation. COMPARISON: None. FINDINGS: Umbilical artery S/D ratio measures 2.94, 3.49, and 3.65 @placenta, mid and abdominal insertion respe ctively. IMPRESSION: Mildly elevated umbilical artery S/D ratio at the abdominal insertion as above. Reviewed by: Yon Elliott MD on 06/07/2023 9:36 PM PST Approved by: Yon Elliott MD on 06/07/2023 9:36 PM PST Station ID: [id number]
[2023-06-07 21:59] VITALS: O2SAT 97
[2023-06-07] MEDS: LACTATED RINGERS 1,000 ML IV SCH (22:38)
[2023-06-08 00:34] VITALS: BP 120/79
--- NOTE | 2023-06-09 17:44 | DISCHARGE SUMMARY ---
"Discharge Summary Admit Date: 06/07/23 Discharge Date: 06/08/23 Discharging Provider: Savannah Spaulding MD Code Status: Attempt Resuscitation - DIAGNOSES Admission Diagnoses: decel on heart tracing. at 36 weeks. Discharge Diagnoses with Status of Each Condition: decels on heart monitoring. never recurred. - HPI History of Present Illness: being monitored for small baby, NST reactive but concerning decel. harper admitted for monitoring. - CONSULTS | PROCEDURES Procedures: monitoring of baby, iv hydration. ultrasound. - HOSPITAL COURSE Hospital Course: monitoring done and no further decels. ultrasound done and baby looks well. normal fluid. Dopplers good on initial reading. Discharged home in am after no more decels. continue to monitor as scheduled. - ALLERGIES Allergies/Adverse Reactions: Allergies Allergy/AdvReac Type Severity Reaction Status Date / Time iodine Allergy Unknown Verified 01/27/23 11:09 - MEDICATIONS Home Medications: Ambulatory Orders Medication Instructions Recorded Confirmed Acetaminophen [Acetaminophen Extra 1,000 mg PO Q8H PRN #60 tablet 05/21/22 Strength] Docusate Sodium 100Mg Capsule 100 - 200 mg PO BID PRN #60 cap 05/21/22 [Colace 100Mg Capsule] Ibuprofen [Motrin] 600 mg PO Q6H PRN #30 tab 05/21/22 oxyCODONE [Roxicodone] 2.5 - 5 mg PO Q4H PRN #24 tablet 05/21/22 - PHYSICAL EXAM AT DISCHARGE Physical Exam Other/Comments: nothing concerning. - LABS Result Diagrams: 06/07/23 20:43 - DIAGNOSTIC IMAGING Diagnostic Imaging Results: Prelim report reviewed Diagnostic Imaging Results Comments: images reviewed and appears normal. - FOLLOW UP Follow Up: as scheduled. - TIME SPENT Time Spent in Discharge (Minutes): 30 (discussing findings and options for care. )"
== END 2023-06-08 09:30 | disposition home or self-care (01) ==
LOC: WFO 17:14 → FBP 17:17 → INTOOBSV 18:25 → WFO 18:36
PROVIDERS: ADMIT Obstetrics & Gynecology; ATTEND Obstetrics & Gynecology
DX: O36.8330 Maternal care for abnormalities of the fetal heart rate or rhythm, third trimester, not applicable or unspecified (principal); O99.013 Anemia complicating pregnancy, third trimester; Z3A.36 36 weeks gestation of pregnancy; O99.353 Diseases of the nervous system complicating pregnancy, third trimester; G23.8 Other specified degenerative diseases of basal ganglia; O34.211 Maternal care for low transverse scar from previous cesarean delivery; O36.5930 Maternal care for other known or suspected poor fetal growth, third trimester, not applicable or unspecified
CPT/HCPCS: 59025; 76816; 85025; 86850; 86900; 86901; 93975; G0378; J7120

== ENCOUNTER 2023-06-10 18:07 | Outpatient (CLI) | payer OTHER ==
[2023-06-10 18:25] VITALS: BP 106/68
--- NOTE | 2023-06-10 19:02 | PROCEDURE REPORT ---
- HPI Diagnosis/Indication for NST: Intrauterine growth restriction Vital Signs Temperature 98.2 F 06/10/23 18:16 Heart Rate 97 06/10/23 18:16 Respiratory Rate 18 06/10/23 18:16 Blood Pressure 106/68 06/10/23 18:16 - NST Procedure NST Procedure Start Time 17:24 Stop Time 18:14 - Results and Plan Plan: Patient is a 27-year-old here for NST. NST Performed 06/10/2023 NST Read 06/10/2023 FHT: 150 bpm baseline, moderate variability, accelerations present, no decelerations. Reactive NST [place]: Occasional Diagnosis 37 weeks gestation IUGR Previous low-transverse section -Kick counts and labor cautions given. Feeling contractions, but only at night. During the day does not feel them and can ignore them. Continue with scheduled OB care
== END 2023-06-10 19:08 | disposition home or self-care (01) ==
LOC: WFO 18:07 → FBP 18:10 → WFO 19:08
PROVIDERS: ATTEND Obstetrics & Gynecology
DX: O36.5930 Maternal care for other known or suspected poor fetal growth, third trimester, not applicable or unspecified (principal); O34.211 Maternal care for low transverse scar from previous cesarean delivery; Z3A.00 Weeks of gestation of pregnancy not specified
CPT/HCPCS: 59025

== ENCOUNTER 2023-06-13 16:26 | Outpatient (CLI) | payer OTHER ==
--- NOTE | 2023-06-14 08:59 | Ultrasound Report ---
PROCEDURE: OB Biophysical Profile INDICATIONS: IUGR OUTSIDE/PRIOR DATING DATA: Last menstrual period (LMP): Unknown. First dating scan (date and location): 01/09/2023. [place]. Estimated date of delivery (KISHA) from first dating scan: 07/02/2023. The below data below was generated using the ultrasound KISHA of 07/02/2023 TECHNIQUE: Real-time scanning was performed of the fetus, with image documentation and biometric celeste surements. Biophysical profile was also obtained. Endovaginal scanning: No COMPARISON: OB ultrasound on June 07, 2023 FINDINGS: General: A single living intrauterine gestation is present. Presentation: Vertex Placenta: Placental position is posterior, without previa. Amniotic fluid index: 11.2 cm, within normal limits for gestational age. heart rate: 160 beats per minute. Maternal cervical canal: Not imaged. Composite gestational age from present scan: 37 weeks and 2 days Biophysical profile: Tone: 2 points. Movement: 2 points. Respiration: 2 points. Largest pocket of fluid: 8 out of 8 points. IMPRESSION: 1.Single living intrauterine gestation in vertex presentation. heart rate is 160 BPM. 2.ODETTE is 11.2 cm and is within normal limits. 3.Biophysical profile is 8 out of 8. Reviewed by: Rashmi Paiz MD on 06/14/2023 8:57 AM PDT Approved by: Rashmi Paiz MD on 06/14/2023 8:57 AM PDT Station ID: [id number]
--- NOTE | 2023-06-14 11:47 | Ultrasound Report ---
PROCEDURE: Doppler Complete INDICATIONS: IUGR TECHNIQUE: Doppler examination of the umbilical cord was performed with image documentation. COMPARISON: Doppler ultrasound on June 07, 2023. FINDINGS: Umbilical artery S/D ratio: At placenta, 2.7 At mid portion, 2.87 At abdomen, 3.2. There was a brief variable heartrate at the level of the abdomen while the recording the umbilical artery waveform. This subsequently normalized. Remainder of the umbilical artery wavef orms are normal. IMPRESSION: 1.Single living intrauterine gestation with gestational age of 37 weeks and 2 days. S/D ratio is with in normal limits. 2.There was a brief variable heartrate at the level of the abdomen while the recording the umbilical artery waveform. This subsequently normalized. Reviewed by: Rashmi Paiz MD on 06/14/2023 11:46 AM PDT Approved by: Rashmi Paiz MD on 06/14/2023 11:46 AM PDT Station ID: [id number]
== END 2023-06-13 16:27 | disposition home or self-care (01) ==
LOC: DI 16:26
PROVIDERS: ATTEND Obstetrics & Gynecology
DX: O36.5930 Maternal care for other known or suspected poor fetal growth, third trimester, not applicable or unspecified (principal); Z3A.37 37 weeks gestation of pregnancy
CPT/HCPCS: 93975

== ENCOUNTER 2023-06-13 16:29 | Outpatient (CLI) | payer OTHER ==
[2023-06-13 16:50] VITALS: BP 103/58
--- NOTE | 2023-06-13 17:40 | PROCEDURE REPORT ---
- HPI Diagnosis/Indication for NST: Intrauterine growth restriction Vital Signs Temperature 98.1 F 06/13/23 16:43 Heart Rate 104 H 06/13/23 16:43 Respiratory Rate 16 06/13/23 16:43 Blood Pressure 103/58 L 06/13/23 16:43 Temperature 98.1 F 06/13/23 16:43 Heart Rate 104 H 06/13/23 16:43 Respiratory Rate 16 06/13/23 16:43 Blood Pressure 103/58 L 06/13/23 16:43 O2 Saturation If not protocol: Oxygen Flow, liters/minute - NST Procedure NST Procedure Start Time 18:18 Stop Time 18:57 - Results and Plan Findings/Impression: Reactive for of 32 weeks gestation or more. NST tracing contains at least two heart rate accelerations that are at least 15 beats per minute above the baseline rate and lasting at least 15 seconds from onset to return to baseline within a twenty minute period. reactive nst. Plan: care as scheduled. on her way to ultrasound now.
== END 2023-06-13 17:15 | disposition home or self-care (01) ==
LOC: WFO 16:29 → FBP 16:31 → WFO 17:15
PROVIDERS: ATTEND Obstetrics & Gynecology
DX: O36.5930 Maternal care for other known or suspected poor fetal growth, third trimester, not applicable or unspecified (principal); Z3A.37 37 weeks gestation of pregnancy
CPT/HCPCS: 59025; 93975

== ENCOUNTER 2023-06-16 08:00 | Outpatient (CLI) | payer OTHER | END 2023-06-16 23:59 | disposition home or self-care (01) | LOC: LAB.WC 08:00 | PROVIDERS: ATTEND Nurse Practitioner | DX: Z36.85 Encounter for antenatal screening for Streptococcus B (principal) | CPT/HCPCS: 87081; 87181; 87797 ==

== ENCOUNTER 2023-06-17 18:04 | Outpatient (CLI) | payer OTHER ==
[2023-06-17 18:18] VITALS: BP 116/71
--- NOTE | 2023-06-17 21:27 | PROCEDURE REPORT ---
- HPI Diagnosis/Indication for NST: Intrauterine growth restriction Vital Signs Temperature 98.6 F 06/17/23 18:13 Heart Rate 105 H 06/17/23 18:13 Respiratory Rate 17 06/17/23 18:13 Blood Pressure 116/71 06/17/23 18:13 Temperature 98.6 F 06/17/23 18:13 Heart Rate 105 H 06/17/23 18:13 Respiratory Rate 17 06/17/23 18:13 Blood Pressure 116/71 06/17/23 18:13 O2 Saturation If not protocol: Oxygen Flow, liters/minute - NST Procedure NST Procedure Start Time 16:38 Stop Time 17:12 - Results and Plan Findings/Impression: Reactive for of 32 weeks gestation or more. NST tracing contains at least two heart rate accelerations that are at least 15 beats per minute above the baseline rate and lasting at least 15 seconds from onset to return to baseline within a twenty minute period. Initially the RN called and said tracing was not reactive. BPP was ordered. 11/08. dopplers ok. was having contractions last night, better today. 37w6d. 2 prior c sections. does not seem to be in labor. well being reassuring. Plan: care as scheduled. next NST on Monday. return if contractions get worse.
--- NOTE | 2023-06-17 21:31 | Ultrasound Report ---
PROCEDURE: OB Biophysical Profile INDICATIONS: IUGR OUTSIDE/PRIOR DATING DATA: Last menstrual period (LMP): Not available. LMP-based estimated date of delivery (KISHA): Not available. First dating scan (date and location): 06/13/2023. Estimated date of delivery (KISHA) from first dating scan: 07/02/2023. TECHNIQUE: Real-time scanning was performed of the fetus, with image documentation and biometric celeste surements. Biophysical profile was also obtained. Endovaginal scanning: Not needed COMPARISON: Recent prior OB ultrasound 06/13/2023 FINDINGS: General: A single living intrauterine gestation is present. Presentation: Vertex Placenta: Placental position is posterior, without previa. Amniotic fluid index: 14.0 cm, normal for gestational age. heart rate: 147 beats per minute. Maternal cervical canal: 2.9 cm long; normal length is 2.5 cm or more. Biophysical profile: Tone: 2 points. Movement: 2 points. Respiration: 2 points. Largest pocket of fluid: 2 points. IMPRESSION: Normal biophysical profile. Reviewed by: Franklyn Wright MD on 06/17/2023 9:30 PM PDT Approved by: Franklyn Wright MD on 06/17/2023 9:30 PM PDT Station ID: [id number]
--- NOTE | 2023-06-20 20:54 | PROCEDURE REPORT ---
- HPI Diagnosis/Indication for NST: Intrauterine growth restriction Current EDU 07/02/23 Gestation 37 Weeks and 6 Days 4 Para 2 Vital Signs Temperature 98.6 F 06/17/23 18:13 Heart Rate 105 H 06/17/23 18:13 Respiratory Rate 17 06/17/23 18:13 Blood Pressure 116/71 06/17/23 18:13 Temperature 98.6 F 06/17/23 18:13 Heart Rate 105 H 06/17/23 18:13 Respiratory Rate 17 06/17/23 18:13 Blood Pressure 116/71 06/17/23 18:13 O2 Saturation If not protocol: Oxygen Flow, liters/minute - NST Procedure NST Procedure Start Date 06/17/23 Start Time 19:24 Stop Time 19:55 Vibroacoustic Stimulation Used No Patient States Movement Yes - Results and Plan Findings/Impression: Reactive for of 32 weeks gestation or more. NST tracing contains at least two heart rate accelerations that are at least 15 beats per minute above the baseline rate and lasting at least 15 seconds from onset to return to baseline within a twenty minute period. Plan: care as scheduled
== END 2023-06-17 20:45 | disposition home or self-care (01) ==
LOC: WFO 18:04 → FBP 18:07 → WFO 20:45
PROVIDERS: ATTEND Obstetrics & Gynecology
DX: O36.5930 Maternal care for other known or suspected poor fetal growth, third trimester, not applicable or unspecified (principal); Z3A.37 37 weeks gestation of pregnancy
CPT/HCPCS: 59025; 99215

== ENCOUNTER 2023-06-20 18:23 | Outpatient (CLI) | payer OTHER ==
[2023-06-20 19:25] VITALS: BP 112/63
--- NOTE | 2023-06-20 20:50 | PROCEDURE REPORT ---
- HPI Diagnosis/Indication for NST: Intrauterine growth restriction (although now better.) Vital Signs Temperature 98.1 F 06/20/23 19:00 Heart Rate 95 06/20/23 19:00 Respiratory Rate 16 06/20/23 19:00 Blood Pressure 112/63 06/20/23 19:00 Temperature 98.1 F 06/20/23 19:00 Heart Rate 95 06/20/23 19:00 Respiratory Rate 16 06/20/23 19:00 Blood Pressure 112/63 06/20/23 19:00 O2 Saturation If not protocol: Oxygen Flow, liters/minute - NST Procedure NST Procedure Start Time 19:24 Stop Time 19:55 - Results and Plan Findings/Impression: Reactive for of 32 weeks gestation or more. NST tracing contains at least two heart rate accelerations that are at least 15 beats per minute above the baseline rate and lasting at least 15 seconds from onset to return to baseline within a twenty minute period. Plan: care as scheduled.
[2023-06-20 22:00] VITALS: O2SAT 99
== END 2023-06-20 19:45 | disposition home or self-care (01) ==
LOC: WFO 18:23 → FBP 18:28 → WFO 19:45
PROVIDERS: ATTEND Obstetrics & Gynecology
DX: O36.5930 Maternal care for other known or suspected poor fetal growth, third trimester, not applicable or unspecified (principal); Z3A.38 38 weeks gestation of pregnancy
CPT/HCPCS: 59025; 93975

== ENCOUNTER 2023-06-20 18:27 | Outpatient (CLI) | payer OTHER ==
--- NOTE | 2023-06-21 15:50 | Ultrasound Report ---
PROCEDURE: OB Biophysical Profile INDICATIONS: IUGR OUTSIDE/PRIOR DATING DATA: Last menstrual period (LMP): Unknown. LMP-based estimated date of delivery (KISHA): Unknown. First dating scan (date and location): 01/09/2023. Estimated date of delivery (KISHA) from first dating scan: 07/02/2023. The below data below was generated using the ultrasound KISHA of 07/02/2023 TECHNIQUE: Real-time scanning was performed of the fetus, with image documentation and biometric celeste surements. Biophysical profile was also obtained. COMPARISON: OB ultrasound 06/17/2023 FINDINGS: General: A single living intrauterine gestation is present. Presentation: Vertex Placenta: Placental position is posterior, without previa. Amniotic fluid index: 13.1 cm, within normal limits for gestational age. Largest pocket 5 cm heart rate: 141 beats per minute. Maternal cervical canal: Not well seen . biometrics: Estimated gestational age from initial scan: 38 weeks 2 days Biophysical profile: Tone: 2 points. Movement: 2 points. Respiration: 2 points. Largest pocket of fluid: 2 points. Umbilical artery Doppler: 2.6, 2.4, 2.7 IMPRESSION: Single live intrauterine with gestational age 38 weeks 2 days. BPP 8 out of 8 Reviewed by: Hamida London MD on 06/21/2023 3:48 PM PDT Approved by: Hamida London MD on 06/21/2023 3:48 PM PDT Station ID: [id number]
--- NOTE | 2023-06-21 18:31 | Ultrasound Report ---
PROCEDURE: Doppler Complete INDICATIONS: IUGR, BP WITH CORD DOPPLER. TECHNIQUE: Umbilical artery Doppler was recorded COMPARISON: Umbilical artery Doppler on June 13, 2023. FINDINGS: Umbilical artery Doppler S/D ratios: 2.6, 2.4, 2.7. Estimated gestational age is 38 weeks and 2 days IMPRESSION: 1.Single living intrauterine with gestational age of 38 weeks and 2 days. 2.S/D ratio is within normal limits. Reviewed by: Rashmi Paiz MD on 06/21/2023 6:29 PM PDT Approved by: Rashmi Paiz MD on 06/21/2023 6:29 PM PDT Station ID: [id number]
== END 2023-06-20 18:28 | disposition home or self-care (01) ==
LOC: DI 18:27
PROVIDERS: ATTEND Obstetrics & Gynecology
DX: O36.5930 Maternal care for other known or suspected poor fetal growth, third trimester, not applicable or unspecified (principal); Z3A.38 38 weeks gestation of pregnancy
CPT/HCPCS: 93975

== ENCOUNTER 2023-06-21 10:52 | Outpatient (CLI) | payer OTHER ==
[2023-06-21 11:12] VITALS: BP 113/72
--- NOTE | 2023-06-21 19:54 | PROVIDER PROGRESS NOTE ---
- HPI Chief Complaint: Decreased movement Current : Current EDU 07/02/23 Gestation 38 Weeks and 3 Days 4 Para 2 Vital Signs Temperature 98.1 F 06/21/23 11:00 Heart Rate 103 H 06/21/23 11:00 Respiratory Rate 17 06/21/23 11:00 Blood Pressure 113/72 06/21/23 11:00 Temperature 98.1 F 06/21/23 11:00 Heart Rate 103 H 06/21/23 11:00 Respiratory Rate 17 06/21/23 11:00 Blood Pressure 113/72 06/21/23 11:00 O2 Saturation If not protocol: Oxygen Flow, liters/minute - Procedures OB Procedure Performed: NST NST Procedure: NST Procedure Start Date 06/21/23 Start Time 10:54 Stop Time 12:05 Vibroacoustic Stimulation Used No Patient States Movement decreased Service Date of procedure: 06/21/23 (Read 06/21/23) - Plan Plan: Patient is a 32-year-old -0-2-2 at 38 weeks 3 days gestation presenting for decreased movement. She says her fetus has been less active since last night which is typical for her, but today also felt it was decreased which is unusual. She does have some movement and attempted to kick counts although did not feel like this was sufficient. No leaking or bleeding. Rare contraction. No significant change. heart tracin bpm baseline, moderate variability, accelerations present, no decelerations. Reactive NST Seis [place]: Quiescent ODETTE: 12.6 cm Assessment and plan -Decreased movement: Dorris baby move some while here although still decreased. -Modified BPP is good. Plenty of fluid, consistent with yesterday's BPP. NST is reactive. -Discussed kick count procedure. Patient will attend this again if worried. If not will call or return. 30 weeks gestation -Routine care. Planning for repeat section next week.
== END 2023-06-21 12:20 | disposition home or self-care (01) ==
LOC: WFO 10:52 → FBP 10:53 → WFO 12:20
PROVIDERS: ATTEND Obstetrics & Gynecology
DX: O36.8130 Decreased fetal movements, third trimester, not applicable or unspecified (principal); Z3A.38 38 weeks gestation of pregnancy
CPT/HCPCS: 59025; 99214; 99215

== ENCOUNTER 2023-06-24 16:31 | Outpatient (CLI) | payer OTHER ==
[2023-06-24 16:44] VITALS: BP 113/70
--- NOTE | 2023-06-24 18:51 | PROCEDURE REPORT ---
- HPI Diagnosis/Indication for NST: Intrauterine growth restriction Current EDU 07/02/23 Gestation 38 Weeks and 6 Days 3 Para 2 Vital Signs Temperature 98.1 F 06/24/23 16:38 Heart Rate 97 06/24/23 16:38 Respiratory Rate 17 06/24/23 16:38 Blood Pressure 113/70 06/24/23 16:38 Temperature 98.1 F 06/24/23 16:38 Heart Rate 97 06/24/23 16:38 Respiratory Rate 17 06/24/23 16:38 Blood Pressure 113/70 06/24/23 16:38 O2 Saturation If not protocol: Oxygen Flow, liters/minute - NST Procedure NST Procedure Start Date 06/24/23 Start Time 16:35 Stop Time 17:18 Vibroacoustic Stimulation Used No Patient States Movement Yes - Results and Plan Findings/Impression: Reactive for of 32 weeks gestation or more. NST tracing contains at least two heart rate accelerations that are at least 15 beats per minute above the baseline rate and lasting at least 15 seconds from onset to return to baseline within a twenty minute period. Plan: c section monday
== END 2023-06-24 17:20 | disposition home or self-care (01) ==
LOC: WFO 16:31 → FBP 16:31 → WFO 17:20
PROVIDERS: ATTEND Obstetrics & Gynecology
DX: O36.5930 Maternal care for other known or suspected poor fetal growth, third trimester, not applicable or unspecified (principal); Z3A.38 38 weeks gestation of pregnancy
CPT/HCPCS: 59025

== ENCOUNTER 2023-06-27 05:31 | Inpatient (IN) | payer OTHER ==
[2023-06-27] MEDS ORDERED: CITRIC ACID/SODIUM CITRATE 15 ML UDC PO ONE (06:02)
[2023-06-27 06:33] LABS: BASOPHILS % (AUTO) 0.3 %; EOSINOPHILS # (AUTO) 0.1 10^3/uL (0.0-0.7); EOSINOPHILS % (AUTO) 0.7 %; HCT - HEMATOCRIT 32.7 % (37.0-47.0); HGB - HEMOGLOBIN 10.2 g/dL (12.0-16.0); LYMPHOCYTES # (AUTO) 2.5 10^3/uL (1.5-3.5); LYMPHOCYTES % (AUTO) 29.3 %; MEAN CORPUSCULAR HEMOGLOBIN 23.3 pg (27.0-31.0); MEAN CORPUSCULAR HGB CONC 31.2 g/dL (32.0-36.0); MEAN CORPUSCULAR VOLUME 74.7 fL (81.0-99.0); MEAN PLATELET VOLUME 12.6 fL (7.9-10.8); MONOCYTES # (AUTO) 0.6 10^3/uL (0.0-1.0); MONOCYTES % (AUTO) 7.4 %; NEUTROPHILS # (AUTO) 5.3 10^3/uL (1.5-6.6); NEUTROPHILS % (AUTO) 61.8 %; RED BLOOD COUNT 4.38 10^6/uL (4.20-5.40); RED CELL DISTRIBUTION WIDTH 14.8 % (12.0-15.0); WHITE BLOOD COUNT 8.6 x10^3/uL (4.8-10.8)
[2023-06-27 06:36] LABS: PLT - PLATELET COUNT 181 10^3/uL (130-450)
[2023-06-27] MEDS ORDERED: PHENYLEPHRINE HCL 0.5 MG/5 ML AMPULE ONE (07:00)
[2023-06-27] MEDS ORDERED: ePHEDrine 50 MG/ML VIAL IVP ONE (07:01)
[2023-06-27] MEDS ORDERED: SODIUM CHLORIDE 0.9% 10 ML VIAL IVP ONE ×2 (07:01→07:04)
[2023-06-27] MEDS ORDERED: OXYTOCIN/SODIUM CHLORIDE 500 ML IV ONE (07:02)
[2023-06-27] MEDS ORDERED: OXYTOCIN 10 UNIT/ML VIAL ONE (07:04)
[2023-06-27] MEDS ORDERED: MORPHINE PF 5 MG/10 ML VIAL ONE (07:05)
[2023-06-27] MEDS ORDERED: fentaNYL 100 MCG/2 ML VIAL ONE (07:05)
--- NOTE | 2023-06-27 07:09 | ANESTHESIA ---
Pre-Anesthesia VS, & Labs - Diagnosis previous c/s - Procedure repeat c/s Vital Signs: Temp Pulse Resp BP Pulse Ox O2 Flow Rate 36.9 C 93 14 104/68 06/27/23 06:15 06/27/23 06:15 06/27/23 06:15 06/27/23 06:15 Height: 5 ft 4 in Weight (kg): 74 kg Body Mass Index: 28.0 BMI Classification: Overweight - NPO >8 hours - Is Patient ?: Yes - Lab Results Current Lab Results: Laboratory Tests 06/27/23 06:21: WBC 8.6, RBC 4.38, Hgb 10.2 L, Hct 32.7 L, MCV 74.7 L, MCH 23.3 L, MCHC 31.2 L, RDW 14.8, Plt Count 181, MPV 12.6 H, Neut # (Auto) 5.3, Lymph # (Auto) 2.5, Cameron # (Auto) 0.6, Eos # (Auto) 0.1, Baso # (Auto) 0.0, Absolute Nucleated RBC 0.00, Nucleated RBC % 0.0 Lab results reviewed: Yes Fish Bones: 06/27/23 06:21 Home Medications and Allergies Active Medications Lactated Ringer's (Lr) 1,000 mls @ 125 mls/hr IV .Q8H SHANIA Iron Allergies/Adverse Reactions: Allergies Allergy/AdvReac Type Severity Reaction Status Date / Time iodine Allergy Unknown Verified 01/27/23 11:09 Anes History & Medical History - Anesthetic History Anesthesia Complications: reports: No previous complications Family history of Anesthesia Complications: Denies Family history of Malignant Hyperthermia: Denies - Medical History Cardiovascular: reports: None Pulmonary: reports: None Gastrointestinal: reports: None Urinary: reports: None Neuro: reports: None Musculoskeletal: reports: None Endocrine/Autoimmune: reports: None Blood Disorders: reports: None Skin: reports: None Smoking Status: Never smoker Psychosocial: reports: No issues indicated History of Cancer?: No - Surgical History Gynecologic: reports: section Exam General: Alert, Oriented x3, Cooperative, No acute distress Dental: WNL Mouth Openin Fingerbreadth Neck Mobility: Normal Mallampati classification: II Thyromental Distance: 4-6 cm Mental/Cognitive Status: Alert/Oriented X3, Normal for patient Plan Anesthesia Type: Spinal Consent for Procedure(s) Verified and Reviewed: Yes Code Status: Attempt Resuscitation ASA classification: 2-Mild systemic disease Is this case an emergency?: No
[2023-06-27] MEDS ORDERED: ONDANSETRON 4 MG/2 ML VIAL IVP PRN ×2 (07:14→08:08)
[2023-06-27] MEDS ORDERED: HYDROmorphone 0.5 MG/0.5 ML SYRINGE IVP PRN (07:14)
[2023-06-27] MEDS ORDERED: METOCLOPRAMIDE 10 MG/2 ML VIAL IVP PRN ×2 (07:14→08:08)
[2023-06-27] MEDS ORDERED: ATROPINE ABBOJECT 1 MG/10 ML SYRINGE IVP PRN (07:14)
[2023-06-27] MEDS ORDERED: ePHEDrine 50 MG/ML VIAL IVP PRN ×2 (07:14→08:08)
[2023-06-27] MEDS ORDERED: NALOXONE 0.4 MG/ML VIAL IVP PRN ×2 (07:14→08:08)
[2023-06-27] MEDS ORDERED: MORPHINE 2 MG/ML CARPUJECT IVP PRN (07:14)
[2023-06-27] MEDS ORDERED: fentaNYL 100 MCG/2 ML VIAL IVP PRN (07:14)
[2023-06-27] MEDS ORDERED: LEVONORGESTREL 14 MCG/24 HR IUD IY ONE (07:24)
[2023-06-27] MEDS ORDERED: LEVONORGESTREL 20 MCG/24H IUD IY ONE (07:26)
--- NOTE | 2023-06-27 07:26 | HISTORY & PHYSICAL EXAMINATION ---
Admit History - Smoking Status: Never smoker - Mother's Labs Mother's Blood Type: positive: O Mother's RH: positive: Positive GBS: positive: Group B Strep Positive Rubella Status: positive: Immune - Other Maternal History Other Maternal History: HPI: Patient is a 32-year-old -0-1-2 at 39 weeks 2 days gestation presenting for repeat section. She has good movement. Denies loss of fluid. No PATE/BV or RUQP. No vaginal bleeding. Denies nausea and vomiting. Denies urinary urgency or dysuria. All other symptoms reviewed and were negative except per HPI. Course LMP: unknown KISHA by LMP: 01/09/2023/15+1 Final KISHA: 07/02/2023 PROBLEMS: 1. close interval - baby 5 1/2 months old at time of conception 2. h/o 2 prior C/S - NRFHT / scheduled RCS for repeat C/S, discussed RBA 3. Anemia Continue iron supplementation. Normal hemoglobin electrophoresis. 4.CALCIFICATIONS OF BASAL GANGLIA - went to ED with severe PATE - did cat scan, found calcifications, referral sent to neuro 02/09. 5. Asymmetrical growth Refer to MFM. Diagnosed 05/12. -EFW 1853 g, 17th percentile. BPD, HC, FL all below 10th percentile. AC 50th percentile. 6. Desires post placental IUD with Karolyn Moving in September Pre- Weight:161.2 BMI: 26.92 Blood type: O + Antibody: Negative CBC: PLT: 328 HCT: 34.5 HGB: 10.8 RUB: 50 VZV: <135 NON immune-counseled HBsAg: Negative HepC: NR RPR/AB-EIA: NR HIV: NR PAP: Last pap: 08/20/19 DO GC/CT: neg HSV: denies Genetic testin02/06/23 Quad screen- Negative Covid: declined Flu: declined RSV : Declines FAS: 02/24 Placenta: Posterior Cord: 3VC ODETTE: 14.6cm EFW: 454g 71st %tile 50gm OGCT: 88 TDAP: declined Breast Pump: 04/06 3rd trimesterH/H 10.1/32.2 PH 250 GBS: Positive Delivery plan: RCS Contraception: Desires Karolyn post placental placement. PMH Anemia PSH Previous low-transverse section x 2 OB History -0-1-2 1. SAB 2. 03/04/2020: 41 weeks, section, intolerance of labor, male 3. 05/20/2022, 39 weeks, section, repeat SH Denies tobacco, alcohol, drugs Family History Father: Hypertension Grandfather: Diabetes Allergies Iodine Medications vitamin Ferrous sulfate Physical exam: General: Alert, oriented, no acute distress Head: Normal cephalic atraumatic Eyes: PERRLA, extraocular motions intact. Respiratory: Normal rate of respiration. No accessory muscle use, normal respiratory effort. Cardiovascular: Regular rate and rhythm Abdomen: Gravid, nontender, nondistended. Previous scar Extremities: Normal range of motion Neuro: Oriented x3. Normal movements Psych: Appropriate mood and affect. Normal judgment and insight FHT: 145 bpm baseline, moderate variability, accelerations present, no decelerations. [place]: Irregular Plan 32-year-old -0-1-2 at 39 weeks 2 days gestation here for repeat section 1. Repeat section -Admit labs, 2 g cefazolin for surgical prophylaxis. 2. Previous low-transverse section x 2 -Second IV in case of hemorrhage 3. 39 weeks gestation 4. Contraceptive management -Karolyn post placental. 5. Anemia -Preoperative hemoglobin 10.2. Stable throughout . - HPI Vital Signs Temperature 98.4 F 06/27/23 06:15 Heart Rate 93 06/27/23 06:15 Respiratory Rate 14 06/27/23 06:15 Blood Pressure 104/68 06/27/23 06:15 Temperature 98.4 F 06/27/23 06:15 Heart Rate 93 06/27/23 06:15 Respiratory Rate 14 06/27/23 06:15 Blood Pressure 104/68 06/27/23 06:15 O2 Saturation If not protocol: Oxygen Flow, liters/minute - NST Procedure NST Procedure Start Time 16:35 Stop Time 17:18 Meds/Allgy - Home Medications Home Medications: Ambulatory Orders Medication Instructions Recorded Confirmed Acetaminophen [Acetaminophen Extra 1,000 mg PO Q8H PRN #60 tablet 05/21/22 Strength] Docusate Sodium 100Mg Capsule 100 - 200 mg PO BID PRN #60 cap 05/21/22 [Colace 100Mg Capsule] oxyCODONE [Roxicodone] 2.5 - 5 mg PO Q4H PRN #24 tablet 05/21/22 - Allergies Allergies/Adverse Reactions: Allergies Allergy/AdvReac Type Severity Reaction Status Date / Time iodine Allergy Unknown Verified 01/27/23 11:09 Physical - Abdominal Exam Vital Signs: Temp Pulse Resp BP Pulse Ox O2 Flow Rate 98.4 F 93 14 104/68 06/27/23 06:15 06/27/23 06:15 06/27/23 06:15 06/27/23 06:15 Plan for Labor - Plan For Labor I expect patient to be DC'd or transferred within 96 hours.: Yes
[2023-06-27] MEDS ORDERED: fentaNYL 100 MCG/2 ML VIAL IT ONE (07:44)
[2023-06-27] MEDS ORDERED: MORPHINE PF 5 MG/10 ML VIAL IT ONE (07:44)
[2023-06-27] MEDS ORDERED: ceFAZolin 1 GM VIAL ONE (07:50)
[2023-06-27] MEDS ORDERED: LACTATED RINGERS 1,000 ML IV SCH ×2 (08:00→10:00)
[2023-06-27] MEDS ORDERED: ONDANSETRON 4 MG/2 ML VIAL ONE (08:06)
[2023-06-27] MEDS ORDERED: NALBUPHINE 10 MG/ML AMP IVP PRN (08:08)
[2023-06-27] MEDS ORDERED: ACETAMINOPHEN 1,000 MG/100 ML 1,000 MG/100 ML BAG IV ONE (08:15)
[2023-06-27] MEDS ORDERED: KETOROLAC 30 MG/ML VIAL ONE (08:23)
[2023-06-27] MEDS: LEVONORGESTREL 14 MCG/24 HR IUD IY ONE (08:32)
[2023-06-27] MEDS ORDERED: diphenhydrAMINE INJ 50 MG/ML VIAL ONE (08:46)
[2023-06-27] MEDS ORDERED: OXYTOCIN/SODIUM CHLORIDE 500 ML IV PRN (09:19)
[2023-06-27] MEDS ORDERED: ONDANSETRON ODT 4 MG TABLET TL PRN ×2 (09:19)
[2023-06-27] MEDS: LACTATED RINGERS 950 ML IV ONE ×2 (09:23→09:56)
--- NOTE | 2023-06-27 09:24 | OPERATIVE REPORT ---
Operative Report - General Admit Date: 06/27/23 Procedure Date: 06/27/23 Planned Procedure: Repeat low-transverse section IUD placement Pre-Op Diagnosis: Previous low-transverse section Procedure Performed: Repeat low-transverse section IUD placement Post Op Diagnosis: Previous low-transverse section - Procedure Note Primary Surgeon: Cleve Alvarez MD Secondary Surgeon: KAYLEIGH Longo. Anesthesia Provider: Brody Hall CRNA Anesthesia Technique: Spinal Pathology: None IV Fluids (mL): 1,000 Estimated Blood Loss (mL): 600 Urine Output (mL): 100 Findings: Moderate adhesions to abdominal wall fascia and muscles. Normal-appearing uterus, tubes, ovaries. Fetus in cephalic presentation. Delivered without complications. Appears appropriate for gestational age. Complications: None - Other Other Information/Narrative: Pre-Op diagnoses 39 weeks gestation Previous low-transverse section Asymmetrical restriction Anemia Postop diagnoses Same Abdominal wall adhesions. Status post repeat low-transverse section Delivery of live mitchell section was recommended. Risks, benefits and alternatives were discussed including but not limited to infection, bleeding that may require blood products or hysterectomy for life saving measures, injury to surrounding organs including but not limited to bowel, bladder, ureters, tubes and ovaries and/or the baby. Should injury occur it could require longer/additional surgery to repair. The patient stated understanding and desired to proceed. All questions were answered posed by patient. Prior to being taken to the OR, 2 grams of cefazolin IV was administered. The patient was taken to the operating room where regional anesthesia was found to be adequate. She was then prepared and draped in the usual sterile fashion in the dorsal supine position with a leftward tilt displacing the uterus. Escoto was draining to gravity. SCDs were on bilateral lower extremities. Time out was taken. A pfannenstiel skin incision was then made with the scalpel and carried through to the underlying layer of fascia. The fascia was incised in the midline and the incision extended laterally with the Khan scissors. The superior aspect of the facial incision was then grasped with the Gerhard clamps, elevated and the underlying rectus muscles dissected off sharply. Attention was then turned to the inferior aspect of this incision which in a similar fashion was grasped, elevated with the Gerhard clamps and the rectus muscle dissected off sharply. There was a fair amount of scar tissue connecting the muscles to the fascia as well as adhering them together. The rectus muscles were in the midline. The peritoneum identified, grasped with the pick-ups and entered sharply with the Metzenbaum scissors. The peritoneal incision was then extended superiorly and inferiorly with good visualization of the bladder. The bladder blade was inserted. The vesicouterine peritoneum was identified, grasped with the pick-ups, and entered sharply with Metzenbaum scissors. This incision was then extended laterally and the bladder flap created digitally. The bladder blade was reinserted. The lower uterine segment was identified and incised in a transverse fashion with the scalpel. The uterine incision was then extended bluntly laterally. Artificial rupture of membranes demonstrated clear fluid. The bladder blade was removed. The fetus was in a cephalic presentation. The infants head delivered atraumatically. The anterior shoulders were delivered followed by the posterior shoulders then the remainder of the body. The infants mouth and nose were bulb suctioned. The umbilical cord was clamped times two and cut. The infant was handed to the pediatric team. The placenta was removed with gentle traction. Oxytocin was added to the IV fluid and was allowed to run freely. The uterus was exteriorized and cleared of all clots and debris. The uterine incision was inspected and found to be without any extensions and was repaired with 0 Vicryl in a running, locked fashion. Half way through the closure, the rodrigo iud was opened and strings were trimmed and the device was placed in the uterine fundus with the strings. The remainder of the hysterotomy was closed. A second imbricating layer was performed. 2 additional [id number] stitches were used to achieve hemostasis. Surgicel was placed next to the incised scar tissue as it was found to have multiple areas of venous oozing not responsive to cautery. As there is only small amount, this achieved hemostasis. Upon inspection, the repaired hysterotomy was found to be hemostatic. The uterus was firm and returned to the abdomen. The gutters were cleared of all clots and debris. The muscle layer was examined and found to be hemostatic. The fascia was reapproximated with 0 Vicryl in a running fashion. The skin was closed in a subcuticular fashion with 4-0 Monocryl. The patient tolerated the procedure well. Sponge, lap and needle counts were correct times three. The patient was taken to the recovery room in stable condition. I appreciate the assistance of KAYLEIGH Longo during this procedure, and the assistance in retraction, visualization, dissection, and overall a ssistance during the case were instrumental to the patient's wellbeing.
--- NOTE | 2023-06-27 09:54 | ANESTHESIA POST OP EVALUATION ---
Anesthesia Post Eval - Post Anesthesia Eval Vitals: Last Vital Signs Temp 36.5 C 06/27/23 09:45 Pulse 95 06/27/23 09:45 Resp 100 H 06/27/23 09:45 BP 118/64 06/27/23 09:45 Pulse Ox 100 06/27/23 09:45 O2 Flow Rate CV Function Including HR & BP: Stable Pain Control: Satisfactory Nausea & Vomiting: Negative Mental Status: Baseline Respiratory Status: Airway Patent Hydration Status: Satisfactory Anesthesia Complications: None
--- NOTE | 2023-06-27 10:38 | PHARMACY PROGRESS NOTE ---
- Best Possible Medication History Admit Date and Time: 06/27/23 0531 Processed by: Pharmacy Medications reviewed in ED?: No Medication History completed: No Patient Interview: Pt unable to participate Secondary Source(s): Insurance records As the person ultimately responsible for medication therapy, providers are able to order a medication from an existing home medication list in [facility] via the "Reconcile Routine" prior to Confirmation of that medication by direct support specialist. Such practice is discouraged except when the physician, in their clinical judgment, deems that a medical need exists for a medication without regard to previous use.
[2023-06-27] MEDS: LACTATED RINGERS 1,000 ML IV SCH (11:18)
[2023-06-27] MEDS: KETOROLAC 30 MG/ML VIAL IVP SCH (14:48)
[2023-06-27] MEDS: ACETAMINOPHEN 500 MG TABLET PO ONE (15:55)
[2023-06-27] MEDS: diphenhydrAMINE INJ 50 MG/ML VIAL IVP PRN (16:32)
[2023-06-27] MEDS: oxyCODONE 5 MG TABLET PO PRN (17:13)
[2023-06-27] MEDS: DOCUSATE SODIUM 100 MG CAPSULE PO SCH (20:36)
[2023-06-27] MEDS: SIMETHICONE CHEW 80 MG TABLET PO PRN (20:36)
[2023-06-27] MEDS: ACETAMINOPHEN 500 MG TABLET PO SCH (23:52)
[2023-06-27] MEDS: SODIUM CHLORIDE FLUSH 0.9% 10 ML SYRINGE IVP SCH (23:54)
[2023-06-28] MEDS: SODIUM CHLORIDE FLUSH 0.9% 10 ML SYRINGE IVP PRN (02:41)
[2023-06-28 05:35] VITALS: O2SAT 98
--- NOTE | 2023-06-28 05:45 | PROVIDER PROGRESS NOTE ---
Subjective - Subjective Subjective: Subjective Patient reports she is doing well. Lochia appropriate. Denies heavy bleeding. Ambulating. Pelvic and abdominal pain well-controlled. Tolerating oral intake. Diet: Regular. Voiding without difficulty. Passing flatus. Denies BM. Patient is bonding with baby in room Breast feeding going well. Denies feeling lightheaded, dizzy or excessively fatigued. Control: Karolyn Objective General: Alert, oriented, no apparent distress. Cardiovascular: Regular rate. Regular rhythm. Lungs: No increased work of breathing. Abdomen: Uterus firm. Below umbilicus. No guarding or rebound. Extremities: No pain on palpation. No cords palpated. Distal pulses intact. Incision: Clean, dry, and intact. Bandage removed today Assessment and Plan day 1. -Routine care -Anticipate discharge tomorrow, possibly today if feeling well and baby is discharged. Status post repeat low-transverse section -Routine postoperative care. Objective - Vital Signs/Intake & Output Vital Signs: Vital Signs x48h Temp Pulse Resp BP Pulse Ox 06/28/23 05:00 97.9 F 93 18 95/63 98 06/27/23 23:35 98.1 F 110 H 20 117/62 99 Intake & Output: Intake & Output 06/25/23 06/26/23 06/27/23 06/28/23 23:59 23:59 23:59 23:59 Intake Total 3043 800 Output Total 1100 950 Balance 1943 -150 - Lab Results Fish Bones: 06/27/23 06:21 Other Labs: Lab Results x24hrs 06/27/23 06/27/23 Range/Units 07:00 06:21 WBC 8.6 (4.8-10.8) x10^3/uL RBC 4.38 (4.20-5.40) 10^6/uL Hgb 10.2 L (12.0-16.0) g/dL Hct 32.7 L (37.0-47.0) % MCV 74.7 L (81.0-99.0) fL MCH 23.3 L (27.0-31.0) pg MCHC 31.2 L (32.0-36.0) g/dL RDW 14.8 (12.0-15.0) % Plt Count 181 (130-450) 10^3/uL MPV 12.6 H (7.9-10.8) fL Neut # (Auto) 5.3 (1.5-6.6) 10^3/uL Lymph # (Auto) 2.5 (1.5-3.5) 10^3/uL Lane # (Auto) 0.6 (0.0-1.0) 10^3/uL Eos # (Auto) 0.1 (0.0-0.7) 10^3/uL Baso # (Auto) 0.0 (0.0-0.1) 10^3/uL Absolute Nucleated RBC 0.00 x10^3/uL Nucleated RBC % 0.0 /100WBC Blood Type O POSITIVE Antibody Screen NEGATIVE
[2023-06-28 06:21] LABS: BASOPHILS % (AUTO) 0.2 %; EOSINOPHILS # (AUTO) 0.1 10^3/uL (0.0-0.7); EOSINOPHILS % (AUTO) 0.4 %; HCT - HEMATOCRIT 29.5 % (37.0-47.0); HGB - HEMOGLOBIN 9.2 g/dL (12.0-16.0); LYMPHOCYTES # (AUTO) 2.5 10^3/uL (1.5-3.5); LYMPHOCYTES % (AUTO) 19.9 %; MEAN CORPUSCULAR HEMOGLOBIN 23.4 pg (27.0-31.0); MEAN CORPUSCULAR HGB CONC 31.2 g/dL (32.0-36.0); MEAN CORPUSCULAR VOLUME 75.1 fL (81.0-99.0); MONOCYTES # (AUTO) 0.8 10^3/uL (0.0-1.0); MONOCYTES % (AUTO) 5.9 %; NEUTROPHILS # (AUTO) 9.4 10^3/uL (1.5-6.6); NEUTROPHILS % (AUTO) 73.1 %; RED BLOOD COUNT 3.93 10^6/uL (4.20-5.40); RED CELL DISTRIBUTION WIDTH 14.7 % (12.0-15.0); WHITE BLOOD COUNT 12.8 x10^3/uL (4.8-10.8)
[2023-06-28 06:25] LABS: MEAN PLATELET VOLUME 12.4 fL (7.9-10.8); PLT - PLATELET COUNT 178 10^3/uL (130-450)
--- NOTE | 2023-06-28 07:45 | Discharge Plan ---
Discharge Plan Problem Reviewed?: Yes Disposition: Home, Self Care Condition: Good Diet: Regular Shower Restrictions: No Instruction Topics: C Section Dc No Smoking: If you smoke, Please STOP! Call for help. Follow-up with: Cleve Alvarez MD [Provider Admit Priv/Credential] -
--- NOTE | 2023-06-28 07:48 | DISCHARGE SUMMARY ---
Discharge Summary Admit Date: 06/27/23 Discharge Date: 06/28/23 Discharging Provider: Cleve Alvarez MD Condition at Discharge: Good Discharge Disposition: 01 Home, Self Care - DIAGNOSES Admission Diagnoses: 39 weeks gestation Previous low-transverse section Discharge Diagnoses with Status of Each Condition: Same Status post repeat low-transverse section Delivery of live mitchell . - HPI History of Present Illness: Doing very well. No change in status since this morning. Desires to go home. Physical Exam Constitutional: alert, no acute distress, well hydrated, well developed, well nourished, appropriate dress. Cardiovascular: Regular rate and rhythm. Respiratory: no respiratory distress. Abdomen: nondistended, nontender, no guarding. Incision covered with Steri- Strips. Clean and intact. Small amount of serous drainage. Psych: affect and mood appropriate, normal interaction, good eye contact. - HOSPITAL COURSE Hospital Course: Patient was admitted at 39 weeks gestation for planned repeat low-transverse section. section was uncomplicated and delivery of was uncomplicated. course was uneventful and she was discharged with her on day 1. weighing 3249 g. - ALLERGIES Allergies/Adverse Reactions: Allergies Allergy/AdvReac Type Severity Reaction Status Date / Time iodine Allergy Unknown Verified 01/27/23 11:09 - MEDICATIONS Home Medications: Ambulatory Orders Medication Instructions Recorded Confirmed Acetaminophen [Acetaminophen Extra 1,000 mg PO Q8H PRN #60 tablet 05/21/22 Strength] Docusate Sodium 100Mg Capsule 100 - 200 mg PO BID PRN #60 cap 05/21/22 [Colace 100Mg Capsule] oxyCODONE [Roxicodone] 2.5 - 5 mg PO Q4H PRN #24 tablet 05/21/22 Ferrous Sulfate [Feosol] 325 mg PO BID 06/27/23 06/27/23 Vit No.129/Iron/Folic 1 tab PO DAILY 06/27/23 06/27/23 [ One Daily Tablet] hydrOXYzine HCL [Hydroxyzine HCl] 25 mg PO DAILY PRN 06/27/23 06/27/23 Docusate Sodium 100Mg Capsule 100 - 200 mg PO BID PRN #60 cap 06/28/23 [Colace 100Mg Capsule] Ibuprofen [Motrin] 600 mg PO Q6H PRN #30 tab 06/28/23 oxyCODONE [Roxicodone] 5 mg PO Q4H PRN #20 tablet 06/28/23 - LABS Result Diagrams: 06/28/23 06:09 - FOLLOW UP Follow Up: With Cleve Alvarez MD in 1 week. - TIME SPENT Time Spent in Discharge (Minutes): 30
[2023-06-28] MEDS ORDERED: ACETAMINOPHEN 500 MG TABLET PO PRN (07:54)
[2023-06-28] MEDS: FERROUS SULFATE 325 MG TABLET PO SCH (08:29)
[2023-06-28] MEDS: PRENATAL VITAMIN TABLET PO SCH (08:29)
[2023-06-28] MEDS: IBUPROFEN 600 MG TABLET PO SCH (09:41)
[2023-06-28 09:54] VITALS: BP 103/68
--- NOTE | 2023-06-28 13:24 | Labor Flowsheet ---
Labor Flowsheet Datetime Report Generated by CPN: 06/28/2023 13:24 Datetime: 06/27/2023 06:02 VITAL SIGNS NBP Sys/Lula/Mean (mmHg): 104 : 68 : 77 Pulse: 102 COMMUNICATION LaborFlag: OB Triage
== END 2023-06-28 13:15 | disposition home or self-care (01) | DRG 788 ==
LOC: FBP 05:31
PROVIDERS: ADMIT Obstetrics & Gynecology; ATTEND Obstetrics & Gynecology
PROC: 10D00Z1 Extraction of Products of Conception, Low, Open Approach (ICD-10-PCS; principal; 2023-06-27 07:30)
DX: O34.211 Maternal care for low transverse scar from previous cesarean delivery (principal); O99.824 Streptococcus B carrier state complicating childbirth; O99.02 Anemia complicating childbirth; Z3A.39 39 weeks gestation of pregnancy; Z37.0 Single live birth
CPT/HCPCS: 36415; 85025; 86850; 86900; 86901; A9270; J0131; J1200; J2274; J2372; J7120; J7301